=== PATIENT | male | born 1945 | race Asian ===

== ENCOUNTER 2019-09-26 17:11 | Inpatient (IN) | payer MEDICARE ==
[2019-09-26] VITALS (14 sets, daily range): BP systolic 100–168; BP diastolic 62–97
[~2019-09-26] VITALS: Ht 162.6 cm; Wt 67.1 kg
[2019-09-26] MEDS ORDERED: PROPOFOL 100 ML ONE (17:13)
[2019-09-26] MEDS ORDERED: WATER FOR INJECTION,STERILE 10 ML ONE (17:29)
--- NOTE | 2019-09-26 17:30 | NUR ---
patient came in from care facility, in respiratory failure s/p choking episode, intubated in the field. , RN, RT at bedside. connected to the monitor and pulse ox. IV acces initiated, on the LAC g18 with good blood return. Will continue to monitor accordingly.
[2019-09-26 17:34] LABS: BASOPHILS # (AUTO) 0.1 /CMM (0.0-0.2); BASOPHILS % (AUTO) 0.3 % (0.0-2.0); EOSINOPHILS % (AUTO) 0.2 % (0.0-6.0); HEMATOCRIT 33 % (39-51); HEMOGLOBIN 10.4 g/dL (13.5-17.5); LYMPHOCYTES # (AUTO) 3.2 /CMM (0.8-4.8); LYMPHOCYTES % (AUTO) 16.7 % (20.0-44.0); MEAN CORPUSCULAR HGB CONC 31 g/dl (31.0-36.0); MEAN CORPUSCULAR VOLUME 97 fL (80-96); MONOCYTES # (AUTO) 0.7 /CMM (0.1-1.30); MONOCYTES % (AUTO) 3.8 % (2.0-12.0); PLATELET COUNT (AUTO) 166 /CMM (150-450); RED BLOOD CELL COUNT(AUTO) 3.44 MIL/uL (4.5-6.0); WHITE BLOOD COUNT (AUTO) 18.9 K/uL (4.3-11.0)
[2019-09-26 17:45] LABS: CARBON DIOXIDE 28 mmol/L (21-32); CHLORIDE 102 mmol/L (98-107); CREATININE 3.4 mg/dL (0.6-1.3); GLUCOSE 312 mg/dL (74-106); POTASSIUM 4.5 mmol/L (3.5-5.1); SODIUM SERUM 140 mmol/L (136-145); UREA NITROGEN, BLOOD 33 mg/dL (7-18)
[2019-09-26 17:51] LABS: ALANINE AMINOTRANSFERASE 11 U/L (12-78); ALBUMIN 2.9 g/dL (3.4-5.0); ALKALINE PHOSPHATASE 77 U/L (46-116); ASPARTATE AMINOTRANSFERASE 24 U/L (15-37); BILIRUBIN,DIRECT 0.1 mg/dL (0.0-0.2); BILIRUBIN,TOTAL 0.6 mg/dL (0.2-1.0); TOTAL PROTEIN, SERUM 6.1 g/dL (6.4-8.2)
[2019-09-26] MEDS ORDERED: VECURONIUM 10 MG VIAL IV ONE ×2 (18:00→20:56)
--- NOTE | 2019-09-26 18:01 | NUR ---
see code kiko notes Addendum: 09/26/19 at 1925 by LONDON see code kiko form
[2019-09-26] MEDS ORDERED: MEGE40TA5 PO (18:10)
[2019-09-26] MEDS ORDERED: ATOR10TA PO (18:10)
[2019-09-26] MEDS ORDERED: HYDR-3802 PO (18:10)
[2019-09-26] MEDS ORDERED: SEVE800T8 PO (18:10)
[2019-09-26] MEDS ORDERED: LEVO150T8 PO (18:10)
[2019-09-26] MEDS ORDERED: METO25TA3 PO (18:10)
[2019-09-26] MEDS ORDERED: MAGN400O6 PO (18:10)
[2019-09-26] MEDS ORDERED: NATE120T6 PO (18:10)
[2019-09-26] MEDS ORDERED: AMLO10TA7 PO (18:10)
[2019-09-26] MEDS ORDERED: OMEP40CA13 PO (18:10)
[2019-09-26] MEDS ORDERED: NA P133E RC (18:10)
[2019-09-26] MEDS ORDERED: CLON0.1T PO (18:10)
[2019-09-26] MEDS ORDERED: BISA10SU11 RC (18:10)
[2019-09-26] MEDS ORDERED: VANC125C11 PO (18:10)
[2019-09-26] MEDS ORDERED: HYDR-4384 PO (18:10)
[2019-09-26] MEDS ORDERED: HYDR20TA17 PO (18:10)
[2019-09-26] MEDS ORDERED: DOXA4TAB3 PO (18:10)
--- NOTE | 2019-09-26 18:20 | NUR ---
RT REPORT, @171 PT. 74 Y OLD REC. IN ER ORALLY INTUBATED ETT 6.5 @ 26 CM LIP LINE. PLACED ON VENT WITH NOTED SETTINGS PER Finn TOLEDO (AC,14,400,100%+5) ETT TUBE ADJUSTED ( AT 23 CM LIP) LINE AND SECURED ETT WITH ANCHOR FAST. @174 ABG RESULTS REPORTED TO Finn TOLEDO @175 ETT CHANGED TO 8.0 @ 23 CM LIP LINE BY DR. REID BY BOUGIE AND GOOD COLOR EXCHANGED NOTED VIA CAPNOGRAPHY EQUAL CHEST RISE NOTED B/S BILATERALLY RHONCHI SUCTIONED FOR MODERATED GAYTAN THICK FOOD LIKE SECRETIONS. @180 PT. CODED PULSELESS CPR STARTED/AMBU BAGGED PT. @180 PT. PULSE BACK PT. PLACED BACK ON VENT WITH NOTED VENT CHANGES BY Finn TOLEDO (AC,28,400,100%+10). AMBU BAG REMAIN AT THE BEDSIDE. VENT PLUGGED INTO RED OUTLET. REPORT WILL BE PASS TO PM SHIFT. Addendum: 09/26/19 at 1858 by TATIANNA BELL RT Amended: Links added.
[2019-09-26 18:30] LABS: ABG BASE EXCESS -6.2 mmol/L; ABG OXYGEN SATURATION 44.2 % (92.0-98.5); ABG PCO2 82.6 mmHg (35.0-45.0); ABG PH 7.093 (7.350-7.450); ABG PO2 33.6 mmHg (75.0-100.0); AaDO2 596.8 mmHg; COHb 0.7 % (0.5-1.5); MetHb 0.4 % (0.0-1.5); O2Hb 43.7 % (94.0-97.0); PEEP,BG 5 cm H2O; SITE, ABG Left Brachial; VT, ABG 450 mL
[2019-09-26] MEDS ORDERED: VANCOMYCIN 1 GM in IV D5W 250 ML IV ONE (19:00)
[2019-09-26] MEDS ORDERED: PIPERACILLIN /TAZOBACTAM 2.25 G in IV D5W 50 ML IV ONE (19:00)
[2019-09-26] MEDS ORDERED: IV NS 0.9% 1,000 ML BAG IV ONE (19:00)
--- NOTE | 2019-09-26 19:15 | NUR ---
END TIME FOR [facility]: 1944 END TIME [facility]: 2014
[2019-09-26 19:18] LABS: ABG BASE EXCESS -8.7 mmol/L; ABG OXYGEN SATURATION 98.5 % (92.0-98.5); ABG PCO2 56.2 mmHg (35.0-45.0); ABG PH 7.167 (7.350-7.450); ABG PO2 252.9 mmHg (75.0-100.0); AaDO2 403.9 mmHg; COHb 0.3 % (0.5-1.5); MetHb 0.5 % (0.0-1.5); O2Hb 97.7 % (94.0-97.0); PEEP,BG 10 cm H2O; SITE, ABG Right Brachial; VENT MODE, BG AC 28 400 100% +10; VT, ABG 400 mL
[2019-09-26] MEDS ORDERED: ATROPINE SULFATE INJ 0.4 MG/ML VIAL IV ONE (19:30)
[2019-09-26] MEDS ORDERED: NOREPINEPHRINE 4 MG/4 ML AMPUL IV ONE (19:39)
--- NOTE | 2019-09-26 19:45 | NUR ---
END TIME FOR [facility]: 2044
--- NOTE | 2019-09-26 19:46 | NUR ---
Received report from idalia richards rn for continuity of care. awaiting patient arrival.
--- NOTE | 2019-09-26 19:46 | NUR ---
report given to mali OCHOA for sammy.
[2019-09-26] MEDS: NOREPINEPHRINE 8 MG in IV D5W 500 ML IV PRN ×2 (19:53→20:03)
[2019-09-26] MEDS ORDERED: EPINEPHRINE (1:10,000) SYRINGE 1 MG/10 ML DISP.SYRIN IVP ONE (19:57)
[2019-09-26] MEDS ORDERED: SODIUM BICARBONATE SYR 50 MEQ/50 ML DISP.SYRIN IV ONE (19:57)
[2019-09-26] MEDS ORDERED: ONDANSETRON HCL/PF 4 MG/2 ML VIAL IVP PRN (20:00)
[2019-09-26] MEDS ORDERED: ZOLPIDEM TARTRATE 5 MG TABLET PO PRN (20:00)
[2019-09-26] MEDS ORDERED: NA PHOS,M-B/NA PHOS,DI-BA 1 EA ENEMA RC PRN (20:00)
[2019-09-26] MEDS ORDERED: ACETAMINOPHEN 325 MG TABLET PO PRN (20:00)
[2019-09-26] MEDS ORDERED: BISACODYL SUPP (10 MG) 10 MG/SUPP.RECT SUPP.RECT RC PRN (20:00)
[2019-09-26] MEDS ORDERED: HYDROCODONE/APAP 5/325MG 1 EACH TABLET PO PRN (20:00)
[2019-09-26] MEDS ORDERED: MAG HYDROX/AL HYDROX/SIMETH 30 ML UDC PO PRN (20:00)
[2019-09-26] MEDS ORDERED: MAGNESIUM HYDROXIDE 30 ML UDC PO PRN ×2 (20:00)
--- NOTE | 2019-09-26 20:18 | NUR ---
RECTAL TEMP: 93.9 MD AWARE. ICU MADE AWARE OF THE BEARHUGGER
[2019-09-26] MEDS ORDERED: FEE PK DOSING 1 MIN EA MC ONE (20:28)
[2019-09-26] MEDS ORDERED: NOREPINEPHRINE 16 MG in IV D5W 500 ML IV PRN (20:30)
[2019-09-26] MEDS ORDERED: VANCOMYCIN POST DIALYSIS 500MG IV PRN ×2 (20:30)
--- NOTE | 2019-09-26 20:30 | NUR ---
PT WAS TRANSFERRED TO ICU UNDER ACLS
--- NOTE | 2019-09-26 21:00 | NUR ---
Received patient in no acute distress in bed. patient is sedated on propofol. Intubated with ETT 03/24 at the lip. Tolerating vent setting well. Placed patient on telemetry with SR 1st degree heart block with BBB. Right femoral tlc picc line is clean dry intact and patent with propofol @ 5mcg, levo @ 4mcg, and NS bolus to gravity. Bed in low lock position with rails up x 2. call light within reach and all safety measures ensured and carried out. will continue to monitor patient.
[2019-09-26] MEDS: IV NS 0.9% 1,000 ML IV PRN (21:34)
[2019-09-26] MEDS: PROPOFOL 100 ML IV PRN (21:44)
--- NOTE | 2019-09-26 22:30 | NUR ---
Blood pressure wnl and levophed titrated off. Patient tolerating well. will continue to monitor vitals.
[2019-09-26 22:44] LABS: ABG BASE EXCESS -1.3 mmol/L; ABG OXYGEN SATURATION 98.8 % (92.0-98.5); ABG PCO2 29.9 mmHg (35.0-45.0); ABG PH 7.477 (7.350-7.450); ABG PO2 397.9 mmHg (75.0-100.0); AaDO2 285.2 mmHg; COHb 0.3 % (0.5-1.5); MetHb 0.6 % (0.0-1.5); O2Hb 97.9 % (94.0-97.0); PEEP,BG 0 cm H2O; SITE, ABG Right Brachial; VENT MODE, BG AC 28 400 100% +0; VT, ABG 400 mL
[2019-09-26] MEDS: ATORVASTATIN 10 MG TABLET PO SCH (23:19)
[2019-09-27] VITALS (45 sets, daily range): BP systolic 90–150; BP diastolic 57–86
[2019-09-27] MEDS ORDERED: PIPERACILLIN /TAZOBACTAM 3.375 G in IV D5W 50 ML IV SCH ×2
--- NOTE | 2019-09-27 00:45 | NUR ---
notified Dr. Flores of critical lab value troponin-12.167 with order to start heparin drip per acs protocol. read back orders performed and carried out.
[2019-09-27] MEDS ORDERED: HEPARIN SODIUM,PORCINE/PF 50 UNIT/5 ML DISP.SYRIN IV ONE (01:00)
[2019-09-27] MEDS: HEPARIN INFUSION/D5W 500 ML IV PRN (01:18)
[2019-09-27] MEDS ORDERED: HEPARIN SODIUM, PORCINE 5000 UNITS/1 ML VIAL IV ONE (01:30)
[2019-09-27 04:32] LABS: BASOPHILS % (AUTO) 0.3 % (0.0-2.0); EOSINOPHILS % (AUTO) 0.2 % (0.0-6.0); HEMATOCRIT 25 % (39-51); HEMOGLOBIN 8.1 g/dL (13.5-17.5); LYMPHOCYTES # (AUTO) 0.8 /CMM (0.8-4.8); LYMPHOCYTES % (AUTO) 6.4 % (20.0-44.0); MEAN CORPUSCULAR HGB CONC 32 g/dl (31.0-36.0); MEAN CORPUSCULAR VOLUME 93 fL (80-96); MONOCYTES # (AUTO) 0.5 /CMM (0.1-1.30); MONOCYTES % (AUTO) 3.8 % (2.0-12.0); NEUTROPHILS # (AUTO) 11.1 /CMM (1.8-8.9); NEUTROPHILS % (AUTO) 89.3 % (43.0-81.0); PLATELET COUNT (AUTO) 113 /CMM (150-450); RED BLOOD CELL COUNT(AUTO) 2.67 MIL/uL (4.5-6.0); WHITE BLOOD COUNT (AUTO) 12.5 K/uL (4.3-11.0)
[2019-09-27 04:53] LABS: CALCIUM, SERUM 7.1 mg/dL (8.5-10.1); CARBON DIOXIDE 29 mmol/L (21-32); CHLORIDE 106 mmol/L (98-107); CREATININE 3.6 mg/dL (0.6-1.3); GLUCOSE 211 mg/dL (74-106); MAGNESIUM 1.6 mg/dL (1.8-2.4); PHOSPHORUS 2.5 mg/dL (2.5-4.9); POTASSIUM 4.4 mmol/L (3.5-5.1); SODIUM SERUM 142 mmol/L (136-145); UREA NITROGEN, BLOOD 42 mg/dL (7-18)
[2019-09-27 04:58] LABS: CHOLESTEROL 55 mg/dL (<200); HDL CHOLESTEROL 25 mg/dL (40-60); LDL 20 mg/dL (0-99); TRIGLYCERIDES 30 mg/dL (30-150)
--- NOTE | 2019-09-27 05:30 | NUR ---
Received critical lab value ptt- 124.6 0605- held heparin for 60 min and restart with a decrease of 150 units. 0705- Restarted heparin at 555 per protocol and ordered aptt in 6 hrs at 1300.
[2019-09-27] MEDS: IV NS 0.9% 1,000 ML IV PRN ×2 (06:58→18:12)
--- NOTE | 2019-09-27 07:57 | NUR ---
Yonathan STONE POLISHER MACHINE aware of patient "twitches"
--- NOTE | 2019-09-27 07:58 | NUR ---
Patient remains in no acute distress in bed. patient continues sedated on propofol with frequent twitching for 1-2 seconds elicited by loud noises. No signs of bleeding noted. patient tolerating vent setting well. endorsed care to am RN for continuity of care.
[2019-09-27] MEDS ORDERED: Magnesium 1GM/D5W 100ML PREMIX 100 ML IV SCH (08:00)
[2019-09-27] MEDS: LEVOTHYROXINE SODIUM 75 MCG TABLET PO SCH (08:06)
[2019-09-27] MEDS: PANTOPRAZOLE 40 MG TABLET.DR PO SCH ×2 (08:06→18:10)
[2019-09-27] MEDS: SEVELAMER CARBONATE 800 MG TABLET PO SCH ×3 (08:06→18:10)
[2019-09-27] MEDS: MEGESTROL ACETATE 40 MG TABLET PO SCH ×2 (08:06→18:10)
[2019-09-27] MEDS: HYDROCORTISONE 20 MG TABLET PO SCH ×2 (08:12→18:10)
[2019-09-27] MEDS: METOPROLOL SUCCINATE 50 MG TAB.SR.24H PO SCH (08:14)
--- NOTE | 2019-09-27 08:17 | NUR ---
WOUND CARE CONSULT: PT PRESENTS WITH MULTIPLE SKIN ISSUES PRESENT ON ADMISSION INCLUDING BUTTOCKS INCONTINENCE ASSOCIATED SKIN DAMAGE, VERY BONY SACRAL AREA AND RT 3RD TOE WOUND. RECOMMEND SURGICAL AND DPM CONSULTS. DR MICHEL AND DR PANDA NOTIFIED OF CONSULT REQUESTS. FIRST STEP LOW AIRLOSS MATTRESS ORDERED. ALL SKIN PROTECTION RECOMMENDATIONS DISCUSSED WITH NURSING STAFF. PT INTUBATED WITH CURRENT SHAILESH SCORE OF 9. WILL SEE PRN. DUONG IN AGREEMENT WITH PLAN OF CARE. DIETARY CONSULT IN PLACE. Addendum: 09/27/19 at 0821 by GERALDO HAMEED WNDNU Amended: Links added.
[2019-09-27] MEDS ORDERED: NATEGLINIDE 60 MG TABLET PO PRN (09:00)
[2019-09-27] MEDS: VANCOMYCIN HCL 125 MG/2.5 ML ORAL.SUSP PO SCH ×2 (12:43→18:10)
[2019-09-27] MEDS: PROPOFOL 100 ML IV PRN (12:44)
[2019-09-27] MEDS: PIPERACILLIN /TAZOBACTAM 2.25 G in IV D5W 50 ML IV SCH ×2 (14:00→21:00)
[2019-09-27] MEDS: LORAZEPAM INJ 2 MG/ML VIAL IV PRN (14:53)
--- NOTE | 2019-09-27 16:16 | NUR ---
RT RECEIVED PT ORALLY INTUBATED WITH 8.0 ETT SECURED AT 23 CM AT THE LIP. POWER PLANT OPERATOR DONE. VENT PLUGGED INTO RED OUTLET. ALARMS ON AND WORKING PROPERLY. SUCTIONED MOD AMOUNTS OF GAYTAN SECRETIONS. NO SOB OR SIGNS OF DISTRESS NOTED AT THIS TIME. WILL CONTINUE TO MONITOR FOR ANY CHANGES. Addendum: 09/27/19 at 1835 by OLIVERIO LOPEZ RT Amended: Links added.
--- NOTE | 2019-09-27 16:24 | NUR ---
Per Camryn from central supply, [employer] mattress has been ordered from supplier, unknown ETA.
[2019-09-27] MEDS ORDERED: HYDROCORTISONE 10 MG TABLET PO SCH (18:00)
--- NOTE | 2019-09-27 19:00 | NUR ---
Received patient orally intubated on AC mode, breathing regular and non labored,but slightly tachypneic with RR 28-30 ,with PIP= 32. Sedated on low dose Propofol ,slight cough and gag when suctioned, no movement of any extremities even to deep pain (flaccid), noted twitching of face/eyes .Off Levophed drip (BP stable), On Heparin drip @ 555 units /hr. (ACS Protocol), will closely monitor for S/S of bleeding. OGT clamped,no feeding at this time. Patient Anuric with HD catheter @ right subclavian. Triple Lumen Catheter @ right femoral area.Comfort care done.Seizure Precaution/ Aspiration Precaution and turning q 2 hrs.
--- NOTE | 2019-09-27 19:58 | NUR ---
RECEIVED PT ORALLY INTUBATED WITH 8.0 SECURED @ 23 CM LIP LINE ON VENT WITH NOTED SETTINGS . NO RESP DISTRESS NOTED. PT TOLERATING VENT SETTINGS. PT IS SEDATED AND RESPONDS TO STIMULI WHEN SUCTION. CUFF LONG DISTANCE OPERATOR, SX'D DONE PRN. VENT ALARMS SET AND AUDIBLE. AMBU BAG AT BEDSIDE. VENT PLUGGED INTO RED OUTLET. WILL CONTINUE TO MONITOR THE PT T/O SHIFT.
[2019-09-27] MEDS ORDERED: VALPROATE 750 MG in IV D5W 100 ML IV ONE (21:00)
[2019-09-27] MEDS: ATORVASTATIN 10 MG TABLET PO SCH (22:00)
--- NOTE | 2019-09-27 22:00 | NUR ---
No change in status ,still with facial twitching and slightly of arms. Not in any distress.v/S stable.
[2019-09-28] VITALS (31 sets, daily range): BP systolic 95–145; BP diastolic 56–84
[2019-09-28] MEDS: VANCOMYCIN HCL 125 MG/2.5 ML ORAL.SUSP PO SCH ×4 (00:06→18:10)
--- NOTE | 2019-09-28 00:15 | NUR ---
lab called relayed lactic acid=2.2
--- NOTE | 2019-09-28 01:15 | NUR ---
Dr. Flores responded,relayed lactic acid of 2.2 . no orders but to repeat lactic acid in am.
--- NOTE | 2019-09-28 02:00 | NUR ---
Am bath done,. a little tachypneic after turning and moving patient after AM care.
--- NOTE | 2019-09-28 02:45 | NUR ---
Twitching seems a little more, Ativan given.
[2019-09-28] MEDS: LORAZEPAM INJ 2 MG/ML VIAL IV PRN (02:46)
--- NOTE | 2019-09-28 04:00 | NUR ---
Twitching subsided, patient calm, no response, + slight cough and slight gag, on low dose Propofol.
[2019-09-28 04:40] LABS: BASOPHILS % (AUTO) 0.4 % (0.0-2.0); EOSINOPHILS % (AUTO) 0.3 % (0.0-6.0); HEMATOCRIT 23 % (39-51); HEMOGLOBIN 7.5 g/dL (13.5-17.5); LYMPHOCYTES # (AUTO) 0.8 /CMM (0.8-4.8); LYMPHOCYTES % (AUTO) 7.5 % (20.0-44.0); MEAN CORPUSCULAR HGB CONC 33 g/dl (31.0-36.0); MEAN CORPUSCULAR VOLUME 93 fL (80-96); MONOCYTES # (AUTO) 0.5 /CMM (0.1-1.30); MONOCYTES % (AUTO) 4.9 % (2.0-12.0); NEUTROPHILS # (AUTO) 8.8 /CMM (1.8-8.9); NEUTROPHILS % (AUTO) 86.9 % (43.0-81.0); PLATELET COUNT (AUTO) 122 /CMM (150-450); RED BLOOD CELL COUNT(AUTO) 2.44 MIL/uL (4.5-6.0); WHITE BLOOD COUNT (AUTO) 10.2 K/uL (4.3-11.0)
[2019-09-28 04:57] LABS: CALCIUM, SERUM 6.4 mg/dL (8.5-10.1); CARBON DIOXIDE 23 mmol/L (21-32); CHLORIDE 105 mmol/L (98-107); CREATININE 4.7 mg/dL (0.6-1.3); GLUCOSE 95 mg/dL (74-106); MAGNESIUM 1.8 mg/dL (1.8-2.4); PHOSPHORUS 2.9 mg/dL (2.5-4.9); POTASSIUM 4.3 mmol/L (3.5-5.1); SODIUM SERUM 141 mmol/L (136-145); UREA NITROGEN, BLOOD 51 mg/dL (7-18)
[2019-09-28] MEDS: PIPERACILLIN /TAZOBACTAM 2.25 G in IV D5W 50 ML IV SCH ×3 (05:09→20:43)
[2019-09-28 05:28] LABS: IRON, SERUM 56 ug/dl (50-175); TOTAL IRON BINDING CAPACITY 59 ug/dl (250-450)
[2019-09-28] MEDS: VALPROATE 250 MG in IV NS 0.9% 100 ML IV SCH ×2 (05:48→14:33)
[2019-09-28] MEDS: IV NS 0.9% 1,000 ML IV PRN ×2 (05:51→20:30)
[2019-09-28 05:54] LABS: FERRITIN 3011 ng/mL (8-388); THYROID STIMULATING HORMONE 17.505 uIU/mL (0.358-3.74)
[2019-09-28 05:55] LABS: VALPROIC ACID 25 ug/mL (50-100)
[2019-09-28] MEDS: PROPOFOL 100 ML IV PRN (06:09)
--- NOTE | 2019-09-28 06:30 | NUR ---
Dr. Flores responded to call, relayed lactic acid of 2.9 from2.2 last night ,no further orders except to just continue IV Fluid.
--- NOTE | 2019-09-28 07:00 | NUR ---
Report given to Gino OCHOA
[2019-09-28 07:53] LABS: ABG BASE EXCESS -0.6 mmol/L; ABG PCO2 27.3 mmHg (35.0-45.0); ABG PH 7.519 (7.350-7.450); ABG PO2 129.5 mmHg (75.0-100.0); AaDO2 124.3 mmHg; COHb 0.3 % (0.5-1.5); MetHb 0.6 % (0.0-1.5); O2Hb 97.1 % (94.0-97.0); SITE, ABG Right Radial
[2019-09-28] MEDS: LEVOTHYROXINE SODIUM 75 MCG TABLET PO SCH (08:21)
[2019-09-28] MEDS: SEVELAMER CARBONATE 800 MG TABLET PO SCH ×3 (08:22→18:08)
[2019-09-28] MEDS: PANTOPRAZOLE 40 MG TABLET.DR PO SCH ×2 (08:56→18:08)
[2019-09-28] MEDS: METOPROLOL SUCCINATE 50 MG TAB.SR.24H PO SCH (08:56)
[2019-09-28] MEDS: HYDROCORTISONE 20 MG TABLET PO SCH ×2 (08:56→18:07)
[2019-09-28] MEDS: MEGESTROL ACETATE 40 MG TABLET PO SCH ×2 (08:56→18:08)
[2019-09-28] MEDS: HYDROGEL DRESSING 90 GM TUBE TP SCH (08:57)
--- NOTE | 2019-09-28 10:09 | NUR ---
RN NOTE 0715: Received patient on sedation of Diprivan 10 for continuous twitching/seizure. ETT to vent, tolerated setting, no respiratory distress noted at this time. With left NGT intact, clamped, noted with gurgling sound upon auscultation. With right fem TLC, on Heparin @ 550u/hr and NS @ 100. On isolation for CDiff, maintained and observed. 0800: S/E by Jozef CHOE, awaiting cardio consult. 0820: S/E by Dr. Sewell, still noted with twitching on face and arms at times. 0940: S/E by Dr. Mai, awaiting HD nurse today for HD. 1000: Jozef CHOE spoke with Dr. Herrera for cardio consult, with order of Trop x2 6hr apart.
--- NOTE | 2019-09-28 16:25 | NUR ---
RN NOTE HD nurse reported 1000mL out. Removed Diprivan, no twitching noted, will continue to monitor.
[2019-09-28 16:55] LABS: BASOPHILS % (AUTO) 0.2 % (0.0-2.0); EOSINOPHILS % (AUTO) 0.1 % (0.0-6.0); HEMATOCRIT 25 % (39-51); HEMOGLOBIN 8.2 g/dL (13.5-17.5); LYMPHOCYTES # (AUTO) 0.5 /CMM (0.8-4.8); LYMPHOCYTES % (AUTO) 4.2 % (20.0-44.0); MEAN CORPUSCULAR HGB CONC 33 g/dl (31.0-36.0); MEAN CORPUSCULAR VOLUME 92 fL (80-96); MONOCYTES # (AUTO) 0.4 /CMM (0.1-1.30); MONOCYTES % (AUTO) 4.1 % (2.0-12.0); NEUTROPHILS # (AUTO) 9.9 /CMM (1.8-8.9); NEUTROPHILS % (AUTO) 91.4 % (43.0-81.0); PLATELET COUNT (AUTO) 126 /CMM (150-450); RED BLOOD CELL COUNT(AUTO) 2.68 MIL/uL (4.5-6.0); WHITE BLOOD COUNT (AUTO) 10.8 K/uL (4.3-11.0)
[2019-09-28] MEDS: HEPARIN INFUSION/D5W 500 ML IV PRN (19:04)
[2019-09-28] MEDS: ATORVASTATIN 10 MG TABLET PO SCH (21:43)
[2019-09-28] MEDS: VALPROATE 500 MG in IV NS 0.9% 100 ML IV SCH (21:44)
[2019-09-29] VITALS (24 sets, daily range): BP systolic 98–150; BP diastolic 47–79
[2019-09-29] MEDS: VANCOMYCIN HCL 125 MG/2.5 ML ORAL.SUSP PO SCH ×4 (00:32→17:19)
[2019-09-29 01:13] LABS: OCCULT BLOOD STOOL POSITIVE (NEGATIVE)
[2019-09-29 04:23] LABS: BASOPHILS % (AUTO) 0.2 % (0.0-2.0); EOSINOPHILS % (AUTO) 0.1 % (0.0-6.0); HEMATOCRIT 24 % (39-51); HEMOGLOBIN 8.1 g/dL (13.5-17.5); LYMPHOCYTES # (AUTO) 0.5 /CMM (0.8-4.8); LYMPHOCYTES % (AUTO) 4.9 % (20.0-44.0); MEAN CORPUSCULAR HGB CONC 33 g/dl (31.0-36.0); MEAN CORPUSCULAR VOLUME 93 fL (80-96); MONOCYTES # (AUTO) 0.4 /CMM (0.1-1.30); NEUTROPHILS # (AUTO) 9.8 /CMM (1.8-8.9); NEUTROPHILS % (AUTO) 90.8 % (43.0-81.0); PLATELET COUNT (AUTO) 144 /CMM (150-450); RED BLOOD CELL COUNT(AUTO) 2.61 MIL/uL (4.5-6.0); WHITE BLOOD COUNT (AUTO) 10.8 K/uL (4.3-11.0)
[2019-09-29 04:37] LABS: CALCIUM, SERUM 6.9 mg/dL (8.5-10.1); CARBON DIOXIDE 26 mmol/L (21-32); CHLORIDE 105 mmol/L (98-107); CREATININE 3.9 mg/dL (0.6-1.3); GLUCOSE 85 mg/dL (74-106); MAGNESIUM 1.8 mg/dL (1.8-2.4); PHOSPHORUS 3.8 mg/dL (2.5-4.9); POTASSIUM 4.4 mmol/L (3.5-5.1); SODIUM SERUM 140 mmol/L (136-145); UREA NITROGEN, BLOOD 38 mg/dL (7-18)
[2019-09-29 04:44] LABS: VALPROIC ACID 38 ug/mL (50-100)
--- NOTE | 2019-09-29 05:45 | NUR ---
KENNEL SUPERVISOR: PT HAD NO SIGNIFICANT BROCK DURING THE SHIFT EXCEPT BECAME HYPOTHERMIC WT T=95.8 AT 0400. PLACED ON TIERRA HUGGER. NO TREMORS/SEIZURE NOTED. SR WT 1ST DEGREE AV BLOCK ON RADIO BOARD OPERATOR. VENT SETTINGS ORDERED WT NO ACUTE DISTRESS. EYES OPEN AND BLINK DURING ADL/ORAL CARE. PTT=51.1, NO CHANGE ON HEPARIN RATE AT 555UNITS/HR AND WILL DRAW ANOTHER PTT IN AM. MADE AWARE OF LACTIC=2.0 WT NO NEW ORDER. WILL CONTINUE TO MONITOR.
[2019-09-29] MEDS: PIPERACILLIN /TAZOBACTAM 2.25 G in IV D5W 50 ML IV SCH ×3 (05:59→20:00)
[2019-09-29] MEDS: IV NS 0.9% 1,000 ML IV PRN ×2 (06:00→20:51)
--- NOTE | 2019-09-29 07:30 | NUR ---
ICU/RN: Pt received, no distress, tolerating current vent settings; isolation precautions observed. DAIJA Haskins at bedside; informed pt is positive for occult blood in stool. Orders noted and carried out.
[2019-09-29 08:13] LABS: BILIRUBIN,DIRECT 0.1 mg/dL (0.0-0.2); BILIRUBIN,TOTAL 0.5 mg/dL (0.2-1.0)
[2019-09-29] MEDS: MEGESTROL ACETATE 40 MG TABLET PO SCH ×2 (08:19→17:18)
[2019-09-29] MEDS: METOPROLOL SUCCINATE 50 MG TAB.SR.24H PO SCH (08:20)
[2019-09-29] MEDS: HYDROGEL DRESSING 90 GM TUBE TP SCH (08:20)
[2019-09-29] MEDS: HYDROCORTISONE 20 MG TABLET PO SCH ×2 (08:20→17:18)
[2019-09-29] MEDS: PANTOPRAZOLE 40 MG TABLET.DR PO SCH ×2 (08:20→17:19)
[2019-09-29] MEDS: LEVOTHYROXINE SODIUM 75 MCG TABLET PO SCH (08:20)
--- NOTE | 2019-09-29 08:45 | NUR ---
ICU/RN: Dr Sewell at bedside; updated on pt status. No seizure activity noted; updated on Depakote level.
--- NOTE | 2019-09-29 09:30 | NUR ---
ICU/RN: Dr Melo at bedside; updated on pt status, remains off sedation. No new orders.
[2019-09-29] MEDS: VALPROATE 500 MG in IV NS 0.9% 100 ML IV SCH ×2 (10:04→20:47)
[2019-09-29] MEDS: SEVELAMER CARBONATE 0.8 GM POWD.PACK GT SCH ×3 (10:04→17:18)
--- NOTE | 2019-09-29 15:30 | NUR ---
ICU/RN: Pt with BM; smear, not enough to collect as sample. Hygienic and wound care rendered.
--- NOTE | 2019-09-29 17:29 | NUR ---
PT RECEIVED ORALLY INTUBATED ON MECHANICAL VENT W/ NOTED SETTINGS. VENT IN RED OUTLET, VENT ALARMS CHECKED AND AUDIBLE, AMBUBAG AT BEDSIDE. PT SX;ED AND LAVAGED PRN. BREATH SOUNDS EQUAL, RHONCHI; ETT SECURE, PATENT AND CLEAN. Addendum: 09/29/19 at 1729 by VIC SALEEM RT Amended: Links added.
--- NOTE | 2019-09-29 18:00 | NUR ---
ICU/RN: Family at bedside; updated on pt status. No new neurological events off sedation. Family to arrange for credit card analyst/account strategist services.
--- NOTE | 2019-09-29 19:16 | NUR ---
RECEIVED PT ORALLY INTUBATED WITH 8.0 SECURED @ 23 CM LIP LINE ON VENT WITH NOTED SETTINGS . NO RESP DISTRESS NOTED. PT TOLERATING VENT SETTINGS. PT IS OBTUNDED. CUFF CUP TRIMMING MACHINE OPERATOR, SX'D DONE PRN. VENT ALARMS SET AND AUDIBLE. AMBU BAG AT BEDSIDE. VENT PLUGGED INTO RED OUTLET. WILL CONTINUE TO MONITOR THE PT T/O SHIFT.
--- NOTE | 2019-09-29 20:00 | NUR ---
Received patient orally intubated obtunded on AC mode,well tolerated breathing even regular and non labored, OGT clamped, pt is npo except meds.. Patient Anuric with HD catheter @ right subclavian. Triple Lumen Catheter @ right femoral area.Seizure Precaution/ Aspiration Precaution and turning q 2 hrs.family at bedside made aware of pt condition, all due meds given as ordered ,ivf of ns at 100ml /hr infusing well v/s stable afebrile . for hd marcial as ordered, kept pts clean dry and comfortable.noted also with generalize edema elevate with pillows. Addendum: 09/30/19 at 0054 by RON SAUL RN edema noted on bilateral upper extremities elevated with pillows.
[2019-09-29] MEDS: ATORVASTATIN 10 MG TABLET PO SCH (22:42)
[2019-09-30] VITALS (24 sets, daily range): BP systolic 101–153; BP diastolic 43–79
[2019-09-30] MEDS: VANCOMYCIN HCL 125 MG/2.5 ML ORAL.SUSP PO SCH ×5 (00:20→23:44)
[2019-09-30 05:00] LABS: BASOPHILS % (AUTO) 0.1 % (0.0-2.0); EOSINOPHILS % (AUTO) 0.1 % (0.0-6.0); HEMATOCRIT 25 % (39-51); HEMOGLOBIN 8.2 g/dL (13.5-17.5); LYMPHOCYTES # (AUTO) 0.4 /CMM (0.8-4.8); LYMPHOCYTES % (AUTO) 6.5 % (20.0-44.0); MEAN CORPUSCULAR HGB CONC 33 g/dl (31.0-36.0); MEAN CORPUSCULAR VOLUME 93 fL (80-96); MONOCYTES # (AUTO) 0.3 /CMM (0.1-1.30); MONOCYTES % (AUTO) 5.3 % (2.0-12.0); NEUTROPHILS # (AUTO) 5.8 /CMM (1.8-8.9); PLATELET COUNT (AUTO) 145 /CMM (150-450); RED BLOOD CELL COUNT(AUTO) 2.64 MIL/uL (4.5-6.0); WHITE BLOOD COUNT (AUTO) 6.6 K/uL (4.3-11.0)
[2019-09-30] MEDS: PIPERACILLIN /TAZOBACTAM 2.25 G in IV D5W 50 ML IV SCH ×3 (05:09→20:47)
--- NOTE | 2019-09-30 06:30 | NUR ---
agricultural research technician notes pts remains in bed on ventilator ac setting well tolerated , npo status , v/s stable afebrile,will endorse to rn day shift for continuity of care.
--- NOTE | 2019-09-30 07:00 | NUR ---
Received pt intubated, ON AC mode, no sob noted, obtunded, L NGT clamped, patent and auscultated, per report pt is npo except meds. Patient Anuric with HD, HD subclavian intact, R Femoral TLC, intact, clean and dry, iv NS running at 100 ml/hr. pt is swallen in both upper and lower extremities that are elevated on pillows. Seizure Precaution/Aspiration Precaution and turning q 2 hrs maintained. Pending HD toady. Safety measures in place, will monitor.
[2019-09-30] MEDS: SEVELAMER CARBONATE 0.8 GM POWD.PACK GT SCH ×3 (08:42→18:03)
[2019-09-30] MEDS: IV NS 0.9% 1,000 ML IV PRN (08:42)
[2019-09-30] MEDS: HYDROCORTISONE 20 MG TABLET PO SCH ×2 (08:42→18:03)
[2019-09-30] MEDS: LEVOTHYROXINE SODIUM 75 MCG TABLET PO SCH (08:43)
[2019-09-30] MEDS: MEGESTROL ACETATE 40 MG TABLET PO SCH ×2 (09:00→18:03)
[2019-09-30] MEDS: PANTOPRAZOLE 40 MG TABLET.DR PO SCH (09:00)
[2019-09-30] MEDS: METOPROLOL SUCCINATE 50 MG TAB.SR.24H PO SCH (09:00)
[2019-09-30] MEDS: HYDROGEL DRESSING 90 GM TUBE TP SCH (09:10)
[2019-09-30] MEDS: VALPROATE 500 MG in IV NS 0.9% 100 ML IV SCH ×2 (09:37→21:20)
--- NOTE | 2019-09-30 09:38 | NUR ---
RN NOTE MEGACE HELD DUE TO NPO STATUS OF PT. TOPROL XL HELD DUE TO HD AND PT ON NGT TUBE PILL CANNOT BE CRUSHED, PROTONIX NEEDS TO BE CHANGED TO POWDER OR IV FORM, WILL FOLLOW UP WITH MD.
[2019-09-30 10:12] LABS: CALCIUM, SERUM 6.2 mg/dL (8.5-10.1); CARBON DIOXIDE 21 mmol/L (21-32); CHLORIDE 103 mmol/L (98-107); CREATININE 4.4 mg/dL (0.6-1.3); GLUCOSE 78 mg/dL (74-106); MAGNESIUM 1.8 mg/dL (1.8-2.4); PHOSPHORUS 4.9 mg/dL (2.5-4.9); POTASSIUM 4.8 mmol/L (3.5-5.1); SODIUM SERUM 138 mmol/L (136-145); UREA NITROGEN, BLOOD 48 mg/dL (7-18)
[2019-09-30] MEDS ORDERED: EPOETIN ALFA (10,000 UNIT) 10,000 UNIT/ML VIAL IV ONE (11:00)
--- NOTE | 2019-09-30 13:30 | NUR ---
RN NOTE ADVANCED NGT FOR 8 CM FURTHER INTO STOMACH PER RADIOLOGIST POST XRAY OF ABDOMEN, VERIFIED WITH DAIJA ROBERT WELL, HE OKAYED, NOW OKAY TO START FEEDING.
[2019-09-30] MEDS: NEPRO 1,000 ML BOTTLE GT PRN (18:02)
[2019-09-30] MEDS: PANTOPRAZOLE 40 MG VIAL IV SCH (18:02)
--- NOTE | 2019-09-30 19:15 | NUR ---
RN OPENING NOTES RECEIVED PATIENT RESTING IN BED, OBTUNDED. ORALLY INTUBATED, MECHANICAL VENT SETTINGS ORDERED, TOLERATING WELL, NO SOB OR RESPIRATORY DISTRESS NOTED. ON TELE MONITOR SR WITH HR 90'S. IV SITE RIGHT FEMORAL TLC FLUSHING AND PATENT, SITE C/D/I, S/L. RIGHT SUBCLAVIAN HD CATH INTACT. LEFT NARE NGT IN PLACE, FLUSHING AND PATENT, NEPRO RUNNING AT 10ML/HR, NO RESIDUAL NOTED, WILL ADVANCE TOLERATED, GOAL 35ML/HR. SAFETY MEASURES AND ISOLATION PRECAUTIONS IN PLACE; HOB ELEVATED, SR UP X2, BED LOCKED AND IN LOW POSITION, CALL LIGHT WITHIN REACH. WILL CONT TO MONITOR CLOSELY.
--- NOTE | 2019-09-30 20:37 | NUR ---
RN NOTES PAGED FASHION MERCHANDISER MD REGARDING PATIENT STARTED GTUBE FEEDING TODAY WITH HX OF DM. ASKED IF OKAY TO ORDER Q6H ACCUCHECK, STATED OKAY VIA TELEPHONE ORDER. WILL ATTEND TO ORDERS. WILL CONT TO MONITOR PT CLOSELY.
[2019-09-30] MEDS: ATORVASTATIN 10 MG TABLET PO SCH (22:14)
[2019-09-30] MEDS: BLOOD SUGAR DIAGNOSTIC 1 EACH STRIP IN SCH (23:33)
[2019-10-01] VITALS (25 sets, daily range): BP systolic 109–154; BP diastolic 43–115
--- NOTE | 2019-10-01 03:30 | NUR ---
RN NOTES PATIENT NOTED CORE TEMP VIA RECTALLY 96.7 F; TIERRA WAGONER INITIATED AND ROOM TEMP INCREASED. WILL CONT TO MONITOR PT CLOSELY.
[2019-10-01] MEDS: PIPERACILLIN /TAZOBACTAM 2.25 G in IV D5W 50 ML IV SCH ×3 (04:33→21:52)
[2019-10-01 05:16] LABS: BASOPHILS % (AUTO) 0.1 % (0.0-2.0); EOSINOPHILS % (AUTO) 0.2 % (0.0-6.0); HEMATOCRIT 24 % (39-51); LYMPHOCYTES # (AUTO) 0.4 /CMM (0.8-4.8); LYMPHOCYTES % (AUTO) 6.5 % (20.0-44.0); MEAN CORPUSCULAR HGB CONC 33 g/dl (31.0-36.0); MEAN CORPUSCULAR VOLUME 94 fL (80-96); MONOCYTES # (AUTO) 0.4 /CMM (0.1-1.30); NEUTROPHILS # (AUTO) 4.6 /CMM (1.8-8.9); NEUTROPHILS % (AUTO) 85.2 % (43.0-81.0); PLATELET COUNT (AUTO) 162 /CMM (150-450); RED BLOOD CELL COUNT(AUTO) 2.55 MIL/uL (4.5-6.0); WHITE BLOOD COUNT (AUTO) 5.4 K/uL (4.3-11.0)
[2019-10-01] MEDS: BLOOD SUGAR DIAGNOSTIC 1 EACH STRIP IN SCH ×4 (05:19→23:45)
[2019-10-01] MEDS: VANCOMYCIN HCL 125 MG/2.5 ML ORAL.SUSP PO SCH ×4 (05:19→23:53)
[2019-10-01 05:38] LABS: CALCIUM, SERUM 6.4 mg/dL (8.5-10.1); CARBON DIOXIDE 24 mmol/L (21-32); CHLORIDE 105 mmol/L (98-107); CREATININE 4.4 mg/dL (0.6-1.3); GLUCOSE 109 mg/dL (74-106); MAGNESIUM 1.9 mg/dL (1.8-2.4); PHOSPHORUS 4.7 mg/dL (2.5-4.9); POTASSIUM 4.8 mmol/L (3.5-5.1); SODIUM SERUM 139 mmol/L (136-145); UREA NITROGEN, BLOOD 42 mg/dL (7-18)
--- NOTE | 2019-10-01 05:53 | NUR ---
RN NOTES CRITICAL LAB CALLED BY DONNA LACTIC ACID 2.0, PREVIOUS LACTIC ACID 2.2; CHARGE NURSE MADE AWARE AND STATED NO NEED TO CONTACT LABORATORY MILLER MD. WILL CONT TO MONITOR PATIENT.
--- NOTE | 2019-10-01 07:12 | NUR ---
RN CLOSING NOTES PATIENT RESTING IN BED, OBTUNDED. PATIENT CORE TEMP NOW 98.8, TIERRA HUGGER REMOVED. ORALLY INTUBATED, MECHANICAL VENT SETTINGS ORDERED, NO SOB OR RESPIRATORY DISTRESS NOTED. ON TELE MONITOR SR WITH HR 70'S. IV SITE RIGHT FEMORAL TLC FLUSHING AND PATENT, SITE C/D/I, S/L. RIGHT SUBCLAVIAN HD CATH INTACT. LEFT NARE NGT IN PLACE, FLUSHING AND PATENT, NEPRO RUNNING AT 35ML/HR, TOLERATING WELL, MINIMAL RESIDUAL NOTED. KEPT PT CLEAN, DRY, AND COMFORTABLE. SAFETY MEASURES AND ISOLATION PRECAUTIONS MAINTAINED. WILL ENDORSE TO AM RN FOR BROCK.
[2019-10-01 07:37] LABS: BILIRUBIN,DIRECT 0.1 mg/dL (0.0-0.2); BILIRUBIN,TOTAL 0.3 mg/dL (0.2-1.0)
[2019-10-01] MEDS: LEVOTHYROXINE SODIUM 75 MCG TABLET PO SCH (07:44)
[2019-10-01] MEDS: SEVELAMER CARBONATE 0.8 GM POWD.PACK GT SCH ×3 (07:44→17:05)
--- NOTE | 2019-10-01 08:01 | NUR ---
RN OPENING NOTES RECEIVED PATIENT RESTING IN BED COMFORTABLY. PT IS OBTUNDED, NON-VERBAL, AND ON BED REST. HE IS ON MECH VENT VIA ETT, TOLERATING WELL, NO SOB OR RESP DISTRESS NOTED. TELE MONITOR SHOWING SR WITH 12T DEGREE HB. NGT TUBE IN LEFT NASAL NARE IS INTACT, RUNNING NEPRO AT 35 ML/HR, TOLERATING WELL, NO RESIDUAL NOTED. R FEMORAL TLC IS PATENT AND INTACT, R SUBCLAVIAN HD CATH IS INTACT. SAFETY MEASURES HAVE BEEN IMPLEMENTED, CALL LIGHT IS WITHIN REACH, BED IS IN LOWEST AND LOCKED POSITION, SIDE RAILS UP X2, WILL CONTINUE TO MONITOR FOR ANY CHANGES.
[2019-10-01] MEDS: MEGESTROL ACETATE 40 MG TABLET PO SCH ×2 (08:26→17:05)
[2019-10-01] MEDS: VALPROATE 500 MG in IV NS 0.9% 100 ML IV SCH ×2 (08:26→20:59)
[2019-10-01] MEDS: PANTOPRAZOLE 40 MG VIAL IV SCH ×2 (08:26→17:05)
[2019-10-01] MEDS: HYDROCORTISONE 20 MG TABLET PO SCH ×2 (08:26→17:05)
[2019-10-01] MEDS: HYDROGEL DRESSING 90 GM TUBE TP SCH (08:28)
[2019-10-01] MEDS: METOPROLOL SUCCINATE 50 MG TAB.SR.24H PO SCH (08:29)
[2019-10-01] MEDS: INSULIN REGULAR, HUMAN 100 UNIT/ML 3 ML VIAL SQ PRN ×2 (18:34→23:45)
--- NOTE | 2019-10-01 19:28 | NUR ---
RN NOTES PATIENT IS RESTING IN BED COMFORTABLY, ON MECH VENT, TOLERATING WELL. PT IS ON CONTACT ISO, IMPLEMENTED AND ENFORCED AT ALL TIMES. NO S/SX OF DISTRESS PRESENT AT THIS TIME. PT NEEDS HAVE BEEN MET, VITAL SIGNS ARE STABLE, NO ACUTE CHANGES OCCURRED THROUGHOUT THE SHIFT. SAFETY MEASURES HAVE BEEN IMPLEMENTED, CALL LIGHT IS WITHIN REACH, BED IS IN LOWEST AND LOCKED POSITION, SIDE RAILS UP X2, PT HAS BEEN ENDORSED TO NIGHTSHIFT RN FOR BROCK.
--- NOTE | 2019-10-01 19:45 | NUR ---
RESTORATIVE REHAB AIDE NOTES, RECEIVED PATIENT RESTING IN BED, OBTUNDED, NON-VERBAL, ON MECHANICAL VENTILATOR TOLERATED SETTINGS WELL, VIA ETT 03/25, AC 12, TV 450, NO SOB/ACUTE DISTRESS NOTED, AFEBRILE, NSR WITH BBB IN TELE MONITOR, NGT TUBE IN LEFT NASAL NARE IS INTACT, RUNNING NEPRO AT 35 ML/HR, TOLERATING WELL, NO RESIDUAL NOTED, R FEMORAL TLC IS PATENT AND INTACT, R SUBCLAVIAN HD CATH IS INTACT, CALL LIGHT IS WITHIN REACH, BED LOCKED AND IN LOWEST POSITION, SIDE RAILS UP X2, WILL CONTINUE TO MONITOR CLOSELY.
--- NOTE | 2019-10-01 19:56 | NUR ---
RT NOTES PT RECEIVED ORALLY INTUBATED WITH 8.0 ETT @ 23CM AT THE LIP ON [facility] VENT ON CHARTED SETTINGS. NO SIGNS OF RESP DISTRESS AT THIS MOMENT. AIRWAY PATENT AND SECURED. MASSEUR/MASSEUSE DONE. PT SUCTIONED. ALARMS SET AND AUDIBLE. AMBUBAG AT BEDSIDE. VENT CONT TO RED OUTLET. WILL CONT TO MONITOR. Addendum: 10/01/19 at 2038 by MARILIN HENRY RT Amended: Links added.
[2019-10-01] MEDS: ATORVASTATIN 10 MG TABLET PO SCH (21:00)
[2019-10-02] VITALS (26 sets, daily range): BP systolic 83–165; BP diastolic 42–80
[2019-10-02 04:28] LABS: BASOPHILS % (AUTO) 0.4 % (0.0-2.0); EOSINOPHILS % (AUTO) 0.1 % (0.0-6.0); HEMATOCRIT 24 % (39-51); LYMPHOCYTES # (AUTO) 0.5 /CMM (0.8-4.8); LYMPHOCYTES % (AUTO) 10.9 % (20.0-44.0); MEAN CORPUSCULAR HGB CONC 33 g/dl (31.0-36.0); MEAN CORPUSCULAR VOLUME 93 fL (80-96); MONOCYTES # (AUTO) 0.4 /CMM (0.1-1.30); MONOCYTES % (AUTO) 9.6 % (2.0-12.0); NEUTROPHILS # (AUTO) 3.5 /CMM (1.8-8.9); PLATELET COUNT (AUTO) 149 /CMM (150-450); RED BLOOD CELL COUNT(AUTO) 2.59 MIL/uL (4.5-6.0); WHITE BLOOD COUNT (AUTO) 4.4 K/uL (4.3-11.0)
[2019-10-02 04:42] LABS: CALCIUM, SERUM 6.3 mg/dL (8.5-10.1); CARBON DIOXIDE 22 mmol/L (21-32); CHLORIDE 104 mmol/L (98-107); GLUCOSE 115 mg/dL (74-106); POTASSIUM 4.6 mmol/L (3.5-5.1); SODIUM SERUM 138 mmol/L (136-145); UREA NITROGEN, BLOOD 48 mg/dL (7-18)
[2019-10-02] MEDS: PIPERACILLIN /TAZOBACTAM 2.25 G in IV D5W 50 ML IV SCH ×3 (05:22→21:57)
[2019-10-02] MEDS: BLOOD SUGAR DIAGNOSTIC 1 EACH STRIP IN SCH ×5 (05:23→23:29)
[2019-10-02] MEDS: VANCOMYCIN HCL 125 MG/2.5 ML ORAL.SUSP PO SCH ×4 (05:24→23:17)
[2019-10-02] MEDS: INSULIN REGULAR, HUMAN 100 UNIT/ML 3 ML VIAL SQ PRN (05:26)
[2019-10-02] MEDS: NEPRO 1,000 ML BOTTLE GT PRN (07:05)
--- NOTE | 2019-10-02 07:30 | NUR ---
ICU/RN: DAIJA Haskins at bedside; updated on pt status, informed pt's BP trending up towards 160. Family still coming to terms with pt's condition, however requested celery cutter services. New orders noted and carried out.
--- NOTE | 2019-10-02 07:36 | NUR ---
RN NOTES, NO CHANGE IN CONDITION DURING THE NIGHT, CONT ON MECHANICAL VENTILATOR TOLERATED SETTINGS WELL, NO SOB/ACUTE DISTRESS NOTED, ENDORSED TO DON CIFUENTES FOR BROCK.
[2019-10-02] MEDS: SEVELAMER CARBONATE 0.8 GM POWD.PACK GT SCH ×3 (08:08→17:04)
[2019-10-02] MEDS: LEVOTHYROXINE SODIUM 75 MCG TABLET PO SCH (08:09)
[2019-10-02] MEDS: METOPROLOL SUCCINATE 50 MG TAB.SR.24H PO SCH (08:09)
[2019-10-02] MEDS: HYDROGEL DRESSING 90 GM TUBE TP SCH (08:09)
[2019-10-02] MEDS: MEGESTROL ACETATE 40 MG TABLET PO SCH ×2 (08:09→16:04)
[2019-10-02] MEDS: HYDROCORTISONE 20 MG TABLET PO SCH ×2 (08:09→17:05)
[2019-10-02] MEDS: PANTOPRAZOLE 40 MG VIAL IV SCH ×2 (08:09→16:04)
--- NOTE | 2019-10-02 09:00 | NUR ---
ICU/RN: Dr Melo rounds; updated on pt status. Positive gag and cough reflex, no seizure activity noted.
[2019-10-02] MEDS: VALPROATE 500 MG in IV NS 0.9% 100 ML IV SCH ×2 (09:14→20:34)
--- NOTE | 2019-10-02 09:30 | NUR ---
ICU/RN: ANIYA Ramírez at bedside for wound care consult. Informed of L ear abrasion, and worsening sacral MASD. New orders noted and carried out.
[2019-10-02] MEDS ORDERED: EPOETIN ALFA (10,000 UNIT) 10,000 UNIT/ML VIAL IV ONE (12:00)
[2019-10-02] MEDS: NEOMY SULF/BACITRAC ZN/POLY 15 GM TUBE TP SCH (12:10)
[2019-10-02] MEDS: CLOTRIMAZOLE 1% 15 GM TUBE TP SCH ×2 (12:11→16:05)
--- NOTE | 2019-10-02 13:30 | NUR ---
ICU/RN: Wound care rendered, tolerated well. Off Kalee-hugger; pt normothermic.
--- NOTE | 2019-10-02 17:00 | NUR ---
ICU/RN: HD complete; 2L out.
--- NOTE | 2019-10-02 20:30 | NUR ---
RICE FIELD WORKER NOTE RECEIVED PT IN BED OBTUNDED, NON VERBAL, ON VENT TOLERATING THE SETTINGS WELL. ETT INTACT AND PATENT 03/25, NO SOB, NO ACUTE DISTRESS NOTED. TEMP WNL. REMAIN IN ISOLATION FOR C DIFF. ISOLATION PRECAUTIONS TAKEN. ON TELE SR WITH INVERTED T WAVE HR 67. LT NARE NGT INTACT AND PATENT INFUSING NEPRO AT 35 ML/HR, NO RESIDUAL NOTED. RT FEMORAL TLC INTACT AND PATENT. ALSO RT SUBCLAVIAN HG CATH INTACT. SIDE RAILS UP X 3 AND CALL LIGHT WITHIN REACH. VSS. CONTINUE TO MONITOR HIM.
[2019-10-02] MEDS: ATORVASTATIN 10 MG TABLET PO SCH (21:57)
[2019-10-02] MEDS: hydrALAZINE HCL IV 20 MG VIAL IV PRN (23:17)
--- NOTE | 2019-10-02 23:20 | NUR ---
MANAGER HEAVY EQUIPMENT NOTE B/P NOTED 162/68, HYDRALAZINE 0.5 ML IVP GIVEN. CONTINUE TO MONITOR HIM.
--- NOTE | 2019-10-02 23:50 | NUR ---
DOCUMENT PROCESSING SPECIALIST NOTE B/P CAME DOWN TO 132/68
[2019-10-03] VITALS (24 sets, daily range): BP systolic 113–143; BP diastolic 49–73
[2019-10-03 04:44] LABS: BASOPHILS % (AUTO) 0.2 % (0.0-2.0); EOSINOPHILS % (AUTO) 0.7 % (0.0-6.0); HEMATOCRIT 25 % (39-51); HEMOGLOBIN 8.3 g/dL (13.5-17.5); LYMPHOCYTES # (AUTO) 0.5 /CMM (0.8-4.8); MEAN CORPUSCULAR HGB CONC 33 g/dl (31.0-36.0); MEAN CORPUSCULAR VOLUME 93 fL (80-96); MONOCYTES # (AUTO) 0.4 /CMM (0.1-1.30); MONOCYTES % (AUTO) 8.8 % (2.0-12.0); NEUTROPHILS # (AUTO) 3.7 /CMM (1.8-8.9); NEUTROPHILS % (AUTO) 79.3 % (43.0-81.0); PLATELET COUNT (AUTO) 132 /CMM (150-450); RED BLOOD CELL COUNT(AUTO) 2.67 MIL/uL (4.5-6.0); WHITE BLOOD COUNT (AUTO) 4.7 K/uL (4.3-11.0)
[2019-10-03 04:55] LABS: CALCIUM, SERUM 6.7 mg/dL (8.5-10.1); CARBON DIOXIDE 25 mmol/L (21-32); CHLORIDE 103 mmol/L (98-107); CREATININE 3.8 mg/dL (0.6-1.3); GLUCOSE 117 mg/dL (74-106); POTASSIUM 3.9 mmol/L (3.5-5.1); SODIUM SERUM 139 mmol/L (136-145); UREA NITROGEN, BLOOD 32 mg/dL (7-18)
[2019-10-03] MEDS: PIPERACILLIN /TAZOBACTAM 2.25 G in IV D5W 50 ML IV SCH ×3 (05:11→21:00)
[2019-10-03] MEDS: VANCOMYCIN HCL 125 MG/2.5 ML ORAL.SUSP PO SCH ×4 (05:11→23:31)
[2019-10-03] MEDS: BLOOD SUGAR DIAGNOSTIC 1 EACH STRIP IN SCH ×4 (05:33→23:31)
--- NOTE | 2019-10-03 06:47 | NUR ---
BASKET PERSON NOTE NO CHANGE IN CONDITION. PT ON VENT TOLERATING THE SETTINGS WELL, NO DISTRESS OR DISCOMFORT NOTED. NO S/S OF PAIN NOTED. WILL ENDORSE TO DAY SHIFT NURSE FOR CONTINUE TO CARE.
[2019-10-03] MEDS: SEVELAMER CARBONATE 0.8 GM POWD.PACK GT SCH ×3 (08:03→17:03)
[2019-10-03] MEDS: MEGESTROL ACETATE 40 MG TABLET PO SCH ×2 (08:04→16:13)
[2019-10-03] MEDS: LEVOTHYROXINE SODIUM 75 MCG TABLET PO SCH (08:04)
[2019-10-03] MEDS: HYDROCORTISONE 20 MG TABLET PO SCH ×2 (08:04→17:00)
[2019-10-03] MEDS: Z GUARD REMEDY 2 OZ OINT TP PRN (08:06)
[2019-10-03] MEDS: PANTOPRAZOLE 40 MG VIAL IV SCH ×2 (08:06→16:13)
[2019-10-03] MEDS: HYDROGEL DRESSING 90 GM TUBE TP SCH (08:06)
[2019-10-03] MEDS: METOPROLOL SUCCINATE 50 MG TAB.SR.24H PO SCH (08:07)
[2019-10-03] MEDS: NEPRO 1,000 ML BOTTLE GT PRN (08:07)
[2019-10-03] MEDS: CLOTRIMAZOLE 1% 15 GM TUBE TP SCH ×3 (08:13→16:13)
[2019-10-03] MEDS: NEOMY SULF/BACITRAC ZN/POLY 15 GM TUBE TP SCH (08:13)
[2019-10-03] MEDS: VALPROATE 500 MG in IV NS 0.9% 100 ML IV SCH ×2 (09:23→21:00)
--- NOTE | 2019-10-03 10:00 | NUR ---
ICU/RN: Antonio Coleman CAPTION WRITER at bedside; updated on pt status. Lengthy dw Rhina regarding goals of care. Pt now DNR.
--- NOTE | 2019-10-03 14:45 | NUR ---
ICU/RN: Wound care, bed bath rendered. Pt tolerated well. Soft BM x1 with streaks of red blood noted.
[2019-10-03] MEDS: INSULIN REGULAR, HUMAN 100 UNIT/ML 3 ML VIAL SQ PRN (17:01)
--- NOTE | 2019-10-03 18:15 | NUR ---
ICU/RN: at bedside; updated on pt status, educated on plan of care.
--- NOTE | 2019-10-03 18:24 | NUR ---
RT END OF THE SHIFT REPORT, PT. 74 Y OLD MALE REC. @ 0700 AM ORALLY INTUBATED ETT # 8.0 @ 24 CM LIP LINE ON VENT WITH NOTED SETTINGS, ALARMS ARE SET AND FUNCTIONAL, B/S RHONCHI BILATERALLY AND SUX'D FOR MOD. AMT YELLOW SECRETIONS, MECHANICAL ENGINEERING ADVISOR DONE, HME CHANGED. EQUAL CHEST RISE NOTED. NO CHANGES WITH WITH VENT. VENT PLUGGED INTO RED OUT LET. AMBU BAG AT THE BEDSIDE. REPORT WILL BE COTA TO PM SHIFT. Addendum: 10/03/19 at 1827 by TATIANNA BELL RT Amended: Links added.
--- NOTE | 2019-10-03 18:55 | NUR ---
ICU/RN: Tylenol administered for mild pain; pt noted with facial grimacing, crying.
--- NOTE | 2019-10-03 19:15 | NUR ---
ICU/RN: Bedside report given to DON Xavier for BROCK.
--- NOTE | 2019-10-03 19:15 | NUR ---
ICU/RN OPENING NOTE RECEIVED PATIENT INTUBATED ON VENTILATOR NOT SEDATED NO RESPONSE TO PAIN STIMULI. NO DISTRESS NOTED AND NO SIGNS OF SOB. RESPIRATIONS EVEN AND UNLABORED, SPO2 AT 100% VIA MECHANICAL VENT SETTINGS ORDERED. ETT 03/[address] SR 90'S ON BEDSIDE MONITOR. NGT PATENT AND INTACT WITH NEPRO RUNNING AT 35CC/HR. RIGHT FEMORAL TRIPPLE LUMEN CATH PATENT WITH TK0 RUNNING AT 10CC/HR. ALL NEED ATTENDED WILL CONTINUE TO MONITOR PATIENT FOR BROCK.
[2019-10-03] MEDS: ATORVASTATIN 10 MG TABLET PO SCH (21:00)
[2019-10-04] VITALS (24 sets, daily range): BP systolic 98–154; BP diastolic 51–104
[2019-10-04 05:08] LABS: IRON, SERUM 24 ug/dl (50-175); TOTAL IRON BINDING CAPACITY 74 ug/dl (250-450)
[2019-10-04] MEDS: VANCOMYCIN HCL 125 MG/2.5 ML ORAL.SUSP PO SCH ×3 (05:22→18:26)
[2019-10-04] MEDS: PIPERACILLIN /TAZOBACTAM 2.25 G in IV D5W 50 ML IV SCH ×3 (05:23→21:48)
[2019-10-04 05:43] LABS: FERRITIN 1865 ng/mL (8-388)
[2019-10-04] MEDS: BLOOD SUGAR DIAGNOSTIC 1 EACH STRIP IN SCH ×3 (06:22→17:43)
--- NOTE | 2019-10-04 07:16 | NUR ---
ICU/RN CLOSING NOTE PATIENT CONTINUES ON VENTILATOR TOLERATING WELL. ETT PLACEMENT 03/25. VENT SETTING ORDERED. NGT FEEDING OF NEPRO TOLERATING AT 35ML/HR WITH NO RESIDUAL. VITALS BEING MONITORED AT BEDSIDE. ALL VITALS WNL. NO SIGN OF ANY DISTRESS. ENDORSED PATIENT TO MORNING SHIFT NURSE FOR BROCK.
--- NOTE | 2019-10-04 07:30 | NUR ---
ICU/RN: Pt received, breathing even and unlabored, no distress noted; tolerating TF with no residuals. Airway cleared of secretions. Generalized edema noted. Will cont to monitor pt.
[2019-10-04 07:48] LABS: BASOPHILS % (AUTO) 0.3 % (0.0-2.0); EOSINOPHILS % (AUTO) 1.3 % (0.0-6.0); HEMATOCRIT 24 % (39-51); HEMOGLOBIN 7.7 g/dL (13.5-17.5); LYMPHOCYTES # (AUTO) 0.6 /CMM (0.8-4.8); LYMPHOCYTES % (AUTO) 12.4 % (20.0-44.0); MEAN CORPUSCULAR HGB CONC 33 g/dl (31.0-36.0); MEAN CORPUSCULAR VOLUME 93 fL (80-96); MONOCYTES # (AUTO) 0.4 /CMM (0.1-1.30); MONOCYTES % (AUTO) 8.1 % (2.0-12.0); NEUTROPHILS # (AUTO) 3.7 /CMM (1.8-8.9); NEUTROPHILS % (AUTO) 77.9 % (43.0-81.0); PLATELET COUNT (AUTO) 114 /CMM (150-450); RED BLOOD CELL COUNT(AUTO) 2.53 MIL/uL (4.5-6.0); WHITE BLOOD COUNT (AUTO) 4.7 K/uL (4.3-11.0)
[2019-10-04 08:03] LABS: CALCIUM, SERUM 6.1 mg/dL (8.5-10.1); CARBON DIOXIDE 23 mmol/L (21-32); CHLORIDE 101 mmol/L (98-107); CREATININE 4.6 mg/dL (0.6-1.3); GLUCOSE 106 mg/dL (74-106); POTASSIUM 4.1 mmol/L (3.5-5.1); SODIUM SERUM 137 mmol/L (136-145); UREA NITROGEN, BLOOD 37 mg/dL (7-18)
[2019-10-04] MEDS: SEVELAMER CARBONATE 0.8 GM POWD.PACK GT SCH ×3 (08:12→17:43)
[2019-10-04] MEDS: MEGESTROL ACETATE 40 MG TABLET PO SCH ×2 (08:13→17:43)
[2019-10-04] MEDS: PANTOPRAZOLE 40 MG VIAL IV SCH ×2 (08:13→17:43)
[2019-10-04] MEDS: LEVOTHYROXINE SODIUM 75 MCG TABLET PO SCH (08:13)
[2019-10-04] MEDS: HYDROCORTISONE 20 MG TABLET PO SCH ×2 (08:13→17:43)
[2019-10-04] MEDS: METOPROLOL SUCCINATE 50 MG TAB.SR.24H PO SCH (08:13)
[2019-10-04] MEDS: Z GUARD REMEDY 2 OZ OINT TP PRN (08:14)
[2019-10-04] MEDS: HYDROGEL DRESSING 90 GM TUBE TP SCH (08:14)
[2019-10-04] MEDS: NEOMY SULF/BACITRAC ZN/POLY 15 GM TUBE TP SCH (08:15)
--- NOTE | 2019-10-04 08:30 | NUR ---
ICU/RN: Antonio Coleman, Dylon rounds; updated on pt status. Labs reviewed. Per RADIOLOGY RECEPTIONIST "I spoke with the family they do not want anything aggressive, however they are not ready to take the next step." Pt remains a DNR. No new orders.
[2019-10-04] MEDS: VALPROATE 500 MG in IV NS 0.9% 100 ML IV SCH ×2 (09:25→20:19)
[2019-10-04] MEDS: CLOTRIMAZOLE 1% 15 GM TUBE TP SCH ×3 (09:26→17:44)
--- NOTE | 2019-10-04 15:30 | NUR ---
ICU/RN: Pt off HD; 500cc out per DON Schmidt.
--- NOTE | 2019-10-04 17:52 | NUR ---
RT END OF THE SHIFT REPORT, PT. 74 Y OLD MALE REC. @ 0700 AM ORALLY INTUBATED ETT # 8.0 @ 24 CM LIP LINE ON VENT WITH NOTED SETTINGS, ALARMS ARE SET AND FUNCTIONAL, B/S RHONCHI BILATERALLY AND SUX'D FOR MOD. AMT YELLOW SECRETIONS, CONSULTING PSYCHIATRIST DONE, HME CHANGED. EQUAL CHEST RISE NOTED. NO CHANGES T/O DAY. VENT PLUGGED INTO RED OUT LET. AMBU BAG AT THE BEDSIDE. REPORT WILL BE COTA TO PM SHIFT. Addendum: 10/04/19 at 1753 by TATIANNA BELL RT Amended: Links added.
--- NOTE | 2019-10-04 18:53 | NUR ---
ICU/RN: Pt resting in bed, no distress, breathing even and unlabored. Normothermic, will continue to monitor.
--- NOTE | 2019-10-04 19:00 | NUR ---
Patient continues on C-DIFF isolation. Obtunded and on mechanical vent via ETT 03/25 at the lip and setting at AC 24, TV 450, FIO2 30%, PEEP 0. Telemetry shows SR with first degree av block. Left nare nasogastric tube is clean dry intact and patent with free water flush and Nepro @ 35ml/hr with 0 residuals noted. Right groin TLC PICC line is clean dry intact and patent with NS @ TKO. Bed in low lock position with rials up x 2 call light within reach and all safety measures ensured and carried out.
--- NOTE | 2019-10-04 19:23 | NUR ---
RT NOTE: PT RECEIVED ORALLY INTUBATED WITH 8.0 ETT @ 24CM AT THE LIP ON [facility] VENT ON NOTED SETTINGS. NO SIGNS OF RESP DISTRESS AT THIS MOMENT. AIRWAY PATENT AND SECURED. CAR HOSTLER DONE. PT SUCTIONED PRN. ALARMS SET AND AUDIBLE. AMBU BAG AT BEDSIDE. VENT PLUGGED INTO RED OUTLET. WILL CONT TO MONITOR. Addendum: 10/04/19 at 6 by AI CONNOR RT Amended: Links added.
[2019-10-04] MEDS: ATORVASTATIN 10 MG TABLET PO SCH (21:48)
[2019-10-05] VITALS (35 sets, daily range): BP systolic 112–170; BP diastolic 66–106
[2019-10-05] MEDS: BLOOD SUGAR DIAGNOSTIC 1 EACH STRIP IN SCH ×4 (00:52→17:04)
[2019-10-05] MEDS: VANCOMYCIN HCL 125 MG/2.5 ML ORAL.SUSP PO SCH ×4 (00:53→17:04)
[2019-10-05] MEDS: PIPERACILLIN /TAZOBACTAM 2.25 G in IV D5W 50 ML IV SCH ×2 (05:12→13:31)
--- NOTE | 2019-10-05 07:40 | NUR ---
ICU/RN PT IS INTUBATED ON THE VENT AC MODE.FIO2-30%.SAT O2-100%.V/S STABLE ,AFEBRILE.NO PAIN REPORTED AT THIS TIME.PT IS RESPONSIVE ON PAIN STIMULATION.RIGHT FEMORAL TLC.HAS NG TUBE INFUSING WITH NEPRO AT 35 ML/HR.NO RESIDUAL.ANURIC ,ON HD. HD CATH- RIGHT CHEST.GENERALIZED EDEMA PRESENT. WOUND ON THE LOWER BACK COWERED WITH MEPILEX SUCTION PROVIDED.REPOSITION FOR COMFORT..
[2019-10-05 08:50] LABS: ABG BASE EXCESS 1.2 mmol/L; ABG OXYGEN SATURATION 97.3 % (92.0-98.5); ABG PCO2 36.6 mmHg (35.0-45.0); ABG PH 7.453 (7.350-7.450); ABG PO2 105.4 mmHg (75.0-100.0); AaDO2 65.5 mmHg; COHb 0.4 % (0.5-1.5); MetHb 0.5 % (0.0-1.5); O2Hb 96.4 % (94.0-97.0); PEEP,BG 0 cm H2O; SITE, ABG Right Radial; VT, ABG 450 mL
--- NOTE | 2019-10-05 09:15 | NUR ---
ICU/RN DUE MEDS ARE GIVEN ORDERED.
[2019-10-05] MEDS: MEGESTROL ACETATE 40 MG TABLET PO SCH ×2 (09:26→16:55)
[2019-10-05] MEDS: PANTOPRAZOLE 40 MG VIAL IV SCH ×2 (09:26→16:55)
[2019-10-05] MEDS: HYDROCORTISONE 20 MG TABLET PO SCH ×2 (09:26→17:04)
[2019-10-05] MEDS: METOPROLOL SUCCINATE 50 MG TAB.SR.24H PO SCH (09:27)
[2019-10-05] MEDS: HYDROGEL DRESSING 90 GM TUBE TP SCH (09:27)
[2019-10-05] MEDS: NEOMY SULF/BACITRAC ZN/POLY 15 GM TUBE TP SCH (09:27)
[2019-10-05] MEDS: CLOTRIMAZOLE 1% 15 GM TUBE TP SCH ×3 (09:28→16:56)
[2019-10-05] MEDS: LEVOTHYROXINE SODIUM 75 MCG TABLET PO SCH (09:39)
[2019-10-05] MEDS: SEVELAMER CARBONATE 0.8 GM POWD.PACK GT SCH ×3 (09:39→16:56)
[2019-10-05] MEDS: VALPROATE 500 MG in IV NS 0.9% 100 ML IV SCH ×2 (10:52→21:33)
[2019-10-05] MEDS: NEPRO 1,000 ML BOTTLE GT PRN (17:11)
--- NOTE | 2019-10-05 19:25 | NUR ---
ICU/RN notes Patient received, Obtunded, Eyes closed, A/O x0. orally intubated with 8 @ 24CM lip line. In no acute distress. breathing even and unlabored with prescribed vent settings. No SOB. No S/S of pain. No facial Grimacing. Sinus rhythm on the monitor. Right femoral TLC in place, with NS TKO. RCW HD cath intact. LT nare NGT in place, patent, connected to feeding as ordered. Tolerating well. No residual. Safety maintained, bed at the lowest, locked position. Call light within reach. Isolation precautions maintained. Call light within reach. Will Continue to monitor as per plan of care.
--- NOTE | 2019-10-05 19:48 | NUR ---
RECEIVED PT ORALLY INTUBATED WITH 8.0 SECURED @ 24 CM LIP LINE ON VENT WITH NOTED SETTINGS . NO RESP DISTRESS NOTED. PT TOLERATING VENT SETTINGS. PT IS OBTUNDED. CUFF BINDING END STITCHER, SX'D DONE PRN. VENT ALARMS SET AND AUDIBLE. AMBU BAG AT BEDSIDE. VENT PLUGGED INTO RED OUTLET. WILL CONTINUE TO MONITOR THE PT T/O SHIFT.
[2019-10-05] MEDS: ATORVASTATIN 10 MG TABLET PO SCH (21:33)
[2019-10-06] VITALS (28 sets, daily range): BP systolic 88–170; BP diastolic 53–85
[2019-10-06] MEDS: VANCOMYCIN HCL 125 MG/2.5 ML ORAL.SUSP PO SCH ×4 (00:39→17:23)
[2019-10-06] MEDS: BLOOD SUGAR DIAGNOSTIC 1 EACH STRIP IN SCH ×4 (00:40→17:31)
[2019-10-06] MEDS: INSULIN REGULAR, HUMAN 100 UNIT/ML 3 ML VIAL SQ PRN (00:40)
[2019-10-06] MEDS: hydrALAZINE HCL IV 20 MG VIAL IV PRN ×2 (05:23→21:05)
--- NOTE | 2019-10-06 06:52 | NUR ---
ICU/RN Exit notes Patient remained in stable condition, No Significant change in condition over night. Obtunded, Eyes closed, A/O x0. orally intubated with 8 @ 24CM lip line. In no acute distress. breathing even and unlabored with prescribed vent settings. No SOB. No S/S of pain. No facial Grimacing. Sinus rhythm on the monitor. Right femoral TLC in place, with NS TKO. RCW HD cath intact. LT nare NGT in place, patent, connected to feeding as ordered. Tolerating well. No residual. Due meds given as ordered, Treatments rendered. tolerated well. Safety maintained, bed at the lowest, locked position. Call light within reach. Isolation precautions maintained. Needs Attendant. Call light within reach. Will Endorse to AM shift nurse for BROCK.
--- NOTE | 2019-10-06 07:15 | NUR ---
RN INITIAL NOTES RECEIVED PT INTUBATED, ON VENT. NO RESPIRATORY DISTRESS NOTED. NO SOB NOTED. NO SIGNS OF PAIN NOTED. LEFT NG TUBE IN PLACE. TOLERATING GTF WELL. NO RESIDUAL NOTED. RIGHT CHEST WALL HD CATH AND RIGHT FEMORAL TLC IN PLACE. PT COMFORTABLE. CLEAN AND DRY. REPOSITIONED. BLE ELEVATED. WILL CONTINUE TO MONITOR
[2019-10-06] MEDS: VALPROATE 500 MG in IV NS 0.9% 100 ML IV SCH ×2 (08:47→21:07)
[2019-10-06] MEDS: HYDROCORTISONE 20 MG TABLET PO SCH ×2 (08:47→17:23)
[2019-10-06] MEDS: MEGESTROL ACETATE 40 MG TABLET PO SCH ×2 (08:47→17:23)
[2019-10-06] MEDS: PANTOPRAZOLE 40 MG VIAL IV SCH ×2 (08:47→17:23)
[2019-10-06] MEDS: METOPROLOL SUCCINATE 50 MG TAB.SR.24H PO SCH (08:47)
[2019-10-06] MEDS: SEVELAMER CARBONATE 0.8 GM POWD.PACK GT SCH ×3 (08:47→17:23)
[2019-10-06] MEDS: CLOTRIMAZOLE 1% 15 GM TUBE TP SCH ×3 (08:48→17:31)
[2019-10-06] MEDS: LEVOTHYROXINE SODIUM 75 MCG TABLET PO SCH (08:48)
[2019-10-06] MEDS: HYDROGEL DRESSING 90 GM TUBE TP SCH (08:48)
[2019-10-06] MEDS: NEOMY SULF/BACITRAC ZN/POLY 15 GM TUBE TP SCH (08:49)
--- NOTE | 2019-10-06 09:00 | NUR ---
RN NOTES 0800 SEEN AND EXAMINED BY DR BAILEY. PT REMAINS INTUBATED, ON VENT. NO RESPIRATORY DISTRESS NOTED. NO SOB NOTED. TOLERATING GTF WELL. KEPT COMFORTABLE. 0900 SEEN AND EXAMINED BY DR LOPEZ. AWARE OF CURRENT LAB VALUES. STILL INTUBATED, AWAITING FOR 'S DECISION REGARDING PLAN OF CARE
[2019-10-06] MEDS: ALBUMIN 25% 25 GM in PREMIX 1 EA IV PRN (13:20)
[2019-10-06] MEDS: NEPRO 1,000 ML BOTTLE GT PRN ×2 (14:25→16:00)
[2019-10-06 16:29] LABS: BASOPHILS % (AUTO) 0.3 % (0.0-2.0); EOSINOPHILS % (AUTO) 0.3 % (0.0-6.0); HEMATOCRIT 24 % (39-51); HEMOGLOBIN 7.9 g/dL (13.5-17.5); LYMPHOCYTES # (AUTO) 0.4 /CMM (0.8-4.8); LYMPHOCYTES % (AUTO) 6.3 % (20.0-44.0); MEAN CORPUSCULAR HGB CONC 33 g/dl (31.0-36.0); MEAN CORPUSCULAR VOLUME 94 fL (80-96); MONOCYTES # (AUTO) 0.4 /CMM (0.1-1.30); MONOCYTES % (AUTO) 5.3 % (2.0-12.0); NEUTROPHILS # (AUTO) 6.3 /CMM (1.8-8.9); NEUTROPHILS % (AUTO) 87.8 % (43.0-81.0); PLATELET COUNT (AUTO) 114 /CMM (150-450); RED BLOOD CELL COUNT(AUTO) 2.56 MIL/uL (4.5-6.0); WHITE BLOOD COUNT (AUTO) 7.1 K/uL (4.3-11.0)
[2019-10-06 16:56] LABS: ALANINE AMINOTRANSFERASE 6 U/L (12-78); ALBUMIN 2.3 g/dL (3.4-5.0); ALKALINE PHOSPHATASE 49 U/L (46-116); ASPARTATE AMINOTRANSFERASE 51 U/L (15-37); BILIRUBIN,TOTAL 0.3 mg/dL (0.2-1.0); CALCIUM, SERUM 7.1 mg/dL (8.5-10.1); CARBON DIOXIDE 28 mmol/L (21-32); CHLORIDE 101 mmol/L (98-107); CREATININE 3.4 mg/dL (0.6-1.3); GLUCOSE 124 mg/dL (74-106); POTASSIUM 4.1 mmol/L (3.5-5.1); SODIUM SERUM 139 mmol/L (136-145); TOTAL PROTEIN, SERUM 5.8 g/dL (6.4-8.2); UREA NITROGEN, BLOOD 25 mg/dL (7-18)
--- NOTE | 2019-10-06 18:29 | NUR ---
RN CLOSING NOTES NO SIGNIFICANT CHANGE. REMAINS INTUBATED, ON VENT. NO RESPIRATORY DISTRESS NOTED. NO SOB NOTED. NO SIGNS OF PAIN NOTED. TOLERATING GTF WELL. KEPT CLEAN AND DRY. TX PROVIDED ORDERED. KEPT COMFORTABLE. WILL ENDORSE FOR CONTINUITY OF CARE.
--- NOTE | 2019-10-06 19:57 | NUR ---
RECEIVED PT ORALLY INTUBATED WITH 8.0 SECURED @ 24 CM LIP LINE ON VENT WITH NOTED SETTINGS . NO RESP DISTRESS NOTED. PT TOLERATING VENT SETTINGS. PT IS OBTUNDED. CUFF RESPIRATORY THERAPIST, SX'D DONE PRN. VENT ALARMS SET AND AUDIBLE. AMBU BAG AT BEDSIDE. VENT PLUGGED INTO RED OUTLET. WILL CONTINUE TO MONITOR THE PT T/O SHIFT.
[2019-10-06] MEDS: ATORVASTATIN 10 MG TABLET PO SCH (21:06)
[2019-10-07] VITALS (30 sets, daily range): BP systolic 90–168; BP diastolic 48–80
[2019-10-07] MEDS: VANCOMYCIN HCL 125 MG/2.5 ML ORAL.SUSP PO SCH ×2 (00:40→06:16)
[2019-10-07] MEDS: BLOOD SUGAR DIAGNOSTIC 1 EACH STRIP IN SCH ×4 (00:41→17:21)
[2019-10-07] MEDS ORDERED: hydrALAZINE HCL IV 20 MG VIAL ONE (04:14)
[2019-10-07] MEDS: hydrALAZINE HCL IV 20 MG VIAL IV PRN ×2 (04:20→20:04)
[2019-10-07] MEDS: PANTOPRAZOLE 40 MG VIAL IV SCH ×2 (08:10→17:09)
[2019-10-07] MEDS: LEVOTHYROXINE SODIUM 75 MCG TABLET PO SCH (08:11)
[2019-10-07] MEDS: SEVELAMER CARBONATE 0.8 GM POWD.PACK GT SCH ×3 (08:11→17:09)
[2019-10-07] MEDS: HYDROCORTISONE 20 MG TABLET PO SCH (08:11)
[2019-10-07] MEDS: HYDROGEL DRESSING 90 GM TUBE TP SCH (08:12)
[2019-10-07] MEDS: METOPROLOL SUCCINATE 50 MG TAB.SR.24H PO SCH (08:12)
[2019-10-07] MEDS: NEOMY SULF/BACITRAC ZN/POLY 15 GM TUBE TP SCH (08:13)
[2019-10-07] MEDS: CLOTRIMAZOLE 1% 15 GM TUBE TP SCH ×3 (08:13→17:10)
--- NOTE | 2019-10-07 09:00 | NUR ---
RN NOTES SEEN AND EXAMINED BY DR BAILEY. PT STILL INTUBATED, ON VENT. NO RESPIRATORY DISTRESS NOTED. NO SOB NOTED. AWARE OF LATEST LAB VALUES. WILL CLOSELY MONITOR
[2019-10-07] MEDS ORDERED: MAG HYDROX/AL HYDROX/SIMETH 30 ML UDC GT PRN (09:08)
[2019-10-07] MEDS ORDERED: MAGNESIUM HYDROXIDE 30 ML UDC GT PRN (09:08)
[2019-10-07] MEDS ORDERED: HYDROCODONE/APAP 5/325MG 1 EACH TABLET GT PRN (09:09)
[2019-10-07] MEDS ORDERED: NATEGLINIDE 60 MG TABLET GT PRN (09:09)
[2019-10-07] MEDS: VALPROATE 500 MG in IV NS 0.9% 100 ML IV SCH (09:33)
[2019-10-07] MEDS: VANCOMYCIN HCL 125 MG/2.5 ML ORAL.SUSP GT SCH ×2 (11:55→17:09)
[2019-10-07] MEDS: NEPRO 1,000 ML BOTTLE GT PRN (15:59)
[2019-10-07] MEDS: HYDROCORTISONE 20 MG TABLET GT SCH (17:09)
[2019-10-07] MEDS: INSULIN REGULAR, HUMAN 100 UNIT/ML 3 ML VIAL SQ PRN (17:22)
--- NOTE | 2019-10-07 19:20 | NUR ---
ICU/RN notes Patient received, Obtunded, Eyes closed, A/O x0. orally intubated with 8 @ 24CM lip line. In no acute distress. breathing even and unlabored with prescribed vent settings. No SOB. No S/S of pain. No facial Grimacing. Right femoral TLC in place, with NS TKO. RCW HD cath intact. LT nare NGT in place, patent, connected to feeding as ordered. Tolerating well. No residual. Safety maintained, bed at the lowest, locked position. Call light within reach. Isolation precautions maintained. Call light within reach. Will Continue to monitor as per plan of care.
--- NOTE | 2019-10-07 19:42 | NUR ---
PT RECEIVED ORALLY INTUBATED ON [facility] VENT W/ NOTED SETTING. ETT 8.0 @ 24 CM PATENT AND SECURE VIA ANCHOR FAST. PT TOLERATING VENT SETTINGS. NO SOB OR DISTRESS NOTED. VENT ALARMS SET AND AUDIBLE. AMBU BAG AT BEDSIDE. VENT PLUGGED INTO RED OUTLET. WILL CONTINUE TO MONITOR. Addendum: 10/08/19 at 0450 by SALMA GREENBERG RT Amended: Links added.
[2019-10-07] MEDS: METOPROLOL TARTRATE 50 MG TABLET GT SCH (21:17)
[2019-10-07] MEDS: VALPROIC ACID 250 MG/5 ML UDC GT SCH (21:17)
[2019-10-08] VITALS (25 sets, daily range): BP systolic 101–161; BP diastolic 47–86
[2019-10-08] MEDS: BLOOD SUGAR DIAGNOSTIC 1 EACH STRIP IN SCH ×5 (00:35→23:26)
[2019-10-08] MEDS: VANCOMYCIN HCL 125 MG/2.5 ML ORAL.SUSP GT SCH ×5 (00:35→23:26)
--- NOTE | 2019-10-08 07:29 | NUR ---
CREDIT UNDERWRITER NOTE RECEIVED PATIENT IN BED WITH ETT TO VENT SETTING ORDERED, OBTUNDED, ON TELE MONITOR SR HR 73 , WITH NG TUBE IN PLACE, ON FEEDING ORDERED TOLERATED WELL KEEP HOB ELEVATED AT ALL TIME , RT FEMORAL TLC IN PLACE TKO , BED IN LOWEST AND LOCKED POSITION , WITH GENERAL EDEMA NOTED , BED IN LOWEST AND LOCKED POSITION, WILL CONT TO MONITOR CLOSELY
[2019-10-08 07:30] LABS: BASOPHILS % (AUTO) 0.2 % (0.0-2.0); EOSINOPHILS % (AUTO) 0.5 % (0.0-6.0); HEMATOCRIT 27 % (39-51); HEMOGLOBIN 8.9 g/dL (13.5-17.5); LYMPHOCYTES # (AUTO) 0.6 /CMM (0.8-4.8); LYMPHOCYTES % (AUTO) 6.5 % (20.0-44.0); MEAN CORPUSCULAR HGB CONC 33 g/dl (31.0-36.0); MEAN CORPUSCULAR VOLUME 94 fL (80-96); MONOCYTES # (AUTO) 0.8 /CMM (0.1-1.30); MONOCYTES % (AUTO) 8.4 % (2.0-12.0); NEUTROPHILS % (AUTO) 84.4 % (43.0-81.0); PLATELET COUNT (AUTO) 144 /CMM (150-450); RED BLOOD CELL COUNT(AUTO) 2.84 MIL/uL (4.5-6.0); WHITE BLOOD COUNT (AUTO) 9.5 K/uL (4.3-11.0)
[2019-10-08 07:53] LABS: ALANINE AMINOTRANSFERASE 8 U/L (12-78); ALBUMIN 1.9 g/dL (3.4-5.0); ALKALINE PHOSPHATASE 68 U/L (46-116); ASPARTATE AMINOTRANSFERASE 52 U/L (15-37); BILIRUBIN,TOTAL 0.2 mg/dL (0.2-1.0); CALCIUM, SERUM 6.8 mg/dL (8.5-10.1); CARBON DIOXIDE 28 mmol/L (21-32); CHLORIDE 99 mmol/L (98-107); CREATININE 4.4 mg/dL (0.6-1.3); GLUCOSE 122 mg/dL (74-106); MAGNESIUM 2.3 mg/dL (1.8-2.4); PHOSPHORUS 2.5 mg/dL (2.5-4.9); POTASSIUM 4.5 mmol/L (3.5-5.1); SODIUM SERUM 135 mmol/L (136-145); TOTAL PROTEIN, SERUM 5.7 g/dL (6.4-8.2); UREA NITROGEN, BLOOD 39 mg/dL (7-18)
[2019-10-08] MEDS: VALPROIC ACID 250 MG/5 ML UDC GT SCH ×2 (08:11→21:21)
[2019-10-08] MEDS: SEVELAMER CARBONATE 0.8 GM POWD.PACK GT SCH ×3 (08:11→17:01)
[2019-10-08] MEDS: LEVOTHYROXINE SODIUM 75 MCG TABLET GT SCH (08:11)
[2019-10-08] MEDS: HYDROCORTISONE 20 MG TABLET GT SCH ×2 (08:11→17:02)
[2019-10-08] MEDS: PANTOPRAZOLE 40 MG VIAL IV SCH ×2 (08:11→17:01)
[2019-10-08] MEDS: NEOMY SULF/BACITRAC ZN/POLY 15 GM TUBE TP SCH (08:13)
[2019-10-08] MEDS: CLOTRIMAZOLE 1% 15 GM TUBE TP SCH ×3 (08:13→17:01)
[2019-10-08] MEDS: HYDROGEL DRESSING 90 GM TUBE TP SCH (08:14)
[2019-10-08] MEDS: METOPROLOL TARTRATE 50 MG TABLET GT SCH ×2 (09:00→21:21)
--- NOTE | 2019-10-08 09:30 | NUR ---
WOOD TURNER NOTE DR BAILEY NOTIFIED THAT DURING REPOSITION AND CLEANING PATIENT HAS SKIN TEAR ON SCROTUM DESPITE GENTLE CARE, PATIENT AT RISK FOR SKIN BREAK DOWN DUE SCROTUM IS VERY SWOLLEN ,SKIN IS TENDER AND FRAGILE TO TOUCH AND TO HIS DX METASTATIC THYROID CA ,ANEMIA,ON HD ACUTE HYPOXIC REPERTORY FAILURE, ON VENT SETTING , ON N GTUBE FEEDING AND HD ,WITH POOR PROGNOSIS PER NOTE,WILL CONT TO TURN REPOSITION Q2 HOUR, OFF PRESSURE ON AFFECTED AREA, KEEP ELEVATED TOLERATED, NEW ORDER FOR TX GIVEN BY DR BAILEY WILL F\U
--- NOTE | 2019-10-08 09:30 | NUR ---
ANGLE ROLL OPERATOR NOTE DURING REPOSITION NOTED ,PATIENT HAS SKIN TEAR ON SCROTUM, KEEP AFFECTED CLEAN DRY WOUND CARE CONSULT ORDERED ,
--- NOTE | 2019-10-08 11:12 | NUR ---
MANAGEMENT CONSULTING NOTE NOTE DR LIRA OPEN HEARTH STOCKYARD SUPERVISOR AT BEDSIDE AWARE THAT HAS PINK RED TINGED SECRETION WHEN SUCTION, WILL MONITOR
[2019-10-08] MEDS: INSULIN REGULAR, HUMAN 100 UNIT/ML 3 ML VIAL SQ PRN ×2 (11:55→23:28)
--- NOTE | 2019-10-08 12:30 | NUR ---
PRODUCT SUPPORT ANALYST NOTE ON HD AT THIS TIME,FAMILY AT BEDSIDE, NOTIFIED THAT PATIENT HAS SKIN TEAR ON SCROTUM AWARE THAT SCROTUM IS SWOLLEN AND FRAGILE SKIN , AT RISK FOR SKIN BREAKDOWN, ALL NEEDS ATTENDED WILL CONT TO MONITOR CLOSELY. TURN REPOSITION Q2 HOUR ,GENTLE CARE AND KEEP OFF PRESSURE AND KEEP ELEVATED TOLERATED
--- NOTE | 2019-10-08 15:00 | NUR ---
CASING TRIMMER NOTE CONT ON N GTUBE FEEDING ORDERED, TURN REPOSITION Q2 HOUR , WILL CONT TO MONITOR
--- NOTE | 2019-10-08 19:00 | NUR ---
TAPE RECORDER MECHANIC NOTE CONT ON VENT SETTING ,STILL OBTUNDED NOT OPEN HIS BOTH EYE ON N GTUBE FEEDING ORDERED ALL NEEDS ATTENDED, TURN REPOSITION Q2 HOUR ,
--- NOTE | 2019-10-08 19:20 | NUR ---
DRAPERY HAND NOTE, RECEIVED PATIENT IN BED WITH ETT TO VENT SETTING ORDERED, OBTUNDED, ON MECHANICAL VENTILATOR, TOLERATED SETTINGS WELL, WITH 100% O2 SAT LEVEL, NOTED PATIENT VERY EDEMATOUS, S/P HEMODIALYSIS TODAY PER PRIOR NURSE 1L OUT, ON TELE MONITOR SR HR 80S AT THIS TIME, WITH NG TUBE IN LEFT NARE , ON NEPRO AT 40ML/HR TOLERATED WELL, NO RESIDUAL NOTED, KEEP HOB ELEVATED AT ALL TIME, RT FEMORAL TLC IN PLACE TKO, BED LOCKED AND LOWEST POSITION, WILL CONT TO MONITOR CLOSELY
--- NOTE | 2019-10-08 20:09 | NUR ---
RT NOTES PT RECEIVED ORALLY INTUBATED ON [facility] VENT ON CHARTED SETTINGS. NO SIGNS OF RESP DISTRESS/SOB NOTED. AIRWAY PATENT AND SECURED. WREATH AND GARLAND MAKER HAND DONE. PT SUCTIONED. ALARMS SET AND AUDIBLE. AMBUBAG AT BEDSIDE. VENT CONNECTED TO RED OUTLET. WILL CONTINUE TO MONITOR. Addendum: 10/08/19 at 2123 by MARILIN HENRY RT Amended: Links added.
[2019-10-09] VITALS (25 sets, daily range): BP systolic 92–158; BP diastolic 47–80
[2019-10-09] MEDS: NEPRO 1,000 ML BOTTLE GT PRN (01:23)
[2019-10-09] MEDS: VANCOMYCIN HCL 125 MG/2.5 ML ORAL.SUSP GT SCH ×3 (05:32→17:11)
[2019-10-09] MEDS: BLOOD SUGAR DIAGNOSTIC 1 EACH STRIP IN SCH ×3 (05:41→17:12)
[2019-10-09] MEDS: DEXTROSE 50%-WATER 50 ML DISP.SYRIN IV PRN (05:42)
[2019-10-09 05:52] LABS: ALANINE AMINOTRANSFERASE 7 U/L (12-78); ALBUMIN 1.9 g/dL (3.4-5.0); ALKALINE PHOSPHATASE 75 U/L (46-116); ASPARTATE AMINOTRANSFERASE 65 U/L (15-37); BILIRUBIN,TOTAL 0.3 mg/dL (0.2-1.0); CALCIUM, SERUM 7.1 mg/dL (8.5-10.1); CARBON DIOXIDE 31 mmol/L (21-32); CHLORIDE 100 mmol/L (98-107); CREATININE 3.7 mg/dL (0.6-1.3); GLUCOSE 72 mg/dL (74-106); MAGNESIUM 2.1 mg/dL (1.8-2.4); PHOSPHORUS 2.2 mg/dL (2.5-4.9); POTASSIUM 4.3 mmol/L (3.5-5.1); SODIUM SERUM 137 mmol/L (136-145); TOTAL PROTEIN, SERUM 5.8 g/dL (6.4-8.2); UREA NITROGEN, BLOOD 33 mg/dL (7-18)
[2019-10-09 05:54] LABS: BASOPHILS % (AUTO) 0.2 % (0.0-2.0); EOSINOPHILS % (AUTO) 0.6 % (0.0-6.0); HEMATOCRIT 26 % (39-51); HEMOGLOBIN 8.6 g/dL (13.5-17.5); LYMPHOCYTES # (AUTO) 0.8 /CMM (0.8-4.8); LYMPHOCYTES % (AUTO) 7.6 % (20.0-44.0); MEAN CORPUSCULAR HGB CONC 33 g/dl (31.0-36.0); MEAN CORPUSCULAR VOLUME 94 fL (80-96); MONOCYTES # (AUTO) 1.1 /CMM (0.1-1.30); MONOCYTES % (AUTO) 9.9 % (2.0-12.0); NEUTROPHILS # (AUTO) 9.1 /CMM (1.8-8.9); NEUTROPHILS % (AUTO) 81.7 % (43.0-81.0); PLATELET COUNT (AUTO) 147 /CMM (150-450); RED BLOOD CELL COUNT(AUTO) 2.79 MIL/uL (4.5-6.0); WHITE BLOOD COUNT (AUTO) 11.1 K/uL (4.3-11.0)
--- NOTE | 2019-10-09 06:25 | NUR ---
RN NOTES, BLOOD SUGAR LEVEL NOTED THIS MORNING 55MG/DL, D5O DEXTROSE ADMINISTERED PROTOCOL, AT THIS TIME, BLOOD SUGAR NOTED 123MG/DL, WILL CONTINUE TO MONITOR, BESIDES THAT NO SIGNIFICANT CHANGE IN CONDITION DURING THE NIGHT, CONT ON VENT TOLERATED CURRENT SETTINGS, NO SOB/ACUTE DISTRESS NOTED, ALL NEEDS PROVIDED, WILL ENDORSE CONTINUITY OF CARE TO ONCOMING NURSE.
--- NOTE | 2019-10-09 07:45 | NUR ---
ICU/RN PT IS INTUBATED ON THE VENT AC MODE.FIO2-30%.SAT O2-100%.V/S STABLE ,AFEBRILE.NO PAIN REPORTED AT THIS TIME.PT IS NOT SEDATED.RESPONSIVE ONLY ON PAIN STIMULATION.SUCTION PROVIDED.PT HAS A LOT OF SECRETION.RIGHT FEMORAL PICC LINE WITH BLOODY DRESSING.DRESSING CHANGED. PT HAS LEFT NARES NG TUBE INFUSING WITH NEPRO.NO RESIDUAL NOTED.WOUND ON THE SCROTUM AND LOWER BACK NOTED.DRESSING CHANGED .BAILEY CARE PROVIDED.PT IS ON HD .ANURIC RIGHT SUBCLAVIAN HD CATH.GENERALIZED EDEMA PRESENT. REPOSITION FOR COMFORT.PT IS DNR WAITING FORE FAMILY DECISION FOR COMFORT CARE.
[2019-10-09] MEDS: PANTOPRAZOLE 40 MG VIAL IV SCH ×2 (08:33→16:42)
[2019-10-09] MEDS: VALPROIC ACID 250 MG/5 ML UDC GT SCH ×2 (08:34→21:32)
[2019-10-09] MEDS: LEVOTHYROXINE SODIUM 75 MCG TABLET GT SCH (08:34)
[2019-10-09] MEDS: SEVELAMER CARBONATE 0.8 GM POWD.PACK GT SCH ×3 (08:34→17:11)
[2019-10-09] MEDS: HYDROCORTISONE 20 MG TABLET GT SCH ×2 (08:34→16:42)
[2019-10-09] MEDS: HYDROGEL DRESSING 90 GM TUBE TP SCH (08:35)
[2019-10-09] MEDS: CLOTRIMAZOLE 1% 15 GM TUBE TP SCH ×3 (08:36→16:42)
[2019-10-09] MEDS: NEOMY SULF/BACITRAC ZN/POLY 15 GM TUBE TP SCH (08:36)
[2019-10-09] MEDS: METOPROLOL TARTRATE 50 MG TABLET GT SCH ×2 (08:42→21:32)
--- NOTE | 2019-10-09 09:15 | NUR ---
ICU/RN DUE MEDS ARE GIVEN ORDERED.
[2019-10-09] MEDS ORDERED: NEUTRA PHOS 1 POWD.PACKET GT ONE (10:30)
--- NOTE | 2019-10-09 17:41 | NUR ---
RT END OF THE SHIFT REPORT, PT. 74 Y OLD MALE REC. @ 0700 AM ORALLY INTUBATED ETT # 8.0 @ 24 CM AT THE LIP LINE ON VENT WITH NOTED SETTINGS, ALARMS ARE SET AND FUNCTIONAL, B/S DIMINISHED BILATERALLY AND SUX'D FOR MOD. AMT YELLOW SECRETIONS, STAFF ASSISTANT DONE, HME CHANGED. EQUAL CHEST RISE NOTED. NO CHANGES ON VENT. T/O DAY VENT PLUGGED INTO RED OUT LET. AMBU BAG AT THE BEDSIDE. REPORT WILL BE COTA TO PM SHIFT. Addendum: 10/09/19 at 1743 by TATIANNA BELL RT Amended: Links added.
--- NOTE | 2019-10-09 19:15 | NUR ---
ICU/RN OPENING NOTES RECEIVED PATIENT INTUBATED ON VENTILATOR, RESPONSIVE TO STIMUL. NO DISTRESS NOTED AND NO SIGN OF SOB. RESPIRATION EVEN AND UNLABORED, SPO2 @ 100% VIA MECHANICAL VENTILATOR SETTINGS ORDERED. ETT 03/[address] SR 70 ON BEDSIDE MONITOR, NGT PATENT AND INTACT WITH NEPRO AT 40ML/HR. TRIPLE LUMEN CATHETER PATENT AND FLUSHING ON S/L. ALL SAFETY PRECAUTIONS APPLIED. WILL CONTINUE TO MONITOR PATIENT THROUGHOUT SHIFT.
[2019-10-10] VITALS (29 sets, daily range): BP systolic 90–172; BP diastolic 44–82
[2019-10-10] MEDS: BLOOD SUGAR DIAGNOSTIC 1 EACH STRIP IN SCH ×5 (00:34→23:57)
[2019-10-10] MEDS: VANCOMYCIN HCL 125 MG/2.5 ML ORAL.SUSP GT SCH ×5 (00:34→23:42)
--- NOTE | 2019-10-10 00:45 | NUR ---
ICU/RN NO INSULIN GIVEN. BS IS 98. WILL CONTINUE TO MONITOR
[2019-10-10 05:13] LABS: CALCIUM, SERUM 7.1 mg/dL (8.5-10.1); CARBON DIOXIDE 28 mmol/L (21-32); CHLORIDE 100 mmol/L (98-107); CREATININE 4.1 mg/dL (0.6-1.3); GLUCOSE 97 mg/dL (74-106); PHOSPHORUS 2.3 mg/dL (2.5-4.9); POTASSIUM 5.1 mmol/L (3.5-5.1); SODIUM SERUM 135 mmol/L (136-145); UREA NITROGEN, BLOOD 39 mg/dL (7-18)
[2019-10-10] MEDS: NEPRO 1,000 ML BOTTLE GT PRN (05:27)
--- NOTE | 2019-10-10 06:37 | NUR ---
WOUND CARE CONSULT WOUND CARE RECEIVED CONSULT FOR SKIN TEAR ON SCROTUM. WOUND CARE WILL DEFER CONSULT AND TREATMENT PLAN TO PLASTIC SURGICAL TEAM WHO ARE CURRENTLY FOLLOWING PT. WILL SEE PRN.
--- NOTE | 2019-10-10 07:18 | NUR ---
ICU/RN CLOSING NOTE PATIENT INTUBATED ON VENTILATOR, RESPONSIVE TO STIMULI. NO DISTRESS NOTED AND NO SIGN OF SOB. RESPIRATION EVEN AND UNLABORED, SPO2 @ 100% VIA MECHANICAL VENTILATOR SETTINGS ORDERED. ETT 03/[address] SR 93 ON BEDSIDE MONITOR, NGT PATENT AND INTACT WITH NEPRO AT 40ML/HR. TRIPLE LUMEN CATHETER PATENT AND FLUSHING ON S/L. ALL SAFETY PRECAUTIONS APPLIED. ENDORSED PATIENT TO MORNING SHIFT NURSE FOR BROCK.
[2019-10-10] MEDS: PANTOPRAZOLE 40 MG VIAL IV SCH ×2 (07:59→17:29)
--- NOTE | 2019-10-10 08:02 | NUR ---
0900 IV protonix and metoprolol not given due to dialysis initiation
[2019-10-10] MEDS: HYDROCORTISONE 20 MG TABLET GT SCH ×2 (08:03→17:29)
[2019-10-10] MEDS: SEVELAMER CARBONATE 0.8 GM POWD.PACK GT SCH ×3 (08:03→17:29)
[2019-10-10] MEDS: VALPROIC ACID 250 MG/5 ML UDC GT SCH ×2 (08:03→20:48)
[2019-10-10] MEDS: LEVOTHYROXINE SODIUM 75 MCG TABLET GT SCH (08:03)
[2019-10-10] MEDS: CLOTRIMAZOLE 1% 15 GM TUBE TP SCH ×3 (08:04→17:00)
[2019-10-10] MEDS: HYDROGEL DRESSING 90 GM TUBE TP SCH (08:04)
[2019-10-10] MEDS: NEOMY SULF/BACITRAC ZN/POLY 15 GM TUBE TP SCH (08:04)
[2019-10-10] MEDS: METOPROLOL TARTRATE 50 MG TABLET GT SCH ×2 (08:04→20:48)
[2019-10-10] MEDS ORDERED: NEUTRA PHOS 1 POWD.PACKET GT ONE (10:30)
[2019-10-10] MEDS ORDERED: NOREPINEPHRINE 32 MG in IV NS 0.9% 218 ML IV PRN (14:30)
--- NOTE | 2019-10-10 15:30 | NUR ---
Call from Dr. Osorio - orders to obtain consent for PEG. If family agrees, patient NPO after midnight + INR lab in am. Call made to Rhina and left message. Also, noted orders from Dr. Melo to obtain consent for trach placement.
--- NOTE | 2019-10-10 18:09 | NUR ---
RT END OF THE SHIFT REPORT, PT. 74 Y OLD MALE REC. @ 0700 AM ORALLY INTUBATED ETT # 8.0 @ 24 CM AT THE LIP LINE ON VENT WITH NOTED SETTINGS, ALARMS ARE SET AND FUNCTIONAL, B/S DIMINISHED BILATERALLY AND SUX'D FOR MOD. AMT YELLOW SECRETIONS, PANAMA HAT SMEARER DONE, HME CHANGED. EQUAL CHEST RISE NOTED. NO CHANGES ON VENT. T/O DAY VENT PLUGGED INTO RED OUT LET. AMBU BAG AT THE BEDSIDE. REPORT WILL BE COTA TO PM SHIFT. Addendum: 10/10/19 at 1810 by TATIANNA BELL RT Amended: Links added.
--- NOTE | 2019-10-10 19:20 | NUR ---
BRUSHING OPERATOR NOTE RECEIVED PATIENT IN BED WITH HOB ELEVATED. OBTUNDED. ON VENT VIA ETT. BREATHING EVEN AND NON LABORED. NO SOB NOTED. NOTED WITH GENERALIZED EDEMA. ON NGT, LEFT NARE, NEPHRO RUNNING AT 40 MLS/HR. IN NO APPARENT DISTRESS NOTED AT THIS TIME. WILL CONTINUE TO MONITOR.
--- NOTE | 2019-10-10 19:20 | NUR ---
HYDRAULIC GOVERNOR ASSEMBLER OPENING NOTE RECEIVED PATIENT IN BED WITH HOB ELEVATED. OBTUNDED;M
--- NOTE | 2019-10-10 19:26 | NUR ---
MOTOR ANALYST SHIFT SUMMARY Patient's Rhina has not called back yet to give consent for PEG + trach. Endorsed to noc DON Sheikh NPO orders after midnight. 1800 blood glucose 94 - OJ given. Bowel movements were formed today.
--- NOTE | 2019-10-10 21:05 | NUR ---
BIOLOGICAL TECHNICAL OFFICER NOTE CALLED AND SPOKE TO JOSE () FOR PEG AND TRACHEOSTOMY CONSENT. PER , SHE IS UNSURE OF DECISION TO PLACE PEG AND TRACH AT THIS TIME. SHE VERBALIZED THAT SHE WILL SPEAK TO OTHER FAMILY MEMBERS BEFORE MAKING A DECISION. SHE ALSO VERBALIZED THAT SHE WILL CALL BACK ONCE DECISION HAS BEEN MADE. WILL CONTINUE TO MONITOR.
[2019-10-10] MEDS: hydrALAZINE HCL IV 20 MG VIAL IV PRN (22:45)
[2019-10-11] VITALS (30 sets, daily range): BP systolic 104–159; BP diastolic 45–80
--- NOTE | 2019-10-11 04:00 | NUR ---
PIPELINE DISPATCHER NOTE PATIENT TOLERATED BED BATH AROUND THIS TIME. WOUND DRESSING CHANGES DONE AND TOLERATED WELL. WILL CONTINUE TO MONITOR.
[2019-10-11 05:07] LABS: CALCIUM, SERUM 7.2 mg/dL (8.5-10.1); CARBON DIOXIDE 30 mmol/L (21-32); CHLORIDE 96 mmol/L (98-107); CREATININE 3.7 mg/dL (0.6-1.3); GLUCOSE 82 mg/dL (74-106); PHOSPHORUS 2.5 mg/dL (2.5-4.9); POTASSIUM 4.8 mmol/L (3.5-5.1); SODIUM SERUM 131 mmol/L (136-145); UREA NITROGEN, BLOOD 35 mg/dL (7-18)
[2019-10-11] MEDS: BLOOD SUGAR DIAGNOSTIC 1 EACH STRIP IN SCH ×4 (05:23→23:15)
[2019-10-11] MEDS: VANCOMYCIN HCL 125 MG/2.5 ML ORAL.SUSP GT SCH ×4 (05:23→23:06)
--- NOTE | 2019-10-11 07:05 | NUR ---
SOLAR INSTALLATION SUPERVISOR CLOSING NOTE PATIENT IS IN BED RESTING WITH HOB ELEVATED. OBTUNDED. ON VENT AND TOLERATING WELL. PATIENT IS KEPT NPO SINCE MIDNIGHT. PATIENT'S , JOSE, DID NOT CALL BACK TO GIVE CONSENT FOR PEG AND/OR TRACH PLACEMENT. PATIENT IS KEPT CLEAN, DRY, AND COMFORTABLE. ALL DUE MEDS GIVEN AND TOLERATED WELL. ENDORSED TO AM SHIFT RN FOR CONTINUATION OF CARE.
--- NOTE | 2019-10-11 07:45 | NUR ---
ICU/RN PT IS INTUBATED ON THE VENT AC MODE,FIO2-30%,SAT O2-100%.V/S STABLE AFEBRILE.NO PAIN REPORTED AT THIS TIME.PT S/P ASPIRATION IN SNF.C/P ARREST.REACTIVE ON PAIN STIMULATION ONLY.NG TUBE CLAMPED PT IS NPO.SUPPOSE TO HAVE G-TUBE PLACEMENT TODAY.FAMILY REFUSED TO SIGN CONSENT AT HIS TIME.PT HAS ESRD ON HD ,HD CATH ON THE RIGHT CHEST.THE RIGHT FEMORAL PICC LINE .GENERALIZED EDEMA PRESENT .PT HAS WOUND ON THE SACRUM,COVERED WITH MEPILEX.SUCTION PROVIDED.REPOSITION FOR COMFORT.
[2019-10-11] MEDS: VALPROIC ACID 250 MG/5 ML UDC GT SCH ×2 (08:09→20:26)
[2019-10-11] MEDS: SEVELAMER CARBONATE 0.8 GM POWD.PACK GT SCH ×3 (08:09→17:41)
[2019-10-11] MEDS: HYDROCORTISONE 20 MG TABLET GT SCH ×2 (08:09→17:43)
[2019-10-11] MEDS: LEVOTHYROXINE SODIUM 75 MCG TABLET GT SCH (08:09)
[2019-10-11] MEDS: METOPROLOL TARTRATE 50 MG TABLET GT SCH ×2 (08:10→20:26)
[2019-10-11] MEDS: PANTOPRAZOLE 40 MG VIAL IV SCH ×2 (08:10→16:36)
[2019-10-11] MEDS: CLOTRIMAZOLE 1% 15 GM TUBE TP SCH ×3 (08:11→17:42)
[2019-10-11] MEDS: NEOMY SULF/BACITRAC ZN/POLY 15 GM TUBE TP SCH (08:11)
[2019-10-11] MEDS: HYDROGEL DRESSING 90 GM TUBE TP SCH (08:11)
--- NOTE | 2019-10-11 17:42 | NUR ---
RT NOTE Pt received trach'd and on [facility] vent w charted settings. Vent is plugged into red outlet. Alarms are sent and audible. ETT is secure and patent. Pt sx'd w no adverse reactions. Pt is stable no sob or resp distress noted t/o shift. Addendum: 10/11/19 at 1834 by CRISTOBAL GIL RT Amended: Links added.
--- NOTE | 2019-10-11 18:40 | NUR ---
ICU/RN DUE MEDS ARE GIVEN ORDERED.PM CARE PROVIDED.WOUND DRESSING DONE ORDERED.SUCTION PROVIDED.REPOSITION FOR COMFORT.FAMILY AT BED SIDE.REFUSED TO SIGN CONSENTS FOR PEG PLACEMENT AND TRACH PLACEMENT .DR BAILEY NOTIFIED.CHARGE NURSE NOTIFIED.
--- NOTE | 2019-10-11 19:10 | NUR ---
RN OPENING NOTES: PATIENT IS INTUBATED, ON VENT AC MODE, FIO2 30%, SATURATING 100%. NO RESPIRATORY DISTRESS. NO S/S OF PAIN. ON NGT FEEDING VIA LEFT NARE, MINIMAL RESIDUAL, HOB ELEVATED. PATIENT HAS (R) FEMORAL 3 LUMEN CATH, C/D/I, FLUSHING WELL. (R) CHEST WALL HD CATH INTACT. PATIENT NOTED WITH GENERALIZED EDEMA. WILL TURN AND REPOSITION PER PROTOCOL. SAFETY PRECAUTIONS IMPLEMENTED. BED LOCKED AND LOW POSITION. CALL LIGHT WITHIN REACH. WILL CONT. TO MONITOR.
--- NOTE | 2019-10-11 19:52 | NUR ---
RECEIVED PT ORALLY INTUBATED WITH 8.0 SECURED @ 24 CM LIP LINE ON VENT WITH NOTED SETTINGS . NO RESP DISTRESS NOTED. PT TOLERATING VENT SETTINGS. PT IS OBTUNDED. CUFF JEWELRY SALES, SX'D DONE PRN. VENT ALARMS SET AND AUDIBLE. AMBU BAG AT BEDSIDE. VENT PLUGGED INTO RED OUTLET. WILL CONTINUE TO MONITOR THE PT T/O SHIFT.
[2019-10-12] VITALS (40 sets, daily range): BP systolic 105–170; BP diastolic 51–78
[2019-10-12] MEDS: hydrALAZINE HCL IV 20 MG VIAL IV PRN (01:09)
[2019-10-12] MEDS: VANCOMYCIN HCL 125 MG/2.5 ML ORAL.SUSP GT SCH ×3 (05:07→17:50)
[2019-10-12] MEDS: BLOOD SUGAR DIAGNOSTIC 1 EACH STRIP IN SCH ×3 (05:20→17:53)
[2019-10-12] MEDS: NEPRO 1,000 ML BOTTLE GT PRN (06:33)
--- NOTE | 2019-10-12 07:00 | NUR ---
RN CLOSING NOTES: PATIENT IS INTUBATED, ON VENT AC MODE, FIO2 30%, SATURATING 100%. NO RESPIRATORY DISTRESS. NO S/S OF PAIN. ON NGT FEEDING VIA LEFT NARE, MINIMAL RESIDUAL, HOB ELEVATED. PATIENT HAS (R) FEMORAL 3 LUMEN CATH, C/D/I, FLUSHING WELL. (R) CHEST WALL HD CATH INTACT. AT 0645, DR. ALDRIDGE AT BEDSIDE. PER MD, PATIENT MAY NOT BE A CANDIDATE FOR TRACH PLACEMENT. CHARGE NURSE MADE AWARE. CONSENTS FOR GT AND TRACH PLACEMENT STILL PENDING. PER ENDORSEMENT FROM AM SHIFT NURSE YESTERDAY, WANTS TO TALK TO DR. BAILEY TODAY. CALL LIGHT WITHIN REACH. ENDORSED TO AM SHIFT NURSE FOR CONTINUITY OF CARE.
[2019-10-12 07:33] LABS: BASOPHILS % (AUTO) 0.2 % (0.0-2.0); EOSINOPHILS % (AUTO) 0.3 % (0.0-6.0); HEMATOCRIT 25 % (39-51); LYMPHOCYTES # (AUTO) 0.6 /CMM (0.8-4.8); LYMPHOCYTES % (AUTO) 4.9 % (20.0-44.0); MEAN CORPUSCULAR HGB CONC 33 g/dl (31.0-36.0); MEAN CORPUSCULAR VOLUME 95 fL (80-96); MONOCYTES # (AUTO) 1.1 /CMM (0.1-1.30); MONOCYTES % (AUTO) 7.9 % (2.0-12.0); NEUTROPHILS # (AUTO) 11.5 /CMM (1.8-8.9); NEUTROPHILS % (AUTO) 86.7 % (43.0-81.0); PLATELET COUNT (AUTO) 183 /CMM (150-450); RED BLOOD CELL COUNT(AUTO) 2.59 MIL/uL (4.5-6.0); WHITE BLOOD COUNT (AUTO) 13.2 K/uL (4.3-11.0)
[2019-10-12 07:49] LABS: CALCIUM, SERUM 6.9 mg/dL (8.5-10.1); CARBON DIOXIDE 28 mmol/L (21-32); CHLORIDE 96 mmol/L (98-107); CREATININE 4.3 mg/dL (0.6-1.3); GLUCOSE 114 mg/dL (74-106); POTASSIUM 4.9 mmol/L (3.5-5.1); SODIUM SERUM 130 mmol/L (136-145); UREA NITROGEN, BLOOD 44 mg/dL (7-18)
[2019-10-12] MEDS: PANTOPRAZOLE 40 MG VIAL IV SCH ×2 (08:06→17:52)
[2019-10-12] MEDS: HYDROCORTISONE 20 MG TABLET GT SCH ×2 (08:07→17:52)
[2019-10-12] MEDS: SEVELAMER CARBONATE 0.8 GM POWD.PACK GT SCH ×3 (08:07→17:51)
[2019-10-12] MEDS: LEVOTHYROXINE SODIUM 75 MCG TABLET GT SCH (08:07)
[2019-10-12] MEDS: VALPROIC ACID 250 MG/5 ML UDC GT SCH ×2 (08:07→21:29)
[2019-10-12] MEDS: CLOTRIMAZOLE 1% 15 GM TUBE TP SCH ×3 (08:08→17:53)
[2019-10-12] MEDS: HYDROGEL DRESSING 90 GM TUBE TP SCH (08:08)
[2019-10-12] MEDS: NEOMY SULF/BACITRAC ZN/POLY 15 GM TUBE TP SCH (08:09)
[2019-10-12] MEDS: METOPROLOL TARTRATE 50 MG TABLET GT SCH ×2 (08:10→21:29)
--- NOTE | 2019-10-12 11:00 | NUR ---
ICU/RN ALBUMIN 100ML GIVEN DURING HD TO SUPPORT BP. 1500 ML OUTPUT.CONTINUE MONITORING.
[2019-10-12] MEDS: ALBUMIN 25% 25 GM in PREMIX 1 EA IV PRN (11:29)
--- NOTE | 2019-10-12 19:44 | NUR ---
RECEIVED PT ORALLY INTUBATED WITH 8.0 SECURED @ 24 CM LIP LINE ON VENT WITH NOTED SETTINGS . NO RESP DISTRESS NOTED. PT TOLERATING VENT SETTINGS. PT IS OBTUNDED. CUFF AIRFIELD SERVICES OFFICER, SX'D DONE PRN. VENT ALARMS SET AND AUDIBLE. AMBU BAG AT BEDSIDE. VENT PLUGGED INTO RED OUTLET. WILL CONTINUE TO MONITOR THE PT T/O SHIFT.
[2019-10-13] VITALS (25 sets, daily range): BP systolic 109–165; BP diastolic 47–81
[2019-10-13] MEDS: BLOOD SUGAR DIAGNOSTIC 1 EACH STRIP IN SCH ×5 (00:15→23:59)
[2019-10-13] MEDS: VANCOMYCIN HCL 125 MG/2.5 ML ORAL.SUSP GT SCH ×5 (00:18→23:56)
[2019-10-13] MEDS: hydrALAZINE HCL IV 20 MG VIAL IV PRN (00:19)
--- NOTE | 2019-10-13 00:44 | NUR ---
HOSPICE COMMUNITY LIAISON: REASSESSED AFTER GIVEN HYDRALAZINE FOR SBP ABOVE 160 WT GOOD EFFECT. RZ=[id number]/63. WILL CONTINUE TO MONITOR.
[2019-10-13] MEDS: NEPRO 1,000 ML BOTTLE GT PRN (03:20)
--- NOTE | 2019-10-13 06:30 | NUR ---
END POLISHER: NO SIGNIFICANT BROCK DURING THE SHIFT. REMAINED INTUBATED WT VENT SETTINGS ORDERED. NO ACUTE DISTRESS, NO EVIDENCE OF DISCOMFORT. V/S WITHIN PT's BASELINE. CALLED AND UPDATED STATUS. BED BATH GIVEN TOLERATED FAIRLY. TURNED AND REPOSITIONED Q2H. ALL NEEDS MET. WILL ENDORSE TO DAY SHIFT FOR CONTINUITY OF CARE.
--- NOTE | 2019-10-13 07:52 | NUR ---
PROTOTYPE ENGINEER MANAGER OPENING NOTE RECEIVED REPORT FROM PM NURSE.PATIENT IS INTUBATED, ON VENT AC MODE.TOLERATING SETTINGS WELL. NO RESPIRATORY DISTRESS. NO S/S OF PAIN. NGT CLOGGED. PATIENT HAS (R) FEMORAL 3 LUMEN CATH, C/D/I, FLUSHING WELL. (R) CHEST WALL HD CATH INTACT.ON TELE MONITOR SR.BED IS LOW AND IN LOCKED POSITION.CALL LIGHT IN REACH.BED ALARM ON SRX3.WILL CONTINUE TO MONITOR.
[2019-10-13] MEDS: HYDROCORTISONE 20 MG TABLET GT SCH ×2 (08:48→17:29)
[2019-10-13] MEDS: METOPROLOL TARTRATE 50 MG TABLET GT SCH ×2 (08:48→20:36)
[2019-10-13] MEDS: PANTOPRAZOLE 40 MG VIAL IV SCH ×2 (08:48→17:29)
[2019-10-13] MEDS: SEVELAMER CARBONATE 0.8 GM POWD.PACK GT SCH ×3 (08:48→17:29)
[2019-10-13] MEDS: VALPROIC ACID 250 MG/5 ML UDC GT SCH ×2 (08:48→20:36)
[2019-10-13] MEDS: LEVOTHYROXINE SODIUM 75 MCG TABLET GT SCH (08:50)
[2019-10-13] MEDS: HYDROGEL DRESSING 90 GM TUBE TP SCH (08:51)
[2019-10-13] MEDS: CLOTRIMAZOLE 1% 15 GM TUBE TP SCH ×3 (08:51→17:30)
[2019-10-13] MEDS: NEOMY SULF/BACITRAC ZN/POLY 15 GM TUBE TP SCH (08:52)
--- NOTE | 2019-10-13 09:00 | NUR ---
TOLL LINE REPAIRER NOTE NGT REPLACED BECAUSE OF OLD NGT CLOGGED.VERIFIED WITH 2RN.WILL CONTINUE TO MONITOR.
--- NOTE | 2019-10-13 14:07 | NUR ---
PROFESSOR OF LEGAL STUDIES left a voicemail message for pt's Rhina to schedule a bioethics meeting for Wednesday, October 16, 2019.
--- NOTE | 2019-10-13 14:29 | NUR ---
CANDLE MOLDER HAND after consultation with Dr. Coleman filed APS report against pt's Rhina due to pt having very poor prognosis and pt being intubated for over the accepted time frame. Pt is not a candidate for a trach, however, pt's is insisting pt. have one and not be terminally extubated or comfort measures.
--- NOTE | 2019-10-13 18:41 | NUR ---
MAINTENANCE CARPENTER CLOSING NOTE .PATIENT IS INTUBATED, ON VENT AC MODE.TOLERATING SETTINGS WELL. NO RESPIRATORY DISTRESS. NO S/S OF PAIN. . PATIENT HAS (R) FEMORAL 3 LUMEN CATH, C/D/I, FLUSHING WELL. (R) CHEST WALL HD CATH INTACT.ON TELE MONITOR SR.BED IS LOW AND IN LOCKED POSITION.CALL LIGHT IN REACH. AT BEDSIDE .ANSWERED ALL QUESTIONS.BED ALARM ON SRX3.ENDORSED TO PM NURSE FOR BROCK.
--- NOTE | 2019-10-13 20:00 | NUR ---
CHOCOLATE FINISHER NOTES Received patient obtunded.DNR status.Orally intubated to vent on full vent support.Vent settings well tolerated.With moderate secretions orally/via ET tube suction PRN.SR per monitor. VSS.Left NGT feeding infusing.NGT placement verified by auscultation and aspiration.No residual noted.HOB elevated.With edema to both upper arms kept elevated on pillows & scrotum edema. Right upper chest HD cath intact and right femoral TLC intact and patent.Turned and repositioned. Maintained on [employer]CI mattress for multiple skin issues.Continue monitoring.
[2019-10-14] VITALS (41 sets, daily range): BP systolic 92–165; BP diastolic 45–89
[2019-10-14] MEDS: hydrALAZINE HCL IV 20 MG VIAL IV PRN ×2 (02:12→19:30)
--- NOTE | 2019-10-14 02:12 | NUR ---
RT NOTE Pt Rec'd intubated via ETT sz #8.0 secured at 24cm at the lipline. Pt on [facility] vent on AC mode settings as charted. Pt shows no signs of resp distress or sob. Pt sx'd for thick mod amt of blood tinged secretions. Alarms are set and audible. Vent plugged into red outlet. Ambu bag bedside. Will continue to monitor. Addendum: 10/14/19 at 0215 by CALI MIRAMONTES RT Amended: Links added.
--- NOTE | 2019-10-14 02:12 | NUR ---
Patient BP elevated 165/84 PRN Hydralazine administered as ordered.Continue monitoring.
[2019-10-14] MEDS: VANCOMYCIN HCL 125 MG/2.5 ML ORAL.SUSP GT SCH ×4 (05:51→23:35)
[2019-10-14] MEDS: BLOOD SUGAR DIAGNOSTIC 1 EACH STRIP IN SCH ×4 (05:51→23:35)
[2019-10-14] MEDS: NEPRO 1,000 ML BOTTLE GT PRN (05:52)
--- NOTE | 2019-10-14 06:30 | NUR ---
Patient remains obtunded.VSS.SR.Tolerating vent settings and tube feeding.Turned and repositioned q 2 hrs.Bathed and complete linens changed.Oral care done.FSBS WNL.No significant change noted during the shift.All needs met.
--- NOTE | 2019-10-14 07:17 | NUR ---
Report given to Main Elizalde RN-IN CHARGE awaiting for DON Yee assigned ti this patient.
--- NOTE | 2019-10-14 07:20 | NUR ---
SECURITY INSTALLER NOTES RECEIVED PT ON BED, OBTUNDED, ORALLY INTUBATED, TOLERATING CURRENT VENT SETTING WELL, ET AND ORAL SUCTIONING DONE, NEPHRO AT 40CC/HR RUNNING VIA NGT , TOLERATING WELL, NO RESIDUAL NOTED, ON TELE SR, HR IN 80'S , R FEMORAL TLC PICC LINE AND R UPPER CHEST HD CATH SITES, CLEAN, DRY AND INTACT, SR UP x3, CALL LIGHT WITHIN EASY REACH, BED LOCKED AND IN LOWEST POSITION, CONTINUE TO MONITOR .
[2019-10-14] MEDS: HYDROCORTISONE 20 MG TABLET GT SCH ×2 (08:12→17:14)
[2019-10-14] MEDS: VALPROIC ACID 250 MG/5 ML UDC GT SCH ×2 (08:12→21:07)
[2019-10-14] MEDS: PANTOPRAZOLE 40 MG VIAL IV SCH ×2 (08:12→16:28)
[2019-10-14] MEDS: SEVELAMER CARBONATE 0.8 GM POWD.PACK GT SCH ×3 (08:12→17:14)
[2019-10-14] MEDS: LEVOTHYROXINE SODIUM 75 MCG TABLET GT SCH (08:12)
[2019-10-14] MEDS: METOPROLOL TARTRATE 50 MG TABLET GT SCH ×2 (08:13→21:08)
[2019-10-14] MEDS: CLOTRIMAZOLE 1% 15 GM TUBE TP SCH ×3 (08:15→16:29)
[2019-10-14] MEDS: Z GUARD REMEDY 2 OZ OINT TP PRN (08:15)
[2019-10-14] MEDS: NEOMY SULF/BACITRAC ZN/POLY 15 GM TUBE TP SCH (08:16)
[2019-10-14] MEDS: HYDROGEL DRESSING 90 GM TUBE TP SCH (08:59)
--- NOTE | 2019-10-14 13:45 | NUR ---
RN NOTES PT RECEIVING HD AT THIS TIME , VSS STABLE CONTINUE TO MONITOR .
--- NOTE | 2019-10-14 18:00 | NUR ---
RN NOTES PT'S AT THE BEDSIDE, VSS STABLE, NO SIGNIFICANT CHANGES NOTED ON THIS SHIFT, SR UP x3, CALL LIGHT WITHIN EASY REACH , BED LOCKED AND IN LOWEST POSITION, WILL ENDORSE TO PLANT WRAPPER NURSE FOR CONTINUITY OF CARE .
--- NOTE | 2019-10-14 19:30 | NUR ---
PT RECEIVED ORALLY INTUBATED ON [facility] VENT ON CHARTED SETTINGS. NO SIGNS OF DISTRESS/SOB NOTED. AIRWAY PATENT AND SECURED. BELLMAN DONE. PT SUCTIONED. ALARMS SET AND AUDIBLE. AMBUBAG AT BESIDE. VENT CONNECTED TO RED OUTLET. WILL CONT TO MONITOR. Addendum: 10/14/19 at 2017 by MARILIN HENRY RT Amended: Links added.
--- NOTE | 2019-10-14 20:00 | NUR ---
BABBITT SPINNER NOTES Received obtunded orally intubated to mechanical vent on full vent support.Vent settings well tolerated.SPO2 100%.Patient DNR status.SR per monitor.VSS.NGT feeding infusing. NGT placement verified patent and no residual noted.HOB elevated.Turned and repositioned. Maintained on KCI mattress.H/O ESRD on HD.No urine output noted.Continue monitoring.
[2019-10-15] VITALS (28 sets, daily range): BP systolic 127–160; BP diastolic 56–86
[2019-10-15 04:55] LABS: BASOPHILS % (AUTO) 0.2 % (0.0-2.0); EOSINOPHILS % (AUTO) 0.2 % (0.0-6.0); HEMATOCRIT 23 % (39-51); HEMOGLOBIN 7.8 g/dL (13.5-17.5); LYMPHOCYTES # (AUTO) 0.4 /CMM (0.8-4.8); LYMPHOCYTES % (AUTO) 4.4 % (20.0-44.0); MEAN CORPUSCULAR HGB CONC 34 g/dl (31.0-36.0); MEAN CORPUSCULAR VOLUME 94 fL (80-96); MONOCYTES # (AUTO) 0.7 /CMM (0.1-1.30); MONOCYTES % (AUTO) 7.2 % (2.0-12.0); NEUTROPHILS # (AUTO) 8.5 /CMM (1.8-8.9); PLATELET COUNT (AUTO) 243 /CMM (150-450); RED BLOOD CELL COUNT(AUTO) 2.41 MIL/uL (4.5-6.0); WHITE BLOOD COUNT (AUTO) 9.6 K/uL (4.3-11.0)
[2019-10-15 05:03] LABS: CARBON DIOXIDE 32 mmol/L (21-32); CHLORIDE 99 mmol/L (98-107); CREATININE 3.5 mg/dL (0.6-1.3); GLUCOSE 121 mg/dL (74-106); POTASSIUM 4.3 mmol/L (3.5-5.1); SODIUM SERUM 135 mmol/L (136-145); UREA NITROGEN, BLOOD 38 mg/dL (7-18)
[2019-10-15] MEDS: BLOOD SUGAR DIAGNOSTIC 1 EACH STRIP IN SCH ×3 (05:38→17:10)
[2019-10-15] MEDS: VANCOMYCIN HCL 125 MG/2.5 ML ORAL.SUSP GT SCH ×4 (05:38→23:36)
[2019-10-15] MEDS: NEPRO 1,000 ML BOTTLE GT PRN (06:59)
--- NOTE | 2019-10-15 07:30 | NUR ---
ICU/RN AM SHIFT OPENING NOTES RECEIVED PT ASLEEP IN BED, PT OBTUNDED, NO ACUTE DISTRESS OR GRIMACING NOTED. INTUBATED, WITH 24CM ON LIP LINE, VENTILATOR, TRACHED, WITH VENTILATOR RATES SET PRESCRIBED, SATURATING @ 100%, RESPIRATIONS EVEN & UNLABORED, LUNG SOUNDS CLEAR. ON TELE WITH SINUS RHYTHM WITH FIRST DEGREE AV BLOCK, HR 68. IV SITE FLUSHED, PATENT WITH NO S/S OF INFECTION, SL. WITH ON GOING NGT FEEDING, TUBE IN PLACED ON LEFT NARE, RATE @ 40C/HR, NO GASTRIC RESIDUAL NOTED. PT IS COMFORTABLE SCHEDULED AM MEDS TO BE GIVEN. CL WITHIN REACHED, SAFETY MAINTAINED AND ISOLATION OBSERVED.
--- NOTE | 2019-10-15 07:45 | NUR ---
Patient am care done.Wound dressing changed.Secretions suctioned and oral care done. VSS.SR.FSBS WNL.Tolerating tube feeding.All due medications administered.Was turned and repositioned Q 2 hrs offloading pressure points.No significant change noted during the shift.Report given to DON Perez for continuity of care.
[2019-10-15] MEDS: METOPROLOL TARTRATE 50 MG TABLET GT SCH ×2 (09:00→20:59)
[2019-10-15] MEDS: LEVOTHYROXINE SODIUM 75 MCG TABLET GT SCH (09:00)
[2019-10-15] MEDS: PANTOPRAZOLE 40 MG VIAL IV SCH ×2 (09:00→17:09)
[2019-10-15] MEDS: HYDROCORTISONE 20 MG TABLET GT SCH ×2 (09:00→17:09)
[2019-10-15] MEDS: SEVELAMER CARBONATE 0.8 GM POWD.PACK GT SCH ×3 (09:00→17:09)
[2019-10-15] MEDS: VALPROIC ACID 250 MG/5 ML UDC GT SCH ×2 (09:01→20:59)
[2019-10-15] MEDS: CLOTRIMAZOLE 1% 15 GM TUBE TP SCH ×3 (09:03→17:10)
[2019-10-15] MEDS: NEOMY SULF/BACITRAC ZN/POLY 15 GM TUBE TP SCH (09:03)
[2019-10-15] MEDS: HYDROGEL DRESSING 90 GM TUBE TP SCH (09:03)
--- NOTE | 2019-10-15 12:00 | NUR ---
ICU/RN NOON ROUNDS PT SUCTIONED AND REPOSITIONED, NO CHANGE OF CONDITION. MONITORING CONTINUED.
--- NOTE | 2019-10-15 18:00 | NUR ---
ICU/RN PM CARE PM CARE PROVIDED, NO ACUTE CHANGE OF CONDITION. ON GOING MONITORING.
--- NOTE | 2019-10-15 19:25 | NUR ---
ICU/RN AM SHIFT CLOSING NOTES ALL NEEDS MET. NO ACUTE CHANGE OF CONDITION NOTED DURING THE SHIFT. PT ENDORSED TO PM NURSE TO CONTINUE CARE. CL WITHIN REACHED, SAFETY MAINTAINED AND ISOLATION OBSERVED.
--- NOTE | 2019-10-15 20:00 | NUR ---
SMALL ELECTRIC ENGINE TECHNICIAN NOTE PT IN BED OBTUNDED. ON ETT 8, 24 AT LIPS. TOLERATING VENT SETTINGS. ON DISTRESS OR DISCOMFORT NOTED. NO S/S OF PAIN NOTED. GT LT NARES INTACT AND PATENT INFUSING NEPRO @40 ML/HR, 0 ML RESIDUAL NOTED. RT FEMORAL TRIPLE LUMEN CATH INTACT AND PATENT. RU CHEST WITH HD CATH INTACT. ON TELE MONITOR SR HR 85. REPOSITION HIM FOR COMFORT AND SKIN MANAGEMENT. SIDE RAILS UP X 2 AND CALL LIGHT WITHIN REACH. VSS. CONTINUE TO MONITOR HIM.
[2019-10-16] VITALS (24 sets, daily range): BP systolic 116–173; BP diastolic 60–86
[2019-10-16] MEDS: BLOOD SUGAR DIAGNOSTIC 1 EACH STRIP IN SCH ×4 (00:04→17:51)
[2019-10-16 04:26] LABS: BASOPHILS # (AUTO) 0.1 /CMM (0.0-0.2); BASOPHILS % (AUTO) 0.6 % (0.0-2.0); EOSINOPHILS % (AUTO) 0.3 % (0.0-6.0); HEMATOCRIT 23 % (39-51); HEMOGLOBIN 7.7 g/dL (13.5-17.5); LYMPHOCYTES # (AUTO) 0.4 /CMM (0.8-4.8); LYMPHOCYTES % (AUTO) 4.6 % (20.0-44.0); MEAN CORPUSCULAR HGB CONC 33 g/dl (31.0-36.0); MEAN CORPUSCULAR VOLUME 96 fL (80-96); MONOCYTES # (AUTO) 0.6 /CMM (0.1-1.30); MONOCYTES % (AUTO) 7.1 % (2.0-12.0); NEUTROPHILS # (AUTO) 7.6 /CMM (1.8-8.9); NEUTROPHILS % (AUTO) 87.4 % (43.0-81.0); PLATELET COUNT (AUTO) 243 /CMM (150-450); RED BLOOD CELL COUNT(AUTO) 2.42 MIL/uL (4.5-6.0); WHITE BLOOD COUNT (AUTO) 8.7 K/uL (4.3-11.0)
[2019-10-16 04:36] LABS: CALCIUM, SERUM 7.7 mg/dL (8.5-10.1); CARBON DIOXIDE 33 mmol/L (21-32); CHLORIDE 97 mmol/L (98-107); CREATININE 3.7 mg/dL (0.6-1.3); GLUCOSE 107 mg/dL (74-106); POTASSIUM 4.6 mmol/L (3.5-5.1); SODIUM SERUM 133 mmol/L (136-145); UREA NITROGEN, BLOOD 47 mg/dL (7-18)
[2019-10-16] MEDS: VANCOMYCIN HCL 125 MG/2.5 ML ORAL.SUSP GT SCH (05:26)
[2019-10-16] MEDS: NEPRO 1,000 ML BOTTLE GT PRN (05:52)
--- NOTE | 2019-10-16 06:33 | NUR ---
SEARCH COORDINATOR NOTE NO CHANGE IN CONDITION NOTED. TOLERATING VENT SETTINGS. NO DISTRESS OR DISCOMFORT NOTED. NO S/S OF PAIN. NOTED. ON TELE SR 82. NGT INTACT AND PATENT INFUSING NEPRO AT 40 ML/HR 0 ML RESIDUAL NOTED. REPOSITION HIM Q2H, KEPT HIM DRY AND CLEAN. ALL NEEDS ATTENDED. WILL ENDORSE TO DAY SHIFT NURSE FOR CONTINUE TO CARE.
--- NOTE | 2019-10-16 07:30 | NUR ---
ICU/RN AM SHIFT OPENING NOTES RECEIVED PT ASLEEP IN BED, OBTUNDED, NO ACUTE DISTRESS, CHANGE OF CONDITION OR GRIMACING NOTED. INTUBATED, WITH 24CM ON LIP LINE, VENTILATOR, WITH VENTILATOR RATES SET PRESCRIBED, SATURATING @ 100%, RESPIRATIONS EVEN & UNLABORED, LUNG SOUNDS CLEAR. SUCTIONED FOR AIRWAY CLEARANCE. ON TELE WITH SINUS RHYTHM WITH FIRST DEGREE AV BLOCK, HR 85. IV SITE FLUSHED, PATENT WITH NO S/S OF INFECTION, SL. WITH ON GOING NGT FEEDING, TUBE IN PLACED ON LEFT NARE, RATE @ 40C/HR, NO GASTRIC RESIDUAL NOTED. PT IS COMFORTABLE SCHEDULED AM MEDS TO BE GIVEN. CL WITHIN REACHED, SAFETY MAINTAINED AND ISOLATION OBSERVED FOR C-DIFF.
[2019-10-16] MEDS: SEVELAMER CARBONATE 0.8 GM POWD.PACK GT SCH ×3 (08:50→17:51)
[2019-10-16] MEDS: HYDROGEL DRESSING 90 GM TUBE TP SCH (08:51)
[2019-10-16] MEDS: PANTOPRAZOLE 40 MG VIAL IV SCH ×2 (08:51→17:51)
[2019-10-16] MEDS: LEVOTHYROXINE SODIUM 75 MCG TABLET GT SCH (08:51)
[2019-10-16] MEDS: METOPROLOL TARTRATE 50 MG TABLET GT SCH ×2 (08:51→21:05)
[2019-10-16] MEDS: VALPROIC ACID 250 MG/5 ML UDC GT SCH ×2 (08:51→21:06)
[2019-10-16] MEDS: NEOMY SULF/BACITRAC ZN/POLY 15 GM TUBE TP SCH (08:52)
[2019-10-16] MEDS: CLOTRIMAZOLE 1% 15 GM TUBE TP SCH ×3 (08:52→17:51)
[2019-10-16] MEDS: HYDROCORTISONE 20 MG TABLET GT SCH ×2 (08:52→17:51)
--- NOTE | 2019-10-16 12:00 | NUR ---
ICU/RN NOON ROUNDS NO CHANGE OF CONDITION. PT TURNED AND REPOSITION. MONITORING CONTINUED.
--- NOTE | 2019-10-16 19:30 | NUR ---
CISCO ADMINISTRATOR OPENING NOTES, RECEIVED Patient ASLEEP, OBTUNDED, INTUBATED, WITH 24CM ON LIP LINE, VENTILATOR, WITH VENTILATOR RATES SET PRESCRIBED, SATURATING @ 100%, RESPIRATIONS EVEN & UNLABORED, LUNG SOUNDS CLEAR. NO ACUTE DISTRESS NOTED AT THIS TIME. ON TELE WITH SINUS RHYTHM WITH FIRST DEGREE AV BLOCK, HR 81. IV SITE FLUSHED, PATENT WITH NO S/S OF INFILTRATION, SL. WITH ON GOING NGT FEEDING, TUBE IN PLACED ON LEFT NARE, RATE @ 40C/HR, NO GASTRIC RESIDUAL NOTED. SAFETY MAINTAINED AND ISOLATION OBSERVED FOR C-DIFF. BED IN LOW/LOCKED POSITION, WILL CONTINUE TO MONITOR.
[2019-10-17] VITALS (24 sets, daily range): BP systolic 113–167; BP diastolic 54–84
[2019-10-17] MEDS: BLOOD SUGAR DIAGNOSTIC 1 EACH STRIP IN SCH ×4 (00:10→18:03)
[2019-10-17] MEDS: hydrALAZINE HCL IV 20 MG VIAL IV PRN (03:19)
[2019-10-17] MEDS: NEPRO 1,000 ML BOTTLE GT PRN (06:50)
--- NOTE | 2019-10-17 07:12 | NUR ---
MECHANICAL ENGINEERING TECHNOLOGIST CLOSING NOTES, PATIENT IS IN BED SLEEPING, PATIENT TOLERATING THE VENT SETTING WELL. NO ACUTE CHANGES DURING MEDICAL CENTER REPRESENTATIVE. IV SITES PATENT AND FLUSHING WELL, NO S/S OF INFILTRATION NOTED. PATIENT KEPT CLEAN AND DRY DURING MEDICAL CENTER REPRESENTATIVE. BED IN LOW/LOCKED POSITION CALL LIGHT WITHIN REACH. PATIENT ENDORSED TO AM RN FOR BROCK
--- NOTE | 2019-10-17 08:00 | NUR ---
ICU/RN AM SHIFT OPENING NOTES RECEIVED PT ASLEEP IN BED, OBTUNDED, NO ACUTE CHANGE OF CONDITION OR GRIMACING NOTED. INTUBATED, WITH 24CM ON LIP LINE, VENTILATOR, WITH VENTILATOR RATES SET PRESCRIBED, SATURATING @ 100%, RESPIRATIONS EVEN & UNLABORED, LUNG SOUNDS CLEAR. SUCTIONED FOR AIRWAY CLEARANCE. ON TELE WITH SINUS RHYTHM WITH FIRST DEGREE AV BLOCK, HR 81. CENTRAL LINE FLUSHED, PATENT WITH NO S/S OF INFECTION, SL. WITH ON GOING NGT FEEDING, TUBE IN PLACED ON LEFT NARE, RATE @ 40C/HR, NO GASTRIC RESIDUAL NOTED. PT IS COMFORTABLE SCHEDULED AM MEDS TO BE GIVEN. CL WITHIN REACHED, SAFETY MAINTAINED AND ISOLATION OBSERVED FOR C-DIFF.
[2019-10-17] MEDS: PANTOPRAZOLE 40 MG VIAL IV SCH ×2 (08:56→18:02)
[2019-10-17] MEDS: LEVOTHYROXINE SODIUM 75 MCG TABLET GT SCH (08:56)
[2019-10-17] MEDS: METOPROLOL TARTRATE 50 MG TABLET GT SCH ×2 (08:56→21:45)
[2019-10-17] MEDS: VALPROIC ACID 250 MG/5 ML UDC GT SCH ×2 (08:56→21:45)
[2019-10-17] MEDS: SEVELAMER CARBONATE 0.8 GM POWD.PACK GT SCH ×3 (08:56→18:02)
[2019-10-17] MEDS: HYDROCORTISONE 20 MG TABLET GT SCH ×2 (08:57→18:02)
[2019-10-17] MEDS: HYDROGEL DRESSING 90 GM TUBE TP SCH (08:57)
[2019-10-17] MEDS: CLOTRIMAZOLE 1% 15 GM TUBE TP SCH ×3 (08:57→18:03)
[2019-10-17] MEDS: NEOMY SULF/BACITRAC ZN/POLY 15 GM TUBE TP SCH (08:57)
--- NOTE | 2019-10-17 10:49 | NUR ---
ICU/RN ROUNDS - DR. DELUNA UPDATED PT'S CONDITION. PT SEEN & EXAMINED BY DR. DELUNA. NO NEW ORDER RECEIVED AT THIS TIME.
--- NOTE | 2019-10-17 17:30 | NUR ---
ICU/RN AFTERNOON ROUNDS NO ACUTE CHANGE OF CONDITION. PM CARE PROVIDED. ON GOING MONITORING.
--- NOTE | 2019-10-17 19:35 | NUR ---
FASHION ARTIST OPENING NOTES, RECEIVED PATIENT IN BED, OBTUNDED, INTUBATED WITH 24CM ON LIP LINE VENTILATOR. TOLERATING VENTILATOR SETTING WELL. NO SOB OR ACUTE DISTRESS NOTED AT THIS TIME. SATURATING 100%. HR SR WITH FIRST DEGREE AV BLOCK @85. IV SITE FLUSHING WELL AND NO S/S OF INFILTRATION NOTED AT THIS TIME, SL. PATIENT HAS ONGOING NG TUBE FEEDING @ 40CC/HR. NO GASTRIC RESIDUAL NOTED. SAFETY MAINTENANCE IN PLACE, BED IN LOW/LOCKED POSITION. WILL CONTINUE TO MONITOR THE PATIENT CLOSELY.
--- NOTE | 2019-10-17 19:36 | NUR ---
ICU/RN AM SHIFT CLOSING NOTES NO ACUTE CHANGE OF CONDITION DURING THE SHIFT. ALL NEEDS MET. PT ENDORSED TO PM NURSE TO CONTINUE CARE. CL WITHIN REACHED, SAFETY MAINTAINED AND ISOLATION OBSERVED.
[2019-10-18] VITALS (37 sets, daily range): BP systolic 83–151; BP diastolic 39–83
[2019-10-18] MEDS: BLOOD SUGAR DIAGNOSTIC 1 EACH STRIP IN SCH ×5 (00:10→23:05)
[2019-10-18] MEDS: NEPRO 1,000 ML BOTTLE GT PRN (06:12)
--- NOTE | 2019-10-18 07:11 | NUR ---
TEXT TRANSCRIBER CLOSING NOTES, PATIENT IN BED, OBTUNDED, INTUBATED WITH 24CM ON LIP LINE VENTILATOR. TOLERATING VENTILATOR SETTING WELL. NO SOB OR ACUTE DISTRESS NOTED AT THIS TIME. SATURATING 100%. HR SR WITH FIRST DEGREE AV BLOCK @87. IV SITE FLUSHING WELL AND NO S/S OF INFILTRATION NOTED AT THIS TIME, SL. PATIENT HAS ONGOING NG TUBE FEEDING @ 40CC/HR. NO GASTRIC RESIDUAL NOTED. SAFETY MAINTENANCE IN PLACE, BED IN LOW/LOCKED POSITION.ENDORSED THE PATIENT TO AM RN FOR BROCK.
--- NOTE | 2019-10-18 07:30 | NUR ---
RNNOTES RECEIVED IN BED, OBTUNDED, NOT ON ANY FORM OF DISTRESS. ORALLY INTUBATED, TUBE 8CM AT 24CM ON LIP LINE, ON VENT. VENTILATOR SETTINGS AT PRESCRIBED, SATURATING @ 100%, RESPIRATIONS EVEN & UNLABORED. SINUS RHYTHM WITH FIRST DEGREE AV BLOCK, HR 80s. IV SITE ON THE R GROIN AREA, TLC,SL- FLUSHED, PATENT WITH NO S/S OF INFECTION. WITH ON GOING NGT FEEDING, TUBE IN PLACED ON LEFT NARE, RATE @ 40C/HR, NO GASTRIC RESIDUAL NOTED AT THIS TIME. HOB KEPT ELEVATED. CALL LIGHT WITHIN REACHED, SAFETY MEASURES OBSERVED AND MAINTAINED, WILL IMPLEMENT ISOLATION FOR C-DIFF.
--- NOTE | 2019-10-18 07:30 | NUR ---
RT PATIENT REC'D ORALLY INTUBATED ON [facility] VENT WITH ORDERED SETTINGS. VENT ALARMS CHECKED + AUDIBLE. AIRWAY REMAINS PATIENT AND SECURE. CONT CURRENT PLAN OF RESP CARE Addendum: 10/18/19 at 1700 by ELIZABETH NOE RT Amended: Links added.
[2019-10-18] MEDS: LEVOTHYROXINE SODIUM 75 MCG TABLET GT SCH (08:00)
[2019-10-18] MEDS: SEVELAMER CARBONATE 0.8 GM POWD.PACK GT SCH ×3 (08:00→17:31)
[2019-10-18] MEDS: VALPROIC ACID 250 MG/5 ML UDC GT SCH ×2 (08:33→21:41)
[2019-10-18] MEDS: METOPROLOL TARTRATE 50 MG TABLET GT SCH ×2 (08:33→20:49)
[2019-10-18] MEDS: PANTOPRAZOLE 40 MG VIAL IV SCH ×2 (08:33→17:31)
[2019-10-18] MEDS: HYDROCORTISONE 20 MG TABLET GT SCH ×2 (08:33→17:31)
[2019-10-18] MEDS: HYDROGEL DRESSING 90 GM TUBE TP SCH (08:34)
[2019-10-18] MEDS: NEOMY SULF/BACITRAC ZN/POLY 15 GM TUBE TP SCH (08:36)
[2019-10-18] MEDS: CLOTRIMAZOLE 1% 15 GM TUBE TP SCH ×3 (08:36→17:45)
[2019-10-18 09:29] LABS: BASOPHILS % (AUTO) 0.5 % (0.0-2.0); EOSINOPHILS % (AUTO) 0.6 % (0.0-6.0); LYMPHOCYTES # (AUTO) 0.3 /CMM (0.8-4.8); LYMPHOCYTES % (AUTO) 5.8 % (20.0-44.0); MEAN CORPUSCULAR HGB CONC 33 g/dl (31.0-36.0); MEAN CORPUSCULAR VOLUME 94 fL (80-96); MONOCYTES # (AUTO) 0.3 /CMM (0.1-1.30); MONOCYTES % (AUTO) 5.1 % (2.0-12.0); NEUTROPHILS # (AUTO) 4.7 /CMM (1.8-8.9); PLATELET COUNT (AUTO) 162 /CMM (150-450); WHITE BLOOD COUNT (AUTO) 5.3 K/uL (4.3-11.0)
[2019-10-18 09:38] LABS: HEMOGLOBIN 6.6 g/dL (13.5-17.5)
[2019-10-18 09:39] LABS: HEMATOCRIT 20 % (39-51)
[2019-10-18 09:49] LABS: ALANINE AMINOTRANSFERASE 33 U/L (12-78); ALKALINE PHOSPHATASE 103 U/L (46-116); ASPARTATE AMINOTRANSFERASE 106 U/L (15-37); BILIRUBIN,TOTAL 0.2 mg/dL (0.2-1.0); CALCIUM, SERUM 7.3 mg/dL (8.5-10.1); CHLORIDE 97 mmol/L (98-107); CREATININE 4.5 mg/dL (0.6-1.3); GLUCOSE 86 mg/dL (74-106); PHOSPHORUS 2.2 mg/dL (2.5-4.9); POTASSIUM 4.7 mmol/L (3.5-5.1); SODIUM SERUM 133 mmol/L (136-145); TOTAL PROTEIN, SERUM 5.3 g/dL (6.4-8.2); UREA NITROGEN, BLOOD 60 mg/dL (7-18)
[2019-10-18 10:54] LABS: ALBUMIN 1.3 g/dL (3.4-5.0); CARBON DIOXIDE 30 mmol/L (21-32); MAGNESIUM 2.5 mg/dL (1.8-2.4)
--- NOTE | 2019-10-18 11:00 | NUR ---
RN NOTES 0959: INFORMED DR. HENRIQUEZ THAT HGB AT 6.6 1100:RE INFORMED DR. HENRIQUEZ, THIS TIME MD ASKED IF WE COULD INFORM THE AND ASKED IF SHE WOULD WANT IT? CALLED AT THIS TIME BUT WAS NOT ABLE TO REACH HER AT THIS TIME. WILL TRY AGAIN IN A WHILE. CHARGE NURSE MADE AWARE
--- NOTE | 2019-10-18 12:30 | NUR ---
DON NOTES SPOKE TO JOSE (). DECLINED BLOOD TRANSFUSION PER THE SHE IS OKAY WITH MEDICATION ADMINISTRATION THOUGH Addendum: 10/18/19 at 1819 by HELLEN FERNANDEZ RN DR. HENRIQUEZ MADE AWARE OF THE 'S DECISION. Addendum: 10/18/19 at 1843 by HELLEN FERNANDEZ RN DON SOMMERS VERIFIED WITH THE DECLINATION OF BLOOD TRANSFUSION
[2019-10-18] MEDS: ALBUMIN 25% 25 GM in PREMIX 1 EA IV PRN (15:07)
--- NOTE | 2019-10-18 18:30 | NUR ---
RN NOTES DR. TORRES AT THE UNIT WITH ORDER FOR PRBC 1 UNIT.INFORMED HER THAT PATIENT'S REFUSED BLOOD TRANSFUSION
--- NOTE | 2019-10-18 19:41 | NUR ---
RN NOTES ENDORSED FOR CONTINUITY OF CARE. NOT ON ANY FORM OF DISTRESS. BREATHING UNLABORED. TOLERATING VENT SETTINGS. NO SHORTNESS OF BREATH. TOLERATING FEEDING WELL. ALL NURSING NEEDS ATTENDED AND MET. SAFETY MEASURES IN PLACE AT ALL TIMES. CALL LIGHT WITHIN REACH. ISOLATION PRECAUTION IMPLEMENTED AT ALL TIMES
--- NOTE | 2019-10-18 19:58 | NUR ---
RECEIVED PT ORALLY INTUBATED WITH 8.0 SECURED @ 24 CM LIP LINE ON VENT WITH NOTED SETTINGS . NO RESP DISTRESS NOTED. PT TOLERATING VENT SETTINGS. PT IS OBTUNDED. CUFF MARKLOGIC DEVELOPER, SX'D DONE PRN. VENT ALARMS SET AND AUDIBLE. AMBU BAG AT BEDSIDE. VENT PLUGGED INTO RED OUTLET. WILL CONTINUE TO MONITOR THE PT T/O SHIFT.
--- NOTE | 2019-10-18 21:00 | NUR ---
RN NOTE RECIEVED PT IN BED. NO SINGS OF DISTRESS OR DISCOMFORT. TOLERATING FEEDING AND VENT SETTINGS WELL. CALL LIGHT WITHIN REACH, SAFETY MEASURES IN PLACE. WILL MONITOR PT.
[2019-10-19] VITALS (36 sets, daily range): BP systolic 78–138; BP diastolic 38–64
[2019-10-19 04:36] LABS: BASOPHILS % (AUTO) 0.6 % (0.0-2.0); EOSINOPHILS % (AUTO) 0.4 % (0.0-6.0); LYMPHOCYTES # (AUTO) 0.3 /CMM (0.8-4.8); LYMPHOCYTES % (AUTO) 6.2 % (20.0-44.0); MEAN CORPUSCULAR HGB CONC 33 g/dl (31.0-36.0); MEAN CORPUSCULAR VOLUME 96 fL (80-96); MONOCYTES # (AUTO) 0.1 /CMM (0.1-1.30); MONOCYTES % (AUTO) 2.6 % (2.0-12.0); NEUTROPHILS % (AUTO) 90.2 % (43.0-81.0); PLATELET COUNT (AUTO) 141 /CMM (150-450); RED BLOOD CELL COUNT(AUTO) 2.05 MIL/uL (4.5-6.0); WHITE BLOOD COUNT (AUTO) 4.4 K/uL (4.3-11.0)
[2019-10-19] MEDS: BLOOD SUGAR DIAGNOSTIC 1 EACH STRIP IN SCH ×4 (05:14→23:42)
[2019-10-19 05:15] LABS: HEMATOCRIT 20 % (39-51); HEMOGLOBIN 6.6 g/dL (13.5-17.5)
--- NOTE | 2019-10-19 05:32 | NUR ---
RN NOTE RECEIVED ALERT FOR CRITICAL LAB VALUE HGB 6.6 AND HCT 20. NOTIFIED REEL CART OPERATOR VILMA ROGERRICHELLE WHO ORDERED TO TRANSFUSE 1 UNIT OF PRBCS. NOTIFIED REEL CART OPERATOR THAT AND DAUGHTER REFUSED AN ORDER FOR BLOOD TRANSFUSION YESTERDAY AND THAT THEY DID NOT PROVIDE CONSENT. REEL CART OPERATOR STATES TO CONTACT FAMILY AGAIN AND NOTIFY THEM FOR NEED OF TRANSFUSION. ATTEMPTED TO REACH . VOICEMAIL LEFT FOR CALL BACK. Addendum: 10/19/19 at 0542 by JUAN RAMSEY RN JOSE () [phone]
[2019-10-19 05:36] LABS: ALANINE AMINOTRANSFERASE 74 U/L (12-78); ALBUMIN 1.7 g/dL (3.4-5.0); ALKALINE PHOSPHATASE 91 U/L (46-116); ASPARTATE AMINOTRANSFERASE 186 U/L (15-37); BILIRUBIN,TOTAL 0.2 mg/dL (0.2-1.0); CALCIUM, SERUM 8.5 mg/dL (8.5-10.1); CARBON DIOXIDE 32 mmol/L (21-32); CHLORIDE 102 mmol/L (98-107); CREATININE 3.4 mg/dL (0.6-1.3); GLUCOSE 78 mg/dL (74-106); MAGNESIUM 2.5 mg/dL (1.8-2.4); PHOSPHORUS 2.3 mg/dL (2.5-4.9); POTASSIUM 4.3 mmol/L (3.5-5.1); SODIUM SERUM 138 mmol/L (136-145); TOTAL PROTEIN, SERUM 5.5 g/dL (6.4-8.2); UREA NITROGEN, BLOOD 40 mg/dL (7-18)
[2019-10-19 06:23] LABS: LYMPHOCYTES % (MANUAL) 5 % (16-48)
[2019-10-19 06:24] LABS: MONOCYTES % (MANUAL) 3 % (0-11.0); NEUTROPHILS % (MANUAL) 92 (42-76)
--- NOTE | 2019-10-19 07:18 | NUR ---
RN NOTE ENDORSED TO MORNING RN FOR CONTINUATION OF CARE.
[2019-10-19] MEDS: LEVOTHYROXINE SODIUM 75 MCG TABLET GT SCH (08:11)
[2019-10-19] MEDS: HYDROCORTISONE 20 MG TABLET GT SCH ×2 (08:11→17:04)
[2019-10-19] MEDS: VALPROIC ACID 250 MG/5 ML UDC GT SCH ×2 (08:11→21:32)
[2019-10-19] MEDS: PANTOPRAZOLE 40 MG VIAL IV SCH ×2 (08:11→16:38)
[2019-10-19] MEDS: SEVELAMER CARBONATE 0.8 GM POWD.PACK GT SCH ×3 (08:11→17:04)
[2019-10-19] MEDS: HYDROGEL DRESSING 90 GM TUBE TP SCH (08:12)
[2019-10-19] MEDS: METOPROLOL TARTRATE 50 MG TABLET GT SCH ×2 (08:12→21:00)
[2019-10-19] MEDS: NEOMY SULF/BACITRAC ZN/POLY 15 GM TUBE TP SCH (08:13)
[2019-10-19] MEDS: CLOTRIMAZOLE 1% 15 GM TUBE TP SCH ×3 (08:13→16:38)
--- NOTE | 2019-10-19 08:48 | NUR ---
received pt from sole assessor, obtunded, responds to pain stimuli, SR, on vent, intubated, lungs congested, pitting edema all extremities, NG to feeding tolerates well, HD patient, refused blood transfusion MD is aware, v/s stable, no pain, pt turned and repositioned.
[2019-10-19] MEDS ORDERED: NEUTRA PHOS 1 POWD.PACKET NG ONE (10:30)
--- NOTE | 2019-10-19 16:16 | NUR ---
pt is resting in the bed, obtunded, SR, intubated, sat well, tolerates feeding, one BM, v/s stable, no pain, pt cleaned, changed and repositioned q2hrs.
--- NOTE | 2019-10-19 19:29 | NUR ---
ICU/RN OPENING NOTE RECEIVED PATIENT INTUBATED ON VENTILATOR. PATIENT SHOWS NO SIGN OF ANY DISTRESS AND NO SIGN OF ANY SOB. RESPIRATIONS EVEN AND UNLABORED. SPO2 AT 98% VIA MECHANICAL VENTILATOR SETTINGS ORDERED. ETT 03/[address], SR 70 ON BEDSIDE MONITOR, LT NARE NG TUBE FEEDING PATENT AND INTACT WITH NO RESIDUAL AND NEPRO RUNNING AT 40ML/HR. RIGHT FEMORAL TRIPPLE LUMEN CAT PATENT WITH NO SIGN OF INFILTRATION. BED PLACED AT 30 DEGREE ANGLE. ALL SAFETY PRECAUTIONS APPLIED. WILL CONTINUE TO MONITOR PATIENT THROUGHOUT SHIFT.
--- NOTE | 2019-10-19 20:00 | NUR ---
RT NOTE PT RECEIVED ORALLY INTUBATED ON [facility] VENT. PATIENT IS TOLERATING CHARTED SETTINGS. NO SIGNS OF RESPIRATORY DISTRESS. AIRWAY PATENT AND SECURED. PROCEDURAL NURSE DONE. PT SUCTIONED. ALARMS SET AND AUDIBLE. AMBUBAG AT BESIDE. VENT CONNECTED TO RED OUTLET. WILL CONT TO MONITOR. Addendum: 10/19/19 at 2236 by KARTHIK DE PAZ RT Amended: Links added.
--- NOTE | 2019-10-19 21:33 | NUR ---
ICU/RN NOTE METROPOLOL SCHEDULED AT 2100 HELP DUE TP SBP AT 100.
[2019-10-20] VITALS (84 sets, daily range): BP systolic 71–147; BP diastolic 30–76
[2019-10-20] MEDS: BLOOD SUGAR DIAGNOSTIC 1 EACH STRIP IN SCH ×4 (06:09→23:06)
--- NOTE | 2019-10-20 07:04 | NUR ---
RN/ICU CLOSING PATIENT IN BED. TOLERATING VENT SETTINGS ORDERED. ETT 03/25. SATURATING AT 100%. NO SIGN OF ANY DISTRESS. HR AT 55 ON BEDSIDE MONITOR. NG TUBE FEEDINGS AT 40ML/HR. ALL SAFETY PRECAUTIONS APPLIED. ENDORSED PATIENT TO MORNING SHIFT NURSE FOR BROCK.
[2019-10-20] MEDS ORDERED: DOPamine 800 MG in IV D5W 250 ML IV PRN (07:30)
--- NOTE | 2019-10-20 07:34 | NUR ---
WOUND CARE CONSULT WOUND CARE RECEIVED CONSULT FOR NEW BLISTERS APPEARING IN MULTIPLE AREAS. PLASTIC SURGICAL TEAM CURRENTLY FOLLOWING THIS PATIENT. WOUND CARE WILL DEFER TO PLASTIC SURGICAL TEAM FOR CONSULT AND EVALUATION OF THE BLISTERS. WILL SEE PRN. Addendum: 10/20/19 at 0738 by MARSHALL RAY WNDNU SURGICAL TEAM HAS BEEN NOTIFIED OF THE CONSULT.
--- NOTE | 2019-10-20 08:35 | NUR ---
received pt from shift engineer, obtunded, responds to pain stimuli, SR, on the vent, intubated, sat well, pitting edema all extremities, NG to feeding tolerates well, HD pt, pt turned and repositioned. SBP 71- 73, HR 52-54, MD called, 500 bolus given, pt started on Dopamine.
[2019-10-20] MEDS: HYDROCORTISONE 20 MG TABLET GT SCH ×2 (08:48→17:07)
[2019-10-20] MEDS: PANTOPRAZOLE 40 MG VIAL IV SCH ×2 (08:48→17:07)
[2019-10-20] MEDS: METOPROLOL TARTRATE 50 MG TABLET GT SCH ×2 (08:49→21:00)
[2019-10-20] MEDS: SEVELAMER CARBONATE 0.8 GM POWD.PACK GT SCH ×3 (08:49→17:07)
[2019-10-20] MEDS: VALPROIC ACID 250 MG/5 ML UDC GT SCH ×2 (08:49→21:32)
[2019-10-20] MEDS: HYDROGEL DRESSING 90 GM TUBE TP SCH (08:50)
[2019-10-20] MEDS: NEOMY SULF/BACITRAC ZN/POLY 15 GM TUBE TP SCH (08:50)
[2019-10-20] MEDS: CLOTRIMAZOLE 1% 15 GM TUBE TP SCH ×3 (08:50→17:08)
[2019-10-20] MEDS: LEVOTHYROXINE SODIUM 75 MCG TABLET GT SCH (09:54)
[2019-10-20 10:26] LABS: BASOPHILS % (AUTO) 0.3 % (0.0-2.0); EOSINOPHILS % (AUTO) 0.3 % (0.0-6.0); HEMATOCRIT 22 % (39-51); HEMOGLOBIN 7.4 g/dL (13.5-17.5); LYMPHOCYTES # (AUTO) 0.4 /CMM (0.8-4.8); LYMPHOCYTES % (AUTO) 4.1 % (20.0-44.0); MEAN CORPUSCULAR HGB CONC 33 g/dl (31.0-36.0); MEAN CORPUSCULAR VOLUME 96 fL (80-96); MONOCYTES # (AUTO) 0.1 /CMM (0.1-1.30); MONOCYTES % (AUTO) 1.2 % (2.0-12.0); NEUTROPHILS # (AUTO) 9.3 /CMM (1.8-8.9); NEUTROPHILS % (AUTO) 94.1 % (43.0-81.0); PLATELET COUNT (AUTO) 100 /CMM (150-450); RED BLOOD CELL COUNT(AUTO) 2.32 MIL/uL (4.5-6.0); WHITE BLOOD COUNT (AUTO) 9.9 K/uL (4.3-11.0)
[2019-10-20 10:36] LABS: CALCIUM, SERUM 8.5 mg/dL (8.5-10.1); CARBON DIOXIDE 27 mmol/L (21-32); CHLORIDE 102 mmol/L (98-107); GLUCOSE 64 mg/dL (74-106); MAGNESIUM 2.6 mg/dL (1.8-2.4); PHOSPHORUS 2.6 mg/dL (2.5-4.9); POTASSIUM 4.1 mmol/L (3.5-5.1); SODIUM SERUM 136 mmol/L (136-145); UREA NITROGEN, BLOOD 54 mg/dL (7-18)
[2019-10-20] MEDS: ALBUMIN 25% 25 GM in PREMIX 1 EA IV PRN (10:36)
[2019-10-20] MEDS ORDERED: FEE PK DOSING 1 MIN EA MC ONE (10:59)
[2019-10-20] MEDS ORDERED: VANCOMYCIN 1 GM in IV D5W 250ml IV ONE (11:00)
[2019-10-20] MEDS: VANCOMYCIN HCL 125 MG/2.5 ML ORAL.SUSP NG SCH ×3 (12:47→23:06)
[2019-10-20] MEDS: NEPRO 1,000 ML BOTTLE GT PRN (12:58)
[2019-10-20] MEDS: CEFEPIME 1 GM in IV D5W 50 ML IV SCH (13:38)
--- NOTE | 2019-10-20 14:15 | NUR ---
BROADCAST JOURNALIST received a f/u call from APS SW Chelsey Kirby regarding APS report BROADCAST JOURNALIST had filed against pt's Sanjeev. BROADCAST JOURNALIST provided 's phone number per APS SW request.
[2019-10-20] MEDS: PHENYLEPHRINE 100 MG in IV NS 0.9% 240 ML IV PRN (14:46)
--- NOTE | 2019-10-20 16:18 | NUR ---
pt is resting in the bed, obtunded, SR, off of dopamine, started on paxton per Dr Devine, sat well, tolerated feeding, HD done - cleaning only, v/s stable, no pain, pt cleaned, changed and repositioned q2hrs.
[2019-10-20] MEDS: CLOTRIMAZOLE/BETAMETASONE DIPROPIONATE 15 GM TUBE TP SCH ×2 (16:23→17:08)
--- NOTE | 2019-10-20 17:33 | NUR ---
RT NOTE: PATIENT RECEIVED ORALLY INTUBATED WITH 8.0 ETT SECURED AT 24CM MID LIP LINE ON MECHANICAL VENT. ALARMS VERIFIED AND AUDIBLE. VENT PLUGGED INTO RED OUTLET. AMBU BAG @ [facility].
--- NOTE | 2019-10-20 19:25 | NUR ---
RESIDENT HALL DIRECTOR RECEIVED PATIENT W/DX RESP FAIL; INTUBATED 8 @ 24 AC 12 450 30%. RESPIRATIONS EVEN AND UNLABORED; RENDERED ORAL CARE; BLOOD TINGE SECRETIONS NOTED. SR 70 ON BEDSIDE MONITOR, LT NARE NG TUBE FEEDING PATENT AND INTACT WITH NO RESIDUAL AND NEPRO RUNNING AT 50ML/HR. RIGHT FEMORAL TLC PATENT W/GOOD BLOOD RETURN. CASSIE @ 1 MCG/KG/MIN TO MAINTAIN SBP >90.
--- NOTE | 2019-10-20 19:47 | NUR ---
RT NOTES PT RECEIVED ORALLY INTUBATED ON [facility] VENT ON CHARTED SETTINGS. NO SIGNS OF RESP DISTRESS/SOB NOTED. AIRWAY PATENT AND SECURED. MANAGER REPORTING DONE. PT SUCTIONED. ALARMS SET AND AUDIBLE. AMBUBAG AT BEDSIDE. VENT CONT TO RED OUTLET. WILL CONT TO MONITOR. Addendum: 10/20/19 at 2021 by MARILIN HENRY RT Amended: Links added.
--- NOTE | 2019-10-20 23:10 | NUR ---
CONGRESSIONAL DISTRICT AIDE BLOOD GLUCOSE 85; NO COVERAGE NEEDED AT THIS TIME. CONTINUE TO MONITOR.
[2019-10-21] VITALS (88 sets, daily range): BP systolic 85–148; BP diastolic 38–69
[2019-10-21] MEDS: CLOTRIMAZOLE 1% 15 GM TUBE TP SCH ×3 (01:25→17:56)
[2019-10-21] MEDS: Z GUARD REMEDY 2 OZ OINT TP PRN (01:26)
--- NOTE | 2019-10-21 04:37 | NUR ---
SOFTWARE TEST ANALYST UNABLE TO TITRATE CASSIE BELOW 0.5 MCG/KG/MIN SNP DROPS TO 80s; CONTINUE TO MONITOR. Addendum: 10/21/19 at 0438 by SOLE VERDUZCO RN SBP
[2019-10-21 05:33] LABS: BASOPHILS % (AUTO) 0.1 % (0.0-2.0); EOSINOPHILS % (AUTO) 0.2 % (0.0-6.0); LYMPHOCYTES # (AUTO) 0.6 /CMM (0.8-4.8); LYMPHOCYTES % (AUTO) 5.1 % (20.0-44.0); MEAN CORPUSCULAR HGB CONC 33 g/dl (31.0-36.0); MEAN CORPUSCULAR VOLUME 96 fL (80-96); MONOCYTES # (AUTO) 0.2 /CMM (0.1-1.30); MONOCYTES % (AUTO) 1.3 % (2.0-12.0); NEUTROPHILS # (AUTO) 10.9 /CMM (1.8-8.9); NEUTROPHILS % (AUTO) 93.3 % (43.0-81.0); PLATELET COUNT (AUTO) 69 /CMM (150-450); WHITE BLOOD COUNT (AUTO) 11.7 K/uL (4.3-11.0)
[2019-10-21 05:54] LABS: HEMATOCRIT 20 % (39-51); HEMOGLOBIN 6.6 g/dL (13.5-17.5)
[2019-10-21] MEDS ORDERED: VANCOMYCIN POST DIALYSIS 500MG IV PRN ×2 (06:00)
--- NOTE | 2019-10-21 06:00 | NUR ---
DENTAL OFFICE COORDINATOR PT WITH HG 6.6 NNO PTS REFUSES TO GIVE CONSENT FOR BLOOD TRANSFUSION. CONTINUE TO MONITOR.
[2019-10-21] MEDS: BLOOD SUGAR DIAGNOSTIC 1 EACH STRIP IN SCH ×4 (06:06→23:58)
[2019-10-21] MEDS: VANCOMYCIN HCL 125 MG/2.5 ML ORAL.SUSP NG SCH ×4 (06:06→23:58)
[2019-10-21 06:09] LABS: CARBON DIOXIDE 28 mmol/L (21-32); CHLORIDE 105 mmol/L (98-107); GLUCOSE 86 mg/dL (74-106); MAGNESIUM 2.4 mg/dL (1.8-2.4); POTASSIUM 4.4 mmol/L (3.5-5.1); SODIUM SERUM 140 mmol/L (136-145)
[2019-10-21 06:11] LABS: CALCIUM, SERUM 8.3 mg/dL (8.5-10.1)
[2019-10-21 06:12] LABS: CREATININE 3.1 mg/dL (0.6-1.3); PHOSPHORUS 2.3 mg/dL (2.5-4.9); UREA NITROGEN, BLOOD 42 mg/dL (7-18)
[2019-10-21 06:28] LABS: BAND % (MANUAL) 23 % (0.0-5.0); LYMPHOCYTES % (MANUAL) 2 % (16-48); METAMYELOCYTES % 1 % (0-0); MONOCYTES % (MANUAL) 2 % (0-11.0); MYELOCYTES % 1 % (0-0); NEUTROPHILS % (MANUAL) 71 (42-76)
[2019-10-21] MEDS: SEVELAMER CARBONATE 0.8 GM POWD.PACK GT SCH ×3 (08:00→17:56)
[2019-10-21] MEDS: HYDROCORTISONE 20 MG TABLET GT SCH ×2 (08:12→17:55)
[2019-10-21] MEDS: LEVOTHYROXINE SODIUM 75 MCG TABLET GT SCH (08:12)
[2019-10-21] MEDS: PANTOPRAZOLE 40 MG VIAL IV SCH ×2 (08:12→17:56)
[2019-10-21] MEDS: VALPROIC ACID 250 MG/5 ML UDC GT SCH ×2 (08:12→21:42)
[2019-10-21] MEDS: METOPROLOL TARTRATE 50 MG TABLET GT SCH ×2 (08:13→21:00)
[2019-10-21] MEDS: HYDROGEL DRESSING 90 GM TUBE TP SCH (08:13)
[2019-10-21] MEDS: CLOTRIMAZOLE/BETAMETASONE DIPROPIONATE 15 GM TUBE TP SCH ×3 (08:14→17:56)
[2019-10-21] MEDS: NEOMY SULF/BACITRAC ZN/POLY 15 GM TUBE TP SCH (08:14)
--- NOTE | 2019-10-21 09:19 | NUR ---
received pt from shift manager, obtunded, responds to pain stimuli, SR 1 degree AV block, intubated, sat well, NG to feeding tolerates well, HD patient, receiving paxton at 0.5 mcg, v/s stable, no pain, pt turned and repositioned.
[2019-10-21] MEDS: CEFEPIME 1 GM in IV D5W 50 ML IV SCH (12:31)
[2019-10-21] MEDS: NEPRO 1,000 ML BOTTLE GT PRN (14:24)
[2019-10-21] MEDS: PHENYLEPHRINE 100 MG in IV NS 0.9% 240 ML IV PRN (15:35)
--- NOTE | 2019-10-21 16:42 | NUR ---
pt is resting in the bed, obtunded, SR, receiving paxton at 0.7mcg, tolerates feeding, HD patient, v/s stable, no pain, pt cleaned, changed and repositioned.
--- NOTE | 2019-10-21 19:25 | NUR ---
RECEIVING BARN CUSTODIAN RECEIVED PATIENT W/DX RESP FAIL; INTUBATED 8 @ 24 AC 12 450 30%. RESPIRATIONS EVEN AND UNLABORED; RENDERED ORAL CARE; BLOOD TINGE SECRETIONS NOTED. SR 70 ON BEDSIDE MONITOR, LT NARE NG TUBE FEEDING PATENT AND INTACT WITH NO RESIDUAL AND NEPRO RUNNING AT 50ML/HR. RIGHT FEMORAL TLC PATENT W/GOOD BLOOD RETURN. CASSIE @ 0.6 MCG/KG/MIN TO MAINTAIN SBP >90.
[2019-10-22] VITALS (89 sets, daily range): BP systolic 60–164; BP diastolic 32–103
[2019-10-22 05:23] LABS: BASOPHILS % (AUTO) 0.2 % (0.0-2.0); EOSINOPHILS % (AUTO) 0.5 % (0.0-6.0); LYMPHOCYTES # (AUTO) 0.5 /CMM (0.8-4.8); LYMPHOCYTES % (AUTO) 7.5 % (20.0-44.0); MEAN CORPUSCULAR HGB CONC 34 g/dl (31.0-36.0); MEAN CORPUSCULAR VOLUME 96 fL (80-96); MONOCYTES # (AUTO) 0.1 /CMM (0.1-1.30); MONOCYTES % (AUTO) 1.4 % (2.0-12.0); NEUTROPHILS # (AUTO) 6.1 /CMM (1.8-8.9); NEUTROPHILS % (AUTO) 90.4 % (43.0-81.0); WHITE BLOOD COUNT (AUTO) 6.7 K/uL (4.3-11.0)
[2019-10-22 05:36] LABS: HEMATOCRIT 18 % (39-51); HEMOGLOBIN 6.2 g/dL (13.5-17.5); PLATELET COUNT (AUTO) 55 /CMM (150-450)
--- NOTE | 2019-10-22 05:42 | NUR ---
AIR TUCKER PT W/CRITICAL LAB VALUES HG 6.2 AND PLATELETS 55; NOTIFIED SKI MOLDER HOWEVER PTS REFUSES TO GIVE CONSENT FOR BLOOD TRANSFUSION. CONTINUE TO MONITOR.
[2019-10-22 05:44] LABS: CALCIUM, SERUM 8.2 mg/dL (8.5-10.1); CARBON DIOXIDE 29 mmol/L (21-32); CHLORIDE 104 mmol/L (98-107); CREATININE 3.6 mg/dL (0.6-1.3); GLUCOSE 92 mg/dL (74-106); POTASSIUM 4.1 mmol/L (3.5-5.1); SODIUM SERUM 139 mmol/L (136-145); UREA NITROGEN, BLOOD 50 mg/dL (7-18)
[2019-10-22] MEDS: BLOOD SUGAR DIAGNOSTIC 1 EACH STRIP IN SCH ×3 (05:55→18:12)
[2019-10-22] MEDS: VANCOMYCIN HCL 125 MG/2.5 ML ORAL.SUSP NG SCH ×3 (05:55→18:10)
--- NOTE | 2019-10-22 06:21 | NUR ---
ANCHOR FAST CHANGED.
--- NOTE | 2019-10-22 07:30 | NUR ---
VALET Notes Received patient in bed from police shift commander. Patient has ET tube 8 size 24cm at the lip. On assist control, TV 450, PEEP 0. Obtunded. Patient is decerebrate in positioning. Sluggish pupil reflex. 2-3mm. BM x1 when checking diaper. Small amount of stool, pasty consistency. No urine. +3 pitting edema in hands, +3 tibial edema. Skin is not intact. Sacral redness and excoriation noted. Cleaned and covered with z guard and clotrimazole. Tube feeding nephro 50mL per hour. No residuals. Flushed and unclogged NGT. Subclavian cath for dialysis on r subclavian. R femoral 3 lumin 3mL NS TKO. Neosynephrine running at 1.5 to be titrated for BP. Accu check to be done at 1200. DNR pending family meeting.
--- NOTE | 2019-10-22 08:20 | NUR ---
MANIFEST CLERK NOTES RECIEVED PATIENT, BP 75/40 P.81 . PATIENT IS ON NEOSYNEPHRINE DRIP. TITRATED UP TO 1.5MCG NEOSYNEPHRINE TO MANAGE HYPOTENSION. PATIENT PLACED IN TRANDELENBURG POSITION. FEEDING TO BE STOPPED AND STARTED WHEN APPROPRIATE. CONTACTING MD.
--- NOTE | 2019-10-22 08:40 | NUR ---
ECONOMIC RESEARCH ASSISTANT NOTES PERSONNEL RECORDS CLERK NOTIFIED OF HYPOTENSION. NO NEW ORDERS RECEIVED AT THIS TIME. BP AT THIS TIME IS 81/46 WITH NEW ADJUSTMENT OF NORSYNEPHRINE.
--- NOTE | 2019-10-22 08:55 | NUR ---
BICYCLE I ASSEMBLER NOTES BP NOW 105/53 P.92
[2019-10-22] MEDS: METOPROLOL TARTRATE 50 MG TABLET GT SCH ×2 (09:00→21:00)
[2019-10-22] MEDS: CLOTRIMAZOLE 1% 15 GM TUBE TP SCH ×3 (09:00→16:56)
[2019-10-22] MEDS: CLOTRIMAZOLE/BETAMETASONE DIPROPIONATE 15 GM TUBE TP SCH ×3 (09:00→16:56)
--- NOTE | 2019-10-22 09:00 | NUR ---
UTILIZATION REVIEWER Note Dialysis nurse at bedside, HD started. Will continue to monitor.
--- NOTE | 2019-10-22 09:45 | NUR ---
ASSISTANT BOYS TRACK COACH Notes BP again low 62/38. Neosyneprine increased per protocol to 1.6.
[2019-10-22] MEDS: LEVOTHYROXINE SODIUM 75 MCG TABLET GT SCH (10:15)
[2019-10-22] MEDS: VALPROIC ACID 250 MG/5 ML UDC GT SCH ×2 (10:15→21:45)
[2019-10-22] MEDS: PANTOPRAZOLE 40 MG VIAL IV SCH ×2 (10:16→16:55)
[2019-10-22] MEDS: HYDROGEL DRESSING 90 GM TUBE TP SCH (10:17)
[2019-10-22] MEDS: NEOMY SULF/BACITRAC ZN/POLY 15 GM TUBE TP SCH (10:17)
[2019-10-22] MEDS: HYDROCORTISONE 20 MG TABLET GT SCH ×2 (10:18→18:10)
[2019-10-22] MEDS: SEVELAMER CARBONATE 0.8 GM POWD.PACK GT SCH ×3 (10:18→18:10)
--- NOTE | 2019-10-22 10:22 | NUR ---
LOCKSTITCH TUNNEL ELASTIC OPERATOR Notes Called pharmacy. No lobetasol or lotramin in casette. Will apply when it is delivered.
--- NOTE | 2019-10-22 10:27 | NUR ---
DANCE TEACHER notes Neosynephrine is running now 2.0mcg. BP now 68/41. Dr. Melo gave instructions to maintain SBP greater then 90.
--- NOTE | 2019-10-22 10:37 | NUR ---
PLASTERER SPOT Notes BP now 115/56 P.96 no other s/s of distress at this time. Will continue to monitor. BP now 115/56.
--- NOTE | 2019-10-22 12:00 | NUR ---
LEFT MESSAGE TO PATIENT RE: MEETING WITH MD'S ON WEDNESDAY(10/21) . AWAITING TO RETURN CALL.
[2019-10-22] MEDS: CEFEPIME 1 GM in IV D5W 50 ML IV SCH (13:39)
[2019-10-22] MEDS: DEXTROSE 50%-WATER 50 ML DISP.SYRIN IV PRN (13:40)
[2019-10-22] MEDS: NEPRO 1,000 ML BOTTLE GT PRN (17:11)
--- NOTE | 2019-10-22 19:30 | NUR ---
Closing Notes ICU Patient has ET tube 8 size 24cm at the lip. On assist control, TV 450, PEEP 0. Obtunded. Patient is decerebrate in positioning. Sluggish pupil reflex. 2-3mm. BM x2 total on shift. First BM was pasty in consistency while second was copious, malodorous, and liquidly. No urine. +3 pitting edema in hands, +3 tibial edema. Skin is not intact. Sacral redness and excoriation noted. Skin tear on scrotum covered with xeroform as ordered. Folds treated with lobatasol as ordered. Toe bandaged with hydrogel, covered with mepilex. Cleaned and covered with z guard and clotrimazole. Tube feeding nephro 50mL per hour. No residuals. Flushed and unclogged NGT earlier in shift. Fresh tubing and Nephro hung. Subclavian cath for dialysis on r subclavian. R femoral 3 lumin 3mL NS TKO. Neosynephrine running at 3.0 to be titrated for BP. Accu check done at 1200, 59mg dL D50% given with effective relief of hypoglycemia. 1800 finger stick 72mg/dL. DNR pending family meeting for options. Bed in lowest position, call light within reach, all measures taken to ensure client safety. Care to be endorsed to senior wind energy consultant till AM.
--- NOTE | 2019-10-22 20:15 | NUR ---
SOLDERING MACHINE TENDER PT NOTED TO BE AFIB ON MONITOR HR 108 BP 80/39. CONTACTED KAM CHOE.
[2019-10-22] MEDS ORDERED: PHENYLEPHRINE 10 MG/ML VIAL ONE (20:37)
[2019-10-22] MEDS: PHENYLEPHRINE 100 MG in IV NS 0.9% 240 ML IV PRN (20:46)
--- NOTE | 2019-10-22 21:25 | NUR ---
TRADEMARK PARALEGAL PT WITH INCREASED HR AFIB ON MONITOR. MAXED OUT ON CASSIE @ 3 MCG/KG/MIN. RCD ORDERS FROM KAM TO GIVE ALBUMIN STAT AND BEGIN LEVOPHED. ONCE BP STABILIZES CALL FOR POSSIBLE AMIO DRIP. CONTINUE TO MONITOR.
[2019-10-22] MEDS ORDERED: NOREPINEPHRINE 32 MG in IV NS 0.9% 218 ML IV PRN (21:30)
[2019-10-22] MEDS ORDERED: ALBUMIN 5% 25 GM in PREMIX 1 EA IV ONE (21:30)
[2019-10-22] MEDS ORDERED: NOREPINEPHRINE 4 MG/4 ML AMPUL IV ONE (21:31)
[2019-10-22] MEDS ORDERED: ALBUMIN 5% 500 ML IV ONE (21:44)
--- NOTE | 2019-10-22 23:00 | NUR ---
SECOND HAND PAPER MACHINE BP WNL; PER WILSTEIN TITRATE PRESSORS DOWN VERY CAUTIOUSLY.
--- NOTE | 2019-10-22 23:25 | NUR ---
SOCIAL WORKER CLINICAL PT JOSE RETURNED CALL AT THIS TIME; UPDATED ON PTS CONDITION NEEDING ADDITIONAL MEDICATIONS FOR BP SUPPORT AND PT MIGHT NOT SURVIVE THE NIGHT. PT DECLINED TO COME TO HOSPITAL AT THIS TIME. PER SHE HAS TOO MANY APPOINTMENTS TO ATTEND ANY MEETINGS WITH THE DOCTOR THIS WEEK. SHE WILL CALL BACK IF SHE IS ABLE TO CHANGE ANY APPOINTMENTS.
[2019-10-23] VITALS (61 sets, daily range): BP systolic 88–149; BP diastolic 38–102
[2019-10-23] MEDS: VANCOMYCIN HCL 125 MG/2.5 ML ORAL.SUSP NG SCH ×4 (00:55→17:15)
[2019-10-23] MEDS: BLOOD SUGAR DIAGNOSTIC 1 EACH STRIP IN SCH ×4 (00:56→17:16)
[2019-10-23 05:16] LABS: BASOPHILS % (AUTO) 0.2 % (0.0-2.0); EOSINOPHILS % (AUTO) 0.3 % (0.0-6.0); LYMPHOCYTES # (AUTO) 0.9 /CMM (0.8-4.8); LYMPHOCYTES % (AUTO) 10.1 % (20.0-44.0); MEAN CORPUSCULAR HGB CONC 33 g/dl (31.0-36.0); MEAN CORPUSCULAR VOLUME 96 fL (80-96); MONOCYTES # (AUTO) 0.2 /CMM (0.1-1.30); NEUTROPHILS # (AUTO) 7.8 /CMM (1.8-8.9); NEUTROPHILS % (AUTO) 87.4 % (43.0-81.0); WHITE BLOOD COUNT (AUTO) 8.9 K/uL (4.3-11.0)
[2019-10-23 05:27] LABS: HEMATOCRIT 19 % (39-51); HEMOGLOBIN 6.1 g/dL (13.5-17.5); PLATELET COUNT (AUTO) 45 /CMM (150-450); RED BLOOD CELL COUNT(AUTO) 1.93 MIL/uL (4.5-6.0)
[2019-10-23 05:35] LABS: CALCIUM, SERUM 8.2 mg/dL (8.5-10.1); CARBON DIOXIDE 28 mmol/L (21-32); CHLORIDE 101 mmol/L (98-107); CREATININE 3.2 mg/dL (0.6-1.3); GLUCOSE 100 mg/dL (74-106); POTASSIUM 4.7 mmol/L (3.5-5.1); SODIUM SERUM 136 mmol/L (136-145); UREA NITROGEN, BLOOD 46 mg/dL (7-18)
[2019-10-23 06:07] LABS: BAND % (MANUAL) 22 % (0.0-5.0); LYMPHOCYTES % (MANUAL) 8 % (16-48); MONOCYTES % (MANUAL) 1 % (0-11.0); NEUTROPHILS % (MANUAL) 69 (42-76)
--- NOTE | 2019-10-23 07:30 | NUR ---
RN OPENING NOTES RECEIVED PATIENT FROM PM NURSE. PT IS OBTUNDED ON MECHANICAL VENTILATOR WITH SETTINGS ORDERED. TOLERATING VENT WELL, NO SOB NOTED, SATURATING WELL WITH CURRENT SETTINGS. PATIENT IS ON TELE MONITOR NOTED WITH SINUS TACHY. ON CASSIE PRESSOR AT 1.2 TOLERATING WELL, BP WNL. NO ACUTE DISTRESS NOTED. TUBE FEEDING RUNNING NEPRO, TOLERATING WELL, NO RESIDUAL NOTED. NGT PLACEMENT CHECKED VIA AUSCULTATION. HEMOGLOBIN LEVELS ARE LOW, MD IS AWARE, FAMILY IS NOT GIVING CONSENT TO TRANSFUSE BLOOD. PATIENT CONDITION DETERIORATED DURING THE NIGHT, WAS CALLED IN TO COME DISCUSS THE PLAN OF CARE FOR THE PATIENT, STATES "i AM BUSY WITH APPOINTMENTS RIGHT NOW." PATIENT SAFETY MAINTAINED, CALL LIGHT WITHIN REACH, WILL CONTINUE TO MONITOR.
--- NOTE | 2019-10-23 08:21 | NUR ---
COLLECTIONS CLERK was informed by Dr. Coleman regarding scheduling an urgent meeting with pt's for today 1:30Pm per Dr. Melo. SW called pt's Rhina and left a voicemail message requesting a call back and the urgency in the matter.
[2019-10-23] MEDS: METOPROLOL TARTRATE 50 MG TABLET GT SCH ×2 (09:00→20:38)
[2019-10-23] MEDS: SEVELAMER CARBONATE 0.8 GM POWD.PACK GT SCH ×3 (09:13→17:15)
[2019-10-23] MEDS: LEVOTHYROXINE SODIUM 75 MCG TABLET GT SCH (09:13)
[2019-10-23] MEDS: HYDROCORTISONE 20 MG TABLET GT SCH ×2 (09:14→17:15)
[2019-10-23] MEDS: VALPROIC ACID 250 MG/5 ML UDC GT SCH ×2 (09:14→20:37)
[2019-10-23] MEDS: PANTOPRAZOLE 40 MG VIAL IV SCH ×2 (09:15→17:15)
[2019-10-23] MEDS: CLOTRIMAZOLE/BETAMETASONE DIPROPIONATE 15 GM TUBE TP SCH ×3 (09:17→17:16)
[2019-10-23] MEDS: NEOMY SULF/BACITRAC ZN/POLY 15 GM TUBE TP SCH (09:17)
[2019-10-23] MEDS: HYDROGEL DRESSING 90 GM TUBE TP SCH (09:17)
[2019-10-23] MEDS: CLOTRIMAZOLE 1% 15 GM TUBE TP SCH ×3 (09:18→17:16)
--- NOTE | 2019-10-23 11:00 | NUR ---
RN NOTE ASSESSED PATIENTS WOUNDS WITH JONES. PER MD, THE SACRUM WOUND IS LOOKING WORSE. INCIDENT REPORT WILL BE FILLED. WOUND CONSULT IS REQUESTED. INSURANCE OPERATIONS REP IS AWARE. WOUND TREATMENT RENDERED ORDERED. SAFETY MAINTAINED, CALL LIGHT WITHIN REACH. WILL CONTINUE TO MONITOR.
[2019-10-23] MEDS ORDERED: NOREPINEPHRINE 8 MG in IV NS 0.9% 242 ML IV PRN (11:30)
--- NOTE | 2019-10-23 12:14 | NUR ---
KEY PUNCH TEACHER contacted APS JOHN Montejoine Mirta to inquire if she was able to reach pt's Sanjeev on Wednesday. Per APS JOHN, she called and left a message for the , however she did not call back. APS JOHN to call again and f/u with KEY PUNCH TEACHER.
[2019-10-23] MEDS: CEFEPIME 1 GM in IV D5W 50 ML IV SCH (12:30)
[2019-10-23] MEDS: PHENYLEPHRINE 100 MG in IV NS 0.9% 240 ML IV PRN (13:00)
[2019-10-23] MEDS: NEPRO 1,000 ML BOTTLE GT PRN (15:27)
--- NOTE | 2019-10-23 18:58 | NUR ---
RNCLOSING NOTES PATIENTS RESPIRATORY RATE HAS INCREASED. VENT SETTINGS HAVE BEEN ADJUSTED AND O2 INCREASED TO 60%. WAS ABLE TO DECREASE CASSIE PRESSOR TO 1MCG/KG, PATIENT TOLERATING WELL, BP IS MAINTAINED AT ORDERED RATE. TUBE FEEDING REMAINED RUNNING AT ORDERED RATE, PATIENT TOLERATING WELL. NO RESIDUAL NOTED. NGT INTACT, PATENT, PLACEMENT CHECKED VIA AUSCULTATION. DID NOT SHOW UP TO TODAYS SCHEDULED MEETING, CLAIMED TO BE BUSY WITH APPOINTMENTS. PATIENT SAFETY IS MAINTAINED, CALL LIGHT WITHIN REACH, ENDORSED TO PM NURSE TO CONTINUE CARE.
--- NOTE | 2019-10-23 20:09 | NUR ---
I CALLED JOSE ESPITIA REGARDING HER . NO ANSWER. I LEFT A VOICEMAIL TO CALL BACK TO THE HOSPITAL.
--- NOTE | 2019-10-23 20:37 | NUR ---
report given to jadyn edouard for continuity of care
[2019-10-24] VITALS (45 sets, daily range): BP systolic 59–118; BP diastolic 26–57
[2019-10-24] MEDS: VANCOMYCIN HCL 125 MG/2.5 ML ORAL.SUSP NG SCH (00:23)
[2019-10-24] MEDS: BLOOD SUGAR DIAGNOSTIC 1 EACH STRIP IN SCH (00:23)
[2019-10-24] MEDS: NEPRO 1,000 ML BOTTLE GT PRN (04:39)
[2019-10-24 05:13] LABS: BASOPHILS % (AUTO) 0.2 % (0.0-2.0); EOSINOPHILS % (AUTO) 0.3 % (0.0-6.0); LYMPHOCYTES # (AUTO) 0.7 /CMM (0.8-4.8); LYMPHOCYTES % (AUTO) 7.8 % (20.0-44.0); MEAN CORPUSCULAR HGB CONC 34 g/dl (31.0-36.0); MEAN CORPUSCULAR VOLUME 98 fL (80-96); MONOCYTES # (AUTO) 0.1 /CMM (0.1-1.30); MONOCYTES % (AUTO) 1.4 % (2.0-12.0); NEUTROPHILS # (AUTO) 8.1 /CMM (1.8-8.9); NEUTROPHILS % (AUTO) 90.3 % (43.0-81.0); WHITE BLOOD COUNT (AUTO) 8.9 K/uL (4.3-11.0)
[2019-10-24 05:39] LABS: CALCIUM, SERUM 8.2 mg/dL (8.5-10.1); CARBON DIOXIDE 27 mmol/L (21-32); CHLORIDE 101 mmol/L (98-107); CREATININE 3.4 mg/dL (0.6-1.3); GLUCOSE 76 mg/dL (74-106); POTASSIUM 5.2 mmol/L (3.5-5.1); SODIUM SERUM 133 mmol/L (136-145); UREA NITROGEN, BLOOD 57 mg/dL (7-18)
[2019-10-24 05:42] LABS: RED BLOOD CELL COUNT(AUTO) 1.62 MIL/uL (4.5-6.0)
[2019-10-24 05:43] LABS: HEMATOCRIT 16 % (39-51); HEMOGLOBIN 5.3 g/dL (13.5-17.5)
[2019-10-24 05:44] LABS: PLATELET COUNT (AUTO) 30 /CMM (150-450)
[2019-10-24 06:12] LABS: BAND % (MANUAL) 31 % (0.0-5.0); LYMPHOCYTES % (MANUAL) 11 % (16-48); MONOCYTES % (MANUAL) 2 % (0-11.0); NEUTROPHILS % (MANUAL) 56 (42-76)
--- NOTE | 2019-10-24 06:45 | NUR ---
SPECIAL AGENT [employer] NOTE PT REMAINED STABLE DURING SHIFT. NO DISTRESS NOTED. VENT SETTINGS TOLERATED. ALL NEEDS ATTENDED TO PROMPTLY. ISOLATION PRECAUTIONS MAINTAINED. DR. TORRES AT BEDSIDE AND DISCONTINUED CASSIE DRIP. WILL ENDORSE TO NEXT SHIFT FOR CONTINUITY OF CARE.
--- NOTE | 2019-10-24 08:30 | NUR ---
RN NOTE SHEAR OPERATOR DACIA NOTIFIED ABOUT PT STATUS, THAT PRESSORS AND OTHER MEDS HAS BEEN D/C'ed PER DR TORRES, PT DNR, PER CREDIT PRODUCT ANALYST NURSE CALLED THIS AM AND TOLD "LET THE GOD TAKE CARE OF IT". SBP IN 70S MMHG. NO ORDER TO EXTUBATE OR COMFORT MEASURES YET.
[2019-10-24] MEDS: VALPROIC ACID 250 MG/5 ML UDC GT SCH ×2 (08:50→21:27)
--- NOTE | 2019-10-24 13:49 | NUR ---
RN NOTE PER ACROBATIC RIGGER DACIA NO NEW ORDERS, NO TREATMENT, AWARE THAT PT IS OFF PRESSORS. SBP IN 60S MMHG.
[2019-10-24] MEDS: EPOETIN ALFA (10,000 UNIT) 10,000 UNIT/ML VIAL IV ONE ×2 (15:49→17:07)
--- NOTE | 2019-10-24 17:52 | NUR ---
rn note pt was unable to have hd due to low bp and being off Neosynephrine, no treatment. dr Neville aware, and JIMBO Thomason RN aware as well.
--- NOTE | 2019-10-24 18:35 | NUR ---
RT end of the shift report. pt. 74 Y old male rec. @0700 AM none responsive, orally intubated ETT # 8.0 @ 24 cm lip line on vent with noted settings, alarms are set and functional. equal chest rise noted. bilaterally rales b/s noted. sux'd for minimal amt. castro secretions. no vent changes t/o shift. BRUSH MACHINE SETTER done, HME changed, pt. remain stable. vent plugged into red out let and AMBU bag remain at the bedside. report will pass to PM shift. Addendum: 10/24/19 at 1836 by TATIANNA BELL RT Amended: Links added.
--- NOTE | 2019-10-24 20:00 | NUR ---
RN OPENING NOTES: PATIENT IS OBTUNDED, STILL INTUBATED AND ON MECHANICAL VENT, TOLERATING CURRENT SETTINGS AT THIS TIME. NO RESPIRATORY DISTRESS. O2 SAT 95-99%. NO S/S OF PAIN. NO FACIAL GRIMACING. PER AM SHIFT NURSE, PATIENT NOW OFF PRESSORS ORDERED BY DR. TORRES, SBP HAS BEEN IN 60s MMHG, AND NO FURTHER TREATMENT PER DAIJA PEDERSON. AUTOPSY PATHOLOGIST CHARGE NURSE AWARE. PATIENT REMAINS DNR. STILL ON NGT FEEDING, TOLERATING WELL, MINIMAL RESIDUAL. HOB ELEVATED. WILL TURN AND REPOSITION Q2H. SAFETY PRECAUTIONS IMPLEMENTED. BED LOCKED AND LOW POSITION. WILL CONT. TO MONITOR.
[2019-10-25] VITALS: BP 57/31
[2019-10-25 01:00] VITALS: BP 41/24
--- NOTE | 2019-10-25 01:10 | NUR ---
RN NOTE: PATIENT DECLINING AT THIS TIME. SBP AND HR IN 40s. PATIENT REMAINS DNR. CHARGE NURSE AWARE. Addendum: 10/25/19 at 012 by FRANDY LESTER RN AT 012, CALLED JOSE () TO UPDATE PATIENT'S STATUS. NO CALL BACK YET. Addendum: 10/25/19 at 030 by FRANDY LESTER RN 0110: TURNED OFF PATIENT'S GT FEEDING.
--- NOTE | 2019-10-25 01:23 | NUR ---
Called to patient room to assess patient .Noted no respiration,tele monitoring shows asystole in 3 leads.No heartbeat on auscultation.No palpable pulse.Pupils fixed and dilated.Unresponsive to noxious stimuli.Above signs not compatible for life.Pronounce .
--- NOTE | 2019-10-25 01:43 | NUR ---
RN NOTE: CALLED [facility], SPOKE WITH DONA BELCHER. PER DONA, PATIENT IS NOT ELIGIBLE FOR DONATION. CASE #: [id number].
--- NOTE | 2019-10-25 02:00 | NUR ---
RN NOTE: POST-MORTEM CARE DONE. PATIENT BELONGINGS KEPT WITH THE BODY. Addendum: 10/25/19 at 228 by FRANDY LESTER RN NURSING CLINICAL DATA ASSISTANT, DR. DELGADILLO, AND DR. HIRAM RAPP NOTIFIED. Addendum: 10/25/19 at 303 by FRANDY LESTER RN 228: CALLED [facility] () AND LEFT A MESSAGE AGAIN. STILL NO CALL BACK. CHARGE NURSE MADE AWARE. PATIENT'S RECORD OF FORM FILLED OUT AND PLACED IN CHART.
--- NOTE | 2019-10-25 02:55 | NUR ---
RN NOTE: PATIENT'S BODY AND HIS PERSONAL BELONGINGS PICKED UP BY SECURITY AND MOV[place] [facility] [place]
--- NOTE | 2019-10-25 07:10 | NUR ---
RN NOTE: CALLED [facility] () AND MADE AWARE THAT PATIENT AT 0123. ASKED THE ABOUT THE MORTUARY. PER , SHE DOES NOT HAVE THE FULL INFORMATION AT THIS TIME BUT WILL CALL THE RN TRICOT KNITTER. CHARGE NURSE MADE AWARE.
== END 2019-10-25 01:27 | disposition expired | DRG 870 ==
LOC: ER 17:12 → ICU 19:22
PROVIDERS: ADMIT Family Medicine; ATTEND Nurse Practitioner Acute Care
PROC: 5A1955Z Respiratory Ventilation, Greater than 96 Consecutive Hours (ICD-10-PCS; principal; 2019-09-26)
PROC: 0BH18EZ Insertion of Endotracheal Airway into Trachea, Via Natural or Artificial Opening Endoscopic (ICD-10-PCS; 2019-09-26)
PROC: 5A12012 Performance of Cardiac Output, Single, Manual (ICD-10-PCS; 2019-09-26)
PROC: 02HV33Z Insertion of Infusion Device into Superior Vena Cava, Percutaneous Approach (ICD-10-PCS; 2019-09-26)
PROC: B548ZZA Ultrasonography of Superior Vena Cava, Guidance (ICD-10-PCS; 2019-09-26)
PROC: 5A1D70Z Performance of Urinary Filtration, Intermittent, Less than 6 Hours Per Day (ICD-10-PCS; 2019-09-28)
DX: A41.9 Sepsis, unspecified organism (principal); I21.A1 Myocardial infarction type 2; N18.6 End stage renal disease; J69.0 Pneumonitis due to inhalation of food and vomit; J96.01 Acute respiratory failure with hypoxia; E43 Unspecified severe protein-calorie malnutrition; G93.41 Metabolic encephalopathy; J96.02 Acute respiratory failure with hypercapnia; R65.21 Severe sepsis with septic shock; I12.0 Hypertensive chronic kidney disease with stage 5 chronic kidney disease or end stage renal disease; E87.1 Hypo-osmolality and hyponatremia; E87.2 Acidosis; G93.1 Anoxic brain damage, not elsewhere classified; J98.11 Atelectasis; Z99.11 Dependence on respirator [ventilator] status; J90 Pleural effusion, not elsewhere classified; A04.72 Enterocolitis due to Clostridium difficile, not specified as recurrent; C78.01 Secondary malignant neoplasm of right lung; C78.02 Secondary malignant neoplasm of left lung; C79.51 Secondary malignant neoplasm of bone; J91.8 Pleural effusion in other conditions classified elsewhere; K92.2 Gastrointestinal hemorrhage, unspecified; B37.89 Other sites of candidiasis; Z99.2 Dependence on renal dialysis; E11.22 Type 2 diabetes mellitus with diabetic chronic kidney disease; I48.0 Paroxysmal atrial fibrillation; K21.9 Gastro-esophageal reflux disease without esophagitis; D63.8 Anemia in other chronic diseases classified elsewhere; D69.6 Thrombocytopenia, unspecified; E11.40 Type 2 diabetes mellitus with diabetic neuropathy, unspecified; E11.621 Type 2 diabetes mellitus with foot ulcer; E78.5 Hyperlipidemia, unspecified; I27.20 Pulmonary hypertension, unspecified; L30.4 Erythema intertrigo; R13.10 Dysphagia, unspecified; Z66 Do not resuscitate; I95.9 Hypotension, unspecified; D72.829 Elevated white blood cell count, unspecified; E11.65 Type 2 diabetes mellitus with hyperglycemia; I46.9 Cardiac arrest, cause unspecified; L98.8 Other specified disorders of the skin and subcutaneous tissue; L97.519 Non-pressure chronic ulcer of other part of right foot with unspecified severity; M20.42 Other hammer toe(s) (acquired), left foot; M20.41 Other hammer toe(s) (acquired), right foot; C73 Malignant neoplasm of thyroid gland; E89.0 Postprocedural hypothyroidism; G40.901 Epilepsy, unspecified, not intractable, with status epilepticus; Z68.25 Body mass index [BMI] 25.0-25.9, adult; K52.9 Noninfective gastroenteritis and colitis, unspecified; S00.412A Abrasion of left ear, initial encounter; X58.XXXA Exposure to other specified factors, initial encounter; Y93.9 Activity, unspecified; Y92.009 Unspecified place in unspecified non-institutional (private) residence as the place of occurrence of the external cause; L89.90 Pressure ulcer of unspecified site, unspecified stage; N50.89 Other specified disorders of the male genital organs
CPT/HCPCS: 31720; 36415; 36600; 70450-TC; 71045-TC; 71250-TC; 74018; 80048-TC; 80053-TC; 80061-TC; 80076-TC; 80164-TC; 80202-TC; 82247-TC; 82248-TC; 82272-TC; 82728-TC; 82803-TC; 82962-TC; 83540-TC; 83605-TC; 83735-TC; 84100-TC; 84439-TC; 84443-TC; 84484-TC; 85025-TC; 85610-TC; 85730-TC; 86706; 86800; 87040-TC; 87070-TC; 87081-TC; 87186-TC; 87340; 90935-TC; 93307-TC; 94002; 94002-TC; 94003-TC; 94760-TC; 94762-TC; 94799-TC; 95819-TC; 99082-TC; A4216; A6248; A6253; A6403; C9113; G0378; J0171; J0360; J0461; J0692; J0885; J1265; J1642; J1644; J1815; J2060; J2370; J2543; J3370; J3475; J3490; J7030; J7040; J7042; J7050; J7060; P9045; P9047